=== PATIENT | female | born 1990 | race Caucasian/White ===

== ENCOUNTER 2021-12-20 11:04 | Inpatient (IN) ==
[2021-12-20] MEDS ORDERED: ONDANSETRON INJ 2 MG/ML 2 ML VIAL IV STA (12:04)
[2021-12-20] MEDS ORDERED: KETOROLAC TROMETHAMINE 15 MG/ML VIAL IV STA (12:04)
[2021-12-20] MEDS ORDERED: SODIUM CHLORIDE 0.9% 1000ML 1,000 ML IV STA (12:04)
[2021-12-20] MEDS ORDERED: CLINDAMYCIN/D5W 900 MG/50 ML BAG IV ONE (12:06)
--- NOTE | 2021-12-20 12:12 | Emergency Department Note ---
History of Present Illness General Chief complaint: Dental/Oral Stated complaint: POSSIBLE INFECTION IN MOUTH Time Seen by Provider: 12/20/21 11:56 Source: patient Mode of arrival: ambulatory Limitations: no limitations History of Present Illness Maximum Pain Intensity: 10 This patient is a 31-year-old female who comes in complaining of of right lower jaw pain and swelling. She has had a tooth ache for couple days and a lower molar on that side which has dental caries. It is gotten increasingly painful and swollen overnight it hurts to talk or swallow she said she had temperature up to 103 she has been using [id number] Tylenol but not exceeding [id number] dosages. No shortness of breath he does feel full. No nausea or vomiting she denies no abdominal pain no trauma or injury. She cannot eat because it hurts. Home Medications Medication Instructions Recorded Confirmed Type acetaminophen 500 mg tablet 0 mg PO DIRECTED PRN Pain 12/20/21 12/20/21 History (Tylenol Extra Strength) ferrous sulfate 325 mg (65 mg 325 mg PO 3XWK 12/20/21 12/20/21 History iron) tablet (iron) ibuprofen 200 mg tablet 0 mg PO Q6H PRN Pain 12/20/21 12/20/21 History Allergies Allergy/AdvReac Type Severity Reaction Status Date / Time penicillin V Allergy Unknown RX Verified 12/20/21 16:48 CHILD;HAD AMOXICILLIN W/O PROBLEM Past Med/Surg History Family History Other Family history non-contributory Social History Smoking Status: Current every day smoker Tobacco Type: Cigarettes Preferred Language: Croatian Feels Safe at Home: Yes Immunizations: Past medical historydenies. Denies diabetes. She does not have a current dentist or primary care physician Review of Systems A total of 10 systems reviewed and were otherwise negative Physical Exam Vital Signs Vital Signs - 24 hr 12/20/21 11:08 12/20/21 12:45 12/20/21 12:57 Temperature 36.6 C Temperature Source Temporal Artery Scan Pulse Rate 91 H 80 Pulse Rate from SpO2 Sensor Respiratory Rate 18 17 Respiratory Effort / Characteristics Non-Labored Spontaneous Respiratory Depth Normal Respiratory Pattern Regular Blood Pressure 137/98 Blood Pressure Mean 111 Blood Pressure Position Sitting Pulse Oximetry 99 95 Oxygen Delivery Method Room Air Room Air Sepsis Recent Fever Within 48 Hours Yes Sepsis New/Unexplained Change in Mental Status No Sepsis Action Taken by Nursing No Action Required 12/20/21 13:00 12/20/21 13:10 12/20/21 13:20 Temperature Temperature Source Pulse Rate 80 Pulse Rate from SpO2 Sensor Respiratory Rate 16 23 21 Respiratory Effort / Characteristics Respiratory Depth Respiratory Pattern Blood Pressure Blood Pressure Mean Blood Pressure Position Pulse Oximetry Oxygen Delivery Method Sepsis Recent Fever Within 48 Hours Sepsis New/Unexplained Change in Mental Status Sepsis Action Taken by Nursing 12/20/21 13:30 12/20/21 13:40 12/20/21 13:52 Temperature Temperature Source Pulse Rate 77 89 102 H Pulse Rate from SpO2 Sensor Respiratory Rate 15 24 22 Respiratory Effort / Characteristics Respiratory Depth Respiratory Pattern Blood Pressure Blood Pressure Mean Blood Pressure Position Pulse Oximetry Oxygen Delivery Method Sepsis Recent Fever Within 48 Hours Sepsis New/Unexplained Change in Mental Status Sepsis Action Taken by Nursing 12/20/21 14:14 12/20/21 14:20 12/20/21 14:23 Temperature Temperature Source Pulse Rate 85 85 Pulse Rate from SpO2 Sensor Respiratory Rate 17 22 Respiratory Effort / Characteristics Respiratory Depth Respiratory Pattern Blood Pressure 127/78 Blood Pressure Mean 94 Blood Pressure Position Pulse Oximetry Oxygen Delivery Method Sepsis Recent Fever Within 48 Hours Sepsis New/Unexplained Change in Mental Status Sepsis Action Taken by Nursing 12/20/21 14:23 12/20/21 14:30 12/20/21 14:30 Temperature Temperature Source Pulse Rate 76 77 Pulse Rate from SpO2 Sensor 74 81 Respiratory Rate 14 17 Respiratory Effort / Characteristics Respiratory Depth Respiratory Pattern Blood Pressure 128/82 Blood Pressure Mean 97 Blood Pressure Position Pulse Oximetry 99 98 Oxygen Delivery Method Sepsis Recent Fever Within 48 Hours Sepsis New/Unexplained Change in Mental Status Sepsis Action Taken by Nursing 12/20/21 14:40 12/20/21 14:50 12/20/21 15:00 Temperature Temperature Source Pulse Rate 85 72 Pulse Rate from SpO2 Sensor 81 74 Respiratory Rate 16 11 L Respiratory Effort / Characteristics Respiratory Depth Respiratory Pattern Blood Pressure 112/83 Blood Pressure Mean 92 Blood Pressure Position Pulse Oximetry 97 99 Oxygen Delivery Method Sepsis Recent Fever Within 48 Hours Sepsis New/Unexplained Change in Mental Status Sepsis Action Taken by Nursing 12/20/21 15:00 12/20/21 15:10 12/20/21 15:20 Temperature Temperature Source Pulse Rate 88 73 76 Pulse Rate from SpO2 Sensor Respiratory Rate 18 17 16 Respiratory Effort / Characteristics Respiratory Depth Respiratory Pattern Blood Pressure Blood Pressure Mean Blood Pressure Position Pulse Oximetry Oxygen Delivery Method Sepsis Recent Fever Within 48 Hours Sepsis New/Unexplained Change in Mental Status Sepsis Action Taken by Nursing 12/20/21 15:36 12/20/21 15:40 12/20/21 15:50 Temperature Temperature Source Pulse Rate 92 H 75 81 Pulse Rate from SpO2 Sensor Respiratory Rate 27 H 15 12 Respiratory Effort / Characteristics Respiratory Depth Respiratory Pattern Blood Pressure Blood Pressure Mean Blood Pressure Position Pulse Oximetry Oxygen Delivery Method Sepsis Recent Fever Within 48 Hours Sepsis New/Unexplained Change in Mental Status Sepsis Action Taken by Nursing 12/20/21 16:00 12/20/21 16:20 12/20/21 16:30 Temperature Temperature Source Pulse Rate 81 83 Pulse Rate from SpO2 Sensor Respiratory Rate 11 L 19 Respiratory Effort / Characteristics Respiratory Depth Respiratory Pattern Blood Pressure 127/91 Blood Pressure Mean 103 Blood Pressure Position Pulse Oximetry Oxygen Delivery Method Sepsis Recent Fever Within 48 Hours Sepsis New/Unexplained Change in Mental Status Sepsis Action Taken by Nursing 12/20/21 16:30 Temperature Temperature Source Pulse Rate 80 Pulse Rate from SpO2 Sensor Respiratory Rate 18 Respiratory Effort / Characteristics Respiratory Depth Respiratory Pattern Blood Pressure Blood Pressure Mean Blood Pressure Position Pulse Oximetry Oxygen Delivery Method Sepsis Recent Fever Within 48 Hours Sepsis New/Unexplained Change in Mental Status Sepsis Action Taken by Nursing General: Well developed well nourished young female who appears uncomfortable secondary to pain but in no acute respiratory distress, breathing comfortably on room air. Normal speech, not muffled. Not drooling. HEENT: Normal cephalic atraumatic. Pupils are equal round and reactive to light. Extraocular movements are intact. Oropharynx is pink with moist mucous membranes. No swelling of the mouth lips or tongue. She does have some swelli ng under the jaw on the right and towards the center. Looking in the mouth the floor the mouth is soft and nothing to suggest Ludewig's angina. There is a dental large dental carry on the right lower molar. No definite fluctuance she has a degree of trismus and is very tender Neck: Supple with a midline trachea. No meningeal signs or stiffness, no JVD or bruits. No Stridor. Chest: Clear to auscultation bilaterally. No wheezes or rhonchi. No increased work of breathing. Heart: Regular rate and rhythm without murmurs or gallops. Abdomen: Soft nontender, nondistended without rebound guarding or rigidity. Extremities: No cyanosis clubbing or edema. No calf tenderness or assymetry Spine/Back. Non tender to palpation. No CVA tenderness Skin: Good turgor without rashes. Neurologic exam: Cranial nerves two through 12 are intact. Motor and sensation are intact and symmetrical throughout. Course Administered Medications Discontinued Medications Sodium Chloride (Nss 1000ml) 1,000 mls @ 999 mls/hr IV .Q1H1M STA Stop: 12/20/21 13:04 Last Infusion: 12/20/21 13:43 Dose: 0 mls/hr Documented By: Admin: 12/20/21 12:37 Dose: 999 mls/hr Documented By: JONAS Clindamycin Phosphate (Cleocin/D5w) 900 mg in 50 mls @ 100 mls/hr IV NOW ONE Stop: 12/20/21 12:35 Last Infusion: 12/20/21 13:43 Dose: 0 mls/hr Documented By: Admin: 12/20/21 12:44 Dose: 100 mls/hr Documented By: LUKE Ioversol (Optiray 320 100ml) 94 ml IV ONCE ONE Stop: 12/20/21 14:06 Last Admin: 12/20/21 14:06 Dose: 94 ml Documented By: LAVELL Ketorolac Tromethamine (Ketorolac Tromethamine 15 Mg/Ml Vial) 10 mg IV NOW STA Stop: 12/20/21 12:05 Last Admin: 12/20/21 12:37 Dose: 10 mg Documented By: JONAS Morphine Sulfate (Morphine Sulfate 4 Mg/Ml 1 Ml Carp\\Vial) 4 mg IV NOW STA Stop: 12/20/21 13:24 Last Admin: 12/20/21 13:38 Dose: 4 mg Documented By: AM Morphine Sulfate (Morphine Sulfate 4 Mg/Ml 1 Ml Carp\\Vial) 4 mg IV NOW STA Stop: 12/20/21 17:17 Last Admin: 12/20/21 17:23 Dose: 4 mg Documented By: [facility] Ondansetron HCl (Ondansetron Inj 2 Mg/Ml 2 Ml Vial) 4 mg IV NOW STA Stop: 12/20/21 12:05 Last Admin: 12/20/21 12:37 Dose: 4 mg Documented By: NDW Medical Decision Making Differential Diagnosis Dental carry, abscess, Ludewig's angina, cellulitis Medical Records Attestation: I reviewed the patient's medical records. Home Medications Current Medication List: was personally reviewed by me Laboratory Data Attestation: I reviewed the patient's lab results. Result diagrams: 12/20/21 12:35 12/20/21 12:35 Lab Results 12/20/21 12/20/21 12/20/21 Range/Units 12:35 12:35 12:35 WBC 13.30 H (4.8-10.8) K/ul RBC 4.30 (3.93-5.22) M/uL Hgb 13.6 (12.0-16.0) g/dl Hct 40.0 (34.1-44.9) % MCV 93.0 (80.0-100.0) fL MCH 31.6 (25.0-34.0) pg MCHC 34.0 (32.0-36.0) g/dL RDW Std Deviation 41.2 (36.4-46.3) fL RDW Coeff of Amber 12.1 (11.5-14.5) % Plt Count 319 (130-400) K/uL MPV 9.0 L (9.4-12.3) fL Immature Gran % (Auto) 0.3 % Neut % (Auto) 71.7 % Lymph % (Auto) 17.5 % Mcmullen % (Auto) 9.3 % Eos % (Auto) 0.7 % Baso % (Auto) 0.5 % Neut # (Auto) 9.53 H (1.4-6.5) K/uL Lymph # (Auto) 2.33 (1.2-3.4) K/uL Mcmullen # (Auto) 1.24 H (0.24-0.82) K/uL Eos # (Auto) 0.09 (0-0.50) K/uL Baso # (Auto) 0.07 (0-0.2) K/uL Immature Gran # (Auto) 0.04 H (0.00-0.02) K/uL Sodium 138 (136-145) mmol/L Potassium 3.0 L (3.5-5.1) mmol/L Chloride 107 (98-107) mmol/L Carbon Dioxide 24 (21-32) mmol/L Anion Gap 7 (3-11) BUN 7 (6-23) mg/dl Creatinine 0.60 (0.6-1.2) mg/dl Est Cr Clr Drug Dosing 143.0 ml/min Est GFR ( Amer) 139.8 ml/min Est GFR (Non-Af Amer) 120.6 ml/min BUN/Creatinine Ratio 11.7 (10-20) Glucose 102 H (70-99(Fasting)) mg/dl Calcium 8.9 (8.5-10.1) mg/dl Total Bilirubin 0.8 (0.2-1.0) mg/dl AST 14 (13-39) U/L ALT 12 (7-52) U/L Alkaline Phosphatase 61 (34-104) U/L Total Protein 6.7 (6.0-8.3) gm/dl Albumin 4.1 (3.4-5.0) gm/dl Globulin 2.6 (2.5-4.0) gm/dl Albumin/Globulin Ratio 1.6 (0.9-2) HCG, Qual Negative (Negative) SARS-CoV-2, RNA, NAAT (NEGATIVE) 12/20/21 Range/Units 12:48 WBC (4.8-10.8) K/ul RBC (3.93-5.22) M/uL Hgb (12.0-16.0) g/dl Hct (34.1-44.9) % MCV (80.0-100.0) fL MCH (25.0-34.0) pg MCHC (32.0-36.0) g/dL RDW Std Deviation (36.4-46.3) fL RDW Coeff of Amber (11.5-14.5) % Plt Count (130-400) K/uL MPV (9.4-12.3) fL Immature Gran % (Auto) % Neut % (Auto) % Lymph % (Auto) % Mcmullen % (Auto) % Eos % (Auto) % Baso % (Auto) % Neut # (Auto) (1.4-6.5) K/uL Lymph # (Auto) (1.2-3.4) K/uL Mcmullen # (Auto) (0.24-0.82) K/uL Eos # (Auto) (0-0.50) K/uL Baso # (Auto) (0-0.2) K/uL Immature Gran # (Auto) (0.00-0.02) K/uL Sodium (136-145) mmol/L Potassium (3.5-5.1) mmol/L Chloride (98-107) mmol/L Carbon Dioxide (21-32) mmol/L Anion Gap (3-11) BUN (6-23) mg/dl Creatinine (0.6-1.2) mg/dl Est Cr Clr Drug Dosing ml/min Est GFR ( Amer) ml/min Est GFR (Non-Af Amer) ml/min BUN/Creatinine Ratio (10-20) Glucose (70-99(Fasting)) mg/dl Calcium (8.5-10.1) mg/dl Total Bilirubin (0.2-1.0) mg/dl AST (13-39) U/L ALT (7-52) U/L Alkaline Phosphatase (34-104) U/L Total Protein (6.0-8.3) gm/dl Albumin (3.4-5.0) gm/dl Globulin (2.5-4.0) gm/dl Albumin/Globulin Ratio (0.9-2) HCG, Qual (Negative) SARS-CoV-2, RNA, NAAT NEGATIVE (NEGATIVE) Imaging Data Radiologist's Impression: Soft Tissue Neck CT 12/20/21 12:06 CT SCAN OF THE NECK WITH IV CONTRAST CLINICAL HISTORY: Right-sided neck pain and swelling. Clinical concern for abscess. COMPARISON STUDY: CT of the neck dated 09/29/2021. TECHNIQUE: Following the IV administration of 94 cc of Optiray 320, CT scan of the soft tissues of the neck was performed from the skull base to the upper chest. Images are reviewed in the axial, sagittal, and coronal planes. IV contrast was administered without complication. A dose lowering technique was utilized adhering to the principles of ALARA. CT DOSE: 530.17 mGy.cm FINDINGS: Dentition: There is a large periapical lucency involving the most posterior right mandibular molar. There is cortical breakthrough along the posterior cortex. There is a 1.0 cm periodontal abscess seen deep to the mandible on axial image #207. There is surrounding sublingual soft tissue infiltration which inv olves the floor the mouth. Pharynx: As noted above, there is subsegmental inflammation related to a periodontal abscess. Edema involves the anterior pharyngeal soft tissues, right greater than left. As well as the right parapharyngeal fat. There is also mild edema of the right-sided tonsils. There is no peritonsillar fluid collection. The pharyngeal airway is patent. There is no evidence of mass lesion. The vocal cords are symmetric. The left parapharyngeal fat is well maintained. The prevertebral/retropharyngeal soft tissues are within normal limits. There is mild edema of the epiglottis. Soft tissues: There is infiltration of the deep soft tissues in the anterior neck bilaterally, right greater than left. This extends from the mandible to the level of the thyroid cartilage. Lymphadenopathy: There are numerous mildly enlarged cervical lymph nodes which measure up to 1.5 cm in length. These are likely reactive Thyroid: Normal in size and attenuation. Salivary glands: The parotid glands and the left submandibular gland are within normal limits. There is infiltration around the right submandibular gland. Brain parenchyma: The visualized brain parenchyma at the skull base is normal in appearance. Vascular structures: The carotid arteries and jugular veins are patent. The left vertebral artery is diminutive and terminates as the PICA. Skeletal structures: Imaged portions of the calvarium at the skull base are within normal limits. The cervical spine appears intact. Orbits: The bony orbits are intact. Orbital contents are normal as visualized. Sinuses and mastoids: There is trace mucosal thickening within the maxillary antra. The remaining paranasal sinuses are clear. The mastoid air cells are well pneumatized. Lung apices: A 6 mm groundglass nodule is seen at the left apex on image #385. This is unchanged. Upper lobe lung parenchyma is otherwise clear as imaged there An accessory azygous fissure is incidentally noted. Imaged portions of the trachea are patent. IMPRESSION: 1. There is a large periapical lucency involving the most posterior right mandibular molar with associated cortical breakthrough and a 1.0 cm periodontal abscess deep to the mandible. 2. Inflammation involves the right sublingual space, the right floor the mouth, and extends to the anterior pharynx as well as the right parapharyngeal soft tissue. Olman's angina is not excluded and clinical correlation will be essen tial. 3. There is associated superficial cellulitis of the right anterior neck and reactive cervical lymphadenopathy. There is also reactive inflammation around the right submandibular gland. 4. No significant airway compromise is identified at this time. 5. A 6 mm groundglass nodule is again seen at the left apex. ACT 112: Negative or not required by law. Electronically signed by: Lm Morales M.D. 12/20/2021 2:24 PM MDM Narrative This patient comes in as described above. 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 She has dental caries and now has some jaw swelling. IV access established and she was hydrated with a 1 L IV normal saline bolus given the fact that she is having hard time eating. She has no evidence that she has any airway compromise on my exam the floor the mouth is soft and the trachea is midline. She has no stridor. I did order blood work I ordered clindamycin 900 mg IV given the fact that she is allergic to penicillin. I also gave her Toradol 10 mg IV for pain. CAT scan was obtained to evaluate for possible abscess or deeper infection. She was reassessed frequently. She did receive if morphine 4 mg IV and was resting comfortably. The patient did have an abscess on CT that appears to be dental in origin there is concerns for an early developing Ludewig's but the airway is intact. I discussed with Dr. Hendrix, who recommended that I talked to Dr. Dawkins as this was an odontogenic process. Dr. Dawkins agrees and he will see the patient today he wants to keep the patient on antibiotics and fluids and pain management and he will plan on operating on her. He wanted to have the medical team see her for admission. Continuous cardiac monitoring: Orders placed in EMR for continuous cardiac monitoring. Upon my interpretation she was noted to be in normal sinus rhythym at 80. Impression & Plan Olman's angina, Toothache, Dental caries, Periodontal abscess, Not currently , Lab test negative for COVID-19 virus Discharge Plan Visit Data Chief Complaint: Dental/Oral Stated Complaint: POSSIBLE INFECTION IN MOUTH ED Provider: Brandyn Cardoza Discharge Problem: Olman's angina, Toothache, Dental caries, Periodontal abscess, Not currently , Lab test negative for COVID-19 virus Forms Stand Alone Forms: My [facility] Prescriptions Prescriptions: No Action acetaminophen [Tylenol Extra Strength] 500 mg Tablet 0 mg PO DIRECTED PRN (Reason: Pain) Rx Instructions: PER PT " MANY POSSIBLE WITHOUT OVERDOSING". ferrous sulfate [iron] 325 mg (65 mg iron) Tablet 325 mg PO 3XWK Rx Instructions: PER PT "USUALLY 2-3 X WK". ibuprofen 200 mg Tablet 0 mg PO Q6H PRN (Reason: Pain) Rx Instructions: PER PT " MANY POSSIBLE WITHOUT OVERDOSING". Referrals Referrals: PCP,NO [Primary Care Provider] -
[2021-12-20 13:06] LABS: Basophils # (auto) 0.07 K/uL (0-0.2); Basophils % (auto) 0.5 %; Eosinophils # (auto) 0.09 K/uL (0-0.50); Eosinophils % (auto) 0.7 %; Hemoglobin 13.6 g/dl (12.0-16.0); Immature Granulocytes # (auto) 0.04 K/uL (0.00-0.02); Immature Granulocytes % (auto) 0.3 %; Lymphocytes # (auto) 2.33 K/uL (1.2-3.4); Lymphocytes % (auto) 17.5 %; Mean Corpuscular Hemoglobin 31.6 pg (25.0-34.0); Monocytes # (auto) 1.24 K/uL (0.24-0.82); Monocytes % (auto) 9.3 %; Neutrophils # (auto) 9.53 K/uL (1.4-6.5); Neutrophils % (auto) 71.7 %; Platelet Count 319 K/uL (130-400); RDW Coefficient of Variation 12.1 % (11.5-14.5); RDW Standard Deviation 41.2 fL (36.4-46.3)
[2021-12-20] MEDS ORDERED: MoRPHine SULFATE 4 MG/ML 1 ML CARP\\VIAL IV STA ×3 (13:23→19:40)
[2021-12-20 13:25] LABS: Pregnancy Test, Serum Negative (Negative)
[2021-12-20 13:26] LABS: Albumin Globulin Ratio 1.6 (0.9-2); Albumin Level 4.1 gm/dl (3.4-5.0); BUN Creatinine Ratio 11.7 (10-20); Bilirubin,Total 0.8 mg/dl (0.2-1.0); Calcium 8.9 mg/dl (8.5-10.1); Est GFR (African American) 139.8 ml/min; Est GFR (Non-African American) 120.6 ml/min; Globulin 2.6 gm/dl (2.5-4.0); Total Protein 6.7 gm/dl (6.0-8.3)
[2021-12-20] MEDS ORDERED: OPTIRAY 320 100ml IV ONE (14:05)
--- NOTE | 2021-12-20 14:25 | CT Scan Report ---
CT SCAN OF THE NECK WITH IV CONTRAST CLINICAL HISTORY: Right-sided neck pain and swelling. Clinical concern for abscess. COMPARISON STUDY: CT of the neck dated 09/29/2021. TECHNIQUE: Following the IV administration of 94 cc of Optiray 320, CT scan of the soft tissues of th e neck was performed from the skull base to the upper chest. Images are reviewed in the axial, sagitt al, and coronal planes. IV contrast was administered without complication. A dose lowering techniqu e was utilized adhering to the principles of ALARA. CT DOSE: 530.17 mGy.cm FINDINGS: Dentition: There is a large periapical lucency involving the most posterior right mandibular molar. T here is cortical breakthrough along the posterior cortex. There is a 1.0 cm periodontal abscess seen deep to the mandible on axial image #207. There is surrounding sublingual soft tissue infiltration wh ich involves the floor the mouth. Pharynx: As noted above, there is subsegmental inflammation related to a periodontal abscess. Edema i nvolves the anterior pharyngeal soft tissues, right greater than left. As well as the right paraphary ngeal fat. There is also mild edema of the right-sided tonsils. There is no peritonsillar fluid colle ction. The pharyngeal airway is patent. There is no evidence of mass lesion. The vocal cords are symm etric. The left parapharyngeal fat is well maintained. The prevertebral/retropharyngeal soft tissues are within normal limits. There is mild edema of the epiglottis. Soft tissues: There is infiltration of the deep soft tissues in the anterior neck bilaterally, right greater than left. This extends from the mandible to the level of the thyroid cartilage. Lymphadenopathy: There are numerous mildly enlarged cervical lymph nodes which measure up to 1.5 cm i n length. These are likely reactive Thyroid: Normal in size and attenuation. Salivary glands: The parotid glands and the left submandibular gland are within normal limits. There is infiltration around the right submandibular gland. Brain parenchyma: The visualized brain parenchyma at the skull base is normal in appearance. Vascular structures: The carotid arteries and jugular veins are patent. The left vertebral artery is diminutive and terminates as the PICA. Skeletal structures: Imaged portions of the calvarium at the skull base are within normal limits. The cervical spine appears intact. Orbits: The bony orbits are intact. Orbital contents are normal as visualized. Sinuses and mastoids: There is trace mucosal thickening within the maxillary antra. The remaining par anasal sinuses are clear. The mastoid air cells are well pneumatized. Lung apices: A 6 mm groundglass nodule is seen at the left apex on image #385. This is unchanged. Upp er lobe lung parenchyma is otherwise clear as imaged there An accessory azygous fissure is incidental ly noted. Imaged portions of the trachea are patent. IMPRESSION: 1. There is a large periapical lucency involving the most posterior right mandibular molar with assoc iated cortical breakthrough and a 1.0 cm periodontal abscess deep to the mandible. 2. Inflammation involves the right sublingual space, the right floor the mouth, and extends to the an terior pharynx as well as the right parapharyngeal soft tissue. Olman's angina is not excluded and c linical correlation will be essential. 3. There is associated superficial cellulitis of the right anterior neck and reactive cervical lympha denopathy. There is also reactive inflammation around the right submandibular gland. 4. No significant airway compromise is identified at this time. 5. A 6 mm groundglass nodule is again seen at the left apex. ACT 112: Negative or not required by law. Electronically signed by: Lm Morales M.D. 12/20/2021 2:24 PM
--- NOTE | 2021-12-20 16:06 | History & Physical Report ---
Date of Service December 20, 2021 Assessment & Plan (1) Periodontal abscess: Plan: With significant swelling in anterior neck, cervical reactive lymphadenopathy, 1.0 cm periodontal abscess seen deep to the mandible in right posterior mandibular molar, with surrounding sublingual soft tissue infiltration involving the floor of the mouth as well as subsegmental inflammation with edema involving the anterior pharyngeal soft tissues, right greater than left as well as in right parapharyngeal fat with patent airway, mild edema of epiglottis, as well as infiltration in deep soft tissues in anterior neck bilaterally R>L from mandible to thyroid cartilage. 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 - Clindamycin 900mg IV Q8h and add Levaquin 750mg IV daily as per UpToDate recommendations for Olman's angina (given PCN allergy) - Tylenol for pain fevers, IV Toradol, morphine for pain. Anti emetics ordered. - IVF with K riders for repletion. - Oral/maxillofacial surgery consulted, appreciate their recommendations. -watch for worsening of airway status, if worsens, would need practive intubation -steroids not recommended to be given as per review of UpToDate as no benefit (2) Hypokalemia: Plan: - 3.0, in setting of poor PO intake. - Will replace in IVF, recheck with AM labs. (3) Lung nodule seen on imaging study: Plan: 6mm ground glass nodule again seen in left apex when compared to CT neck she had in 09/2021 Needs outpt follow up and CT Chest as outpt with PCP Plan - Admit to med/surg. - SCDs for VTE ppx. - Full Code. History of Present Illness Chief Complaint: right side jaw pain, swelling x 2 days Primary Care Provider: NO PCP Yancy Ramesh is a 31-year-old previously healthy female who presents today with right lower jaw pain. Patient has had a cracked tooth on her right side for 1-2 years now that she has known about, however over the past 2 days she developed some redness on the right side of her jaw, and beginning yesterday this rapidly turned into severe swelling, severe pain, and is associated with fevers at home. She does not have SOB or difficulty with secretions, however the swelling and pain has made it very difficult for her to eat, drink, and speak. In ED, her vital signs are within normal limits and stable. Labs are significant for elevated WBC at 13.30, potassium 10.0. test negative. CT of the soft tissues of the neck showed a large periapical lucency involving most posterior right mandibular molar associated cortical breakthrough and a 1.0 cm periodontal abscess deep to the mandible as well as inflammation involving large portion of the right sublingual space, mouth floor, and anterior phraynx and parapharyngeal soft tissue. Associated superficial cellulitis of the right anterior neck with reactive cervical lymphadenopathy noted. Allergies Allergy/AdvReac Type Severity Reaction Status Date / Time penicillin V Allergy Unknown RX Verified 12/20/21 16:48 CHILD;HAD AMOXICILLIN W/O PROBLEM Home Medications Medication Instructions Recorded Confirmed Type acetaminophen 500 mg tablet 0 mg PO DIRECTED PRN Pain 12/20/21 12/20/21 History (Tylenol Extra Strength) ferrous sulfate 325 mg (65 mg 325 mg PO 3XWK 12/20/21 12/20/21 History iron) tablet (iron) ibuprofen 200 mg tablet 0 mg PO Q6H PRN Pain 12/20/21 12/20/21 History Past Med/Surg History Medical History (Updated 12/20/21 @ 20:06 by Oneida Damon MD) Lung nodule seen on imaging study No pertinent past medical history Surgical History No history of previous surgery Family History Other Family history non-contributory Social History Smoking Status: Current every day smoker Tobacco Type: Cigarettes Preferred Language: Latvian Feels Safe at Home: Yes Review of Systems Review of Systems: Constitutional: fever/chills x 1 day; no weakness, fatigue, myalgias, anorexia, night sweats Eyes: No diplopia, no worsening or blurred vision ENT: right sided jaw pain, swelling with difficulty swallowing liquids, chewing, talking Respiratory: No cough, sputum, dyspnea at rest or on exertion Cardiovascular: No chest pain, tightness or palpitations Abdomen: No pain, nausea, vomiting, diarrhea or constipation : Denies dysuria, hematuria, increased urgency/frequency, urinary retention Musculoskeletal: No joint pain, calf pain, swelling Neurologic: No weakness, numbness/tingling, or balance problems Psychiatric: No anxiety or depression Skin: No rash or itch Physical Exam Physical Exam: General: awake, alert, no apparent distress Head: Normocephalic, atraumatic ENT: airway difficult to assess d/t pain with opening jaw, however patient maintaining airway, without breathing or swallowing difficulty; PERRL, EOMI, no pharyngeal exudate, mucous membranes moist Chest: Clear to auscultation, on room air, no adventitious breath sounds Cardiac: Regular rate and rhythm, no murmur, no JVD, normal peripheral pulses, good capillary refill Abdominal: NABS x 4 quadrants, soft, nontender to palpation, no rebound, guarding or tenderness Extremities: Normal inspection, no peripheral edema or erythema, calfs nontender to palpation Psych: Normal mood and affect Neuro: AAO x 3, strength intact bilaterally and rated 5/5, no motor deficits, speech is clear, no peripheral sensory deficits Skin: no rash or erythema Results & Data Results & Data ([facility]) Vital Signs (Past 12 Hours) Vital Signs Temp Pulse Resp BP Pulse Ox O2 Del Method 12/20/21 15:50 81 12 12/20/21 15:40 75 15 12/20/21 15:36 92 H 27 H 12/20/21 15:20 76 16 12/20/21 15:10 73 17 12/20/21 15:00 88 18 12/20/21 15:00 112/83 12/20/21 14:50 72 11 L 99 12/20/21 14:40 85 16 97 12/20/21 14:30 77 17 98 12/20/21 14:30 128/82 12/20/21 14:23 76 14 99 12/20/21 14:23 127/78 12/20/21 14:20 85 22 12/20/21 14:14 85 17 12/20/21 13:52 102 H 22 12/20/21 13:40 89 24 12/20/21 13:30 77 15 12/20/21 13:20 21 12/20/21 13:10 23 12/20/21 13:00 80 16 12/20/21 12:57 80 17 12/20/21 12:45 95 Room Air 12/20/21 11:08 36.6 C 91 H 18 137/98 99 Room Air Laboratory Results Abnormal lab results 12/20/21 12/20/21 Range/Units 12:35 12:35 WBC 13.30 H (4.8-10.8) K/ul MPV 9.0 L (9.4-12.3) fL Neut # (Auto) 9.53 H (1.4-6.5) K/uL Haskell # (Auto) 1.24 H (0.24-0.82) K/uL Immature Gran # (Auto) 0.04 H (0.00-0.02) K/uL Potassium 3.0 L (3.5-5.1) mmol/L Glucose 102 H (70-99(Fasting)) mg/dl Diagnostic Findings Soft Tissue Neck CT 12/20/21 12:06 CT SCAN OF THE NECK WITH IV CONTRAST CLINICAL HISTORY: Right-sided neck pain and swelling. Clinical concern for abscess. COMPARISON STUDY: CT of the neck dated 09/29/2021. TECHNIQUE: Following the IV administration of 94 cc of Optiray 320, CT scan of the soft tissues of the neck was performed from the skull base to the upper chest. Images are reviewed in the axial, sagittal, and coronal planes. IV c ontrast was administered without complication. A dose lowering technique was utilized adhering to the principles of ALARA. CT DOSE: 530.17 mGy.cm FINDINGS: Dentition: There is a large periapical lucency involving the most posterior right mandibular molar. There is cortical breakthrough along the posterior cortex. There is a 1.0 cm periodontal abscess seen deep to the mandible on axial image #207. There is surrounding sublingual soft tissue infiltration which involves the floor the mouth. Pharynx: As noted above, there is subsegmental inflammation related to a periodontal abscess. Edema involves the anterior pharyngeal soft tissues, right greater than left. As well as the right parapharyngeal fat. There is also mild edema of the right-sided tonsils. There is no peritonsillar fluid collection. The pharyngeal airway is patent. There is no evidence of mass lesion. The vocal cords are symmetric. The left parapharyngeal fat is well maintained. The prevertebral/retropharyngeal soft tissues are within normal limits. There is mild edema of the epiglottis. Soft tissues: There is infiltration of the deep soft tissues in the anterior neck bilaterally, right greater than left. This extends from the mandible to the level of the thyroid cartilage. Lymphadenopathy: There are numerous mildly enlarged cervical lymph nodes which measure up to 1.5 cm in length. These are likely reactive Thyroid: Normal in size and attenuation. Salivary glands: The parotid glands and the left submandibular gland are within normal limits. There is infiltration around the right submandibular gland. Brain parenchyma: The visualized brain parenchyma at the skull base is normal in appearance. Vascular structures: The carotid arteries and jugular veins are patent. The left vertebral artery is diminutive and terminates as the PICA. Skeletal structures: Imaged portions of the calvarium at the skull base are within normal limits. The cervical spine appears intact. Orbits: The bony orbits are intact. Orbital contents are normal as visualized. Sinuses and mastoids: There is trace mucosal thickening within the maxillary antra. The remaining paranasal sinuses are clear. The mastoid air cells are well pneumatized. Lung apices: A 6 mm groundglass nodule is seen at the left apex on image #385. This is unchanged. Upper lobe lung parenchyma is otherwise clear as imaged there An accessory azygous fissure is incidentally noted. Imaged portions of the trachea are patent. IMPRESSION: 1. There is a large periapical lucency involving the most posterior right mandibular molar with associated cortical breakthrough and a 1.0 cm periodontal abscess deep to the mandible. 2. Inflammation involves the right sublingual space, the right floor the mouth, and extends to the anterior pharynx as well as the right parapharyngeal soft tissue. Olman's angina is not excluded and clinical correlation will be essential. 3. There is associated superficial cellulitis of the right anterior neck and reactive cervical lymphadenopathy. There is also reactive inflammation around the right submandibular gland. 4. No significant airway compromise is identified at this time. 5. A 6 mm groundglass nodule is again seen at the left apex. ACT 112: Negative or not required by law. Electronically signed by: Lm Morales M.D. 12/20/2021 2:24 PM Code Status & VTE Plan Code Status Full Code. Supervising Physician Co-Signing Physician Notes PA Supervision Note: I personally saw and examined the patient. I verified all ragsdale points and agree with FORREST Mondragon with the following exceptions and/or additions: S-Pt presents with worsening neck swelling and right sided neck pain, fevers. She has a known cracked tooth but hasn't been able to see a dentist. SHe was seen at our ER in September 2021 and diagnosed with strep throat and had ncerotic appearing lymphadenopathy on right neck at that time, sent home with antibiotics. She c/o severe pain in neck R>L, worse with tilting head backwards or trying to lie down. Having pain with swallowing O- Vitals reviewed Gen: [AAOx3, NAD, tearful due to pain] HEENT: [anicteric sclerae, EOMI, posterior OP patent, with no swelling noted under tongue, +anterior and submental edema R>L with ++TTP on exam, no erythema of skin of neck, no masses palpable] CV: [RRR no mgr nl S1S2] Pulm: [CTAB no wcr, no stridor] Abd: [+BS soft NT ND no masses or hernias] Ext: [no edema] Skin: [no rashes, warm/dry] Neuro: [full strength throughout] Labs, Rads, and ECG reviewed A/P-31 yo female here with dental infection spreading to neck with possible early Olman's angina Plan updated/modified as above-continue antibiotics, pain control, await surgical eval by Dr. Dawkins PG Care Time/CCT Total # of Minutes Spent Total Time Spent with Patient: Total time spent is greater than 50% in coordination of care (as documented) at patient's floor/unit and/or counseling patient: Coding Level of Care Code 88587 Initial Inpt Care Lvl 1 Diagnoses Periodontal abscess K05.219 Hypokalemia E87.6 Lung nodule seen on imaging study R91.1
[2021-12-20] MEDS ORDERED: MoRPHine SULFATE 2 MG/ML CARP IV PRN (19:54)
[2021-12-20] MEDS ORDERED: MoRPHine SULFATE 4 MG/ML 1 ML CARP\\VIAL IV PRN (19:54)
[2021-12-20] MEDS ORDERED: KETOROLAC TROMETHAMINE 15 MG/ML VIAL IV PRN (19:54)
[2021-12-20] MEDS ORDERED: levoFLOXacin/D5W 750 MG/150 ML BAG IV STA (20:17)
[2021-12-20] MEDS ORDERED: KETOROLAC TROMETHAMINE 15 MG/ML VIAL IV ONE (20:30)
--- NOTE | 2021-12-20 20:44 | Oral/Maxillofacial Consult ---
Date of Consultation December 20, 2021 Assessment & Plan (1) Olman's angina: This is an early diagnosis as there is swelling floor of the mouth, submandibular, submental and masseter space. (2) Dental caries: # 31 gross DK (3) Trismus: secondary to the acute infection (4) Swelling of submandibular region: Plan To OR in AM FOR I AND D AND EXTRACTION # 31 History of Present Illness Reason for Consultation: acute facial swelling right and neck Attending Physician: Oneida Damon MD History of Present Illness Oral Maxillofacial Surgery Exam Present Complaint: I have pain/swelling/drainage from my infected lower right second molar # 31 Symptoms have been ongoing for a while. Tooth grossly decayed for over 2 years Last night developed pain and facial swelling--getting worse Oral Exam: Finding- Swelling in the division controller space, submandibular, floor of the mouth, edema in the submental space--this is a early Olman infection. tender gingival tissue with deep pocket formation.# 31 infected removal is clinical indicated. I and D needed intraoral ? extra oral given extend of the infection. Imaging: CT SCAN OF THE NECK WITH IV CONTRAST CLINICAL HISTORY: Right-sided neck pain and swelling. Clinical concern for abscess. COMPARISON STUDY: CT of the neck dated 09/29/2021. FINDINGS: Dentition: There is a large periapical lucency involving the most posterior right mandibular molar. There is cortical breakthrough along the posterior cortex. There is a 1.0 cm periodontal abscess seen deep to the mandible on axial image #207. There is surrounding sublingual soft tissue infiltration which involves the floor the mouth. Pharynx: As noted above, there is subsegmental inflammation related to a periodontal abscess. Edema involves the anterior pharyngeal soft tissues, right greater than left. As well as the right parapharyngeal fat. There is also mild edema of the right-sided tonsils. There is no peritonsillar fluid collection. The pharyngeal airway is patent. There is no evidence of mass lesion. The vocal cords are symmetric. The left parapharyngeal fat is well maintained. The prevertebral/retropharyngeal soft tissues are within normal limits. There is mild edema of the epiglottis. Soft tissues: There is infiltration of the deep soft tissues in the anterior neck bilaterally, right greater than left. This extends from the mandible to the level of the thyroid cartilage. Lymphadenopathy: There are numerous mildly enlarged cervical lymph nodes which measure up to 1.5 cm in length. These are likely reactive Thyroid: Normal in size and attenuation. Salivary glands: The parotid glands and the left submandibular gland are within normal limits. There is infiltration around the right submandibular gland. Sinuses and mastoids: There is trace mucosal thickening within the maxillary antra. The remaining paranasal sinuses are clear. The mastoid air cells are well pneumatized. Lung apices: A 6 mm ground glass nodule is seen at the left apex on image #385. This is unchanged. Upper lobe lung parenchyma is otherwise clear as imaged there An accessory azygous fissure is incidentally noted. Imaged portions of the trachea are patent. IMPRESSION: 1. There is a large periapical lucency involving the most posterior right mandibular molar with associated cortical breakthrough and a 1.0 cm periodontal abscess deep to the mandible. TOOTH # 31 2. Inflammation involves the right sublingual space, the right floor the mouth, and extends to the anterior pharynx as well as the right parapharyngeal soft tissue. Olman's angina is not excluded and clinical correlation will be essential. 3. There is associated superficial cellulitis of the right anterior neck and reactive cervical lymphadenopathy. There is also reactive inflammation around the right submandibular gland. 4. No significant airway compromise is identified at this time. 5. A 6 mm ground glass nodule is again seen at the left apex. Soft tissue: Swollen -floor of the mouth, tongue, submandibular space Soft tissue edema right neck and chin area. hard/soft palate, posterior pharyngeal area all with in normal limits, no pathology or abnormal findings noted. Oral Care: Overall oral care is good except for # 31 Occlusion: Class I TMJ exam: Because of limited opening not able to test ROM or function Periodontal exam: Healthy gingival tissue without evidence of periodontal pathology. Lower right shows sign of chronic periodontal disease due to the carious # 31 Head/Neck exam: Neck is swollen right side, FROM is somewhat limited due to acute infection Able to extend and flex neck with some difficulty due to infection, no airway issues, no evidence of sleep apnea. Treatment Plan: Admission for IV antibiotics, fluids and pain control. Take to OR tomorrow --NPO tonight Extraction # 31 , I&D infected spaces Set up with general anesthesia in hospital due to complexity of the procedure We will determine need for hospital stay after the OR procedure and her response to the I&D I reviewed the treatment plan and consent with the patient . Understanding was expressed. Time was given for questions regarding the surgery, risks and post op care. Discussed alternative to treatment--procedure as planned, Do not do surgery The following teeth are decayed and fractured and removal is indicated PRESTON:# 31 with intr/extraoral I&D Risks discussed: Bleeding,Pain,swelling,infection, dry socket, delayed healing, nerve injury to face,lips,tongue,chin area which could be permanent (rare). TMJ, jaw stiffness, change in bite (rare), ear pain (referred). Sinus problems like fistula or infection. Need to leave a small root fragment in place to avoid injury to nerve or sinus. Relationship of infected # 31 to nerve/sinus and risk of jaw fracture. Home care reviewed: tooth brushing, rinsing, follow up care with Dr Dawkins. diet=[id number]-isod dental. Discussed activity level, driving/work while on Rx pain Meds. Surgery to be set up in OR tomorrow with [facility] CONSENT SIGNED Allergies Allergy/AdvReac Type Severity Reaction Status Date / Time penicillin V Allergy Unknown RX Verified 12/20/21 16:48 CHILD;HAD AMOXICILLIN W/O PROBLEM Home Medications Medication Instructions Recorded Confirmed Type acetaminophen 500 mg tablet 0 mg PO DIRECTED PRN Pain 12/20/21 12/20/21 Histo ry (Tylenol Extra Strength) ferrous sulfate 325 mg (65 mg 325 mg PO 3XWK 12/20/21 12/20/21 History iron) tablet (iron) ibuprofen 200 mg tablet 0 mg PO Q6H PRN Pain 12/20/21 12/20/21 History Patient History Medical History (Updated 12/20/21 @ 20:49 by Torsten Dawkins DMD) Lung nodule seen on imaging study No pertinent past medical history Surgical History No history of previous surgery Family History Other Family history non-contributory Social History Smoking Status: Current every day smoker Tobacco Type: Cigarettes Preferred Language: German Feels Safe at Home: Yes Results & Data ([facility]) Vital Signs (Past 12 Hours) Vital Signs Temp Pulse Pulse Resp BP BP Pulse Ox 12/20/21 19:20 92 H 18 129/94 96 12/20/21 16:30 80 18 12/20/21 16:30 127/91 12/20/21 16:20 83 19 12/20/21 16:00 81 11 L 12/20/21 15:50 81 12 12/20/21 15:40 75 15 12/20/21 15:36 92 H 27 H 12/20/21 15:20 76 16 12/20/21 15:10 73 17 12/20/21 15:00 88 18 12/20/21 15:00 112/83 12/20/21 14:50 72 11 L 99 12/20/21 14:40 85 16 97 12/20/21 14:30 77 17 98 12/20/21 14:30 128/82 12/20/21 14:23 76 14 99 12/20/21 14:23 127/78 12/20/21 14:20 85 22 12/20/21 14:14 85 17 12/20/21 13:52 102 H 22 12/20/21 13:40 89 24 12/20/21 13:30 77 15 12/20/21 13:20 21 12/20/21 13:10 23 12/20/21 13:00 80 16 12/20/21 12:57 80 17 12/20/21 12:45 95 12/20/21 11:08 36.6 C 91 H 18 137/98 99 O2 Del Method 12/20/21 19:20 Room Air 12/20/21 16:30 12/20/21 16:30 12/20/21 16:20 12/20/21 16:00 12/20/21 15:50 12/20/21 15:40 12/20/21 15:36 12/20/21 15:20 12/20/21 15:10 12/20/21 15:00 12/20/21 15:00 12/20/21 14:50 12/20/21 14:40 12/20/21 14:30 12/20/21 14:30 12/20/21 14:23 12/20/21 14:23 12/20/21 14:20 12/20/21 14:14 12/20/21 13:52 12/20/21 13:40 12/20/21 13:30 12/20/21 13:20 12/20/21 13:10 12/20/21 13:00 12/20/21 12:57 12/20/21 12:45 Room Air 12/20/21 11:08 Room Air PG Care Time/CCT Total # of Minutes Spent Total Time Spent with Patient: Total time spent is greater than 50% in coordination of care (as documented) at patient's floor/unit and/or counseling patient: 50 Prolonged Care Time 60 MINUTES Coding Level of Care Code 23952 Inpt Consult Level 4 Diagnoses Olman's angina K12.2 Dental caries K02.9 Trismus R25.2 Swelling of submandibular region R22.0; R22.1
[2021-12-20] MEDS ORDERED: NSS + 20MEQ KCL 20 MEQ/1,000 ML BAG IV SCH (22:30)
[2021-12-20] MEDS: CLINDAMYCIN/D5W 900 MG/50 ML BAG IV SCH (22:30)
[2021-12-20] MEDS ORDERED: HYDROmorphone INJ 1 MG/ML SYRINGE ONE (22:40)
[2021-12-20] MEDS ORDERED: ONDANSETRON INJ 2 MG/ML 2 ML VIAL IV PRN (23:55)
[2021-12-21] MEDS: POTASSIUM CHLORIDE / WTR 10 MEQ/100 ML PLCT IV SCH ×2 (00:29→01:05)
[2021-12-21] MEDS: HYDROmorphone INJ 1 MG/ML SYRINGE IV PRN ×3 (02:06→08:01)
[2021-12-21] MEDS: CLINDAMYCIN/D5W 900 MG/50 ML BAG IV SCH (04:53)
[2021-12-21 06:03] LABS: Basophils # (auto) 0.07 K/uL (0-0.2); Basophils % (auto) 0.4 %; Eosinophils # (auto) 0.03 K/uL (0-0.50); Eosinophils % (auto) 0.2 %; Hematocrit (blood only) 36.1 % (34.1-44.9); Hemoglobin 12.2 g/dl (12.0-16.0); Immature Granulocytes # (auto) 0.06 K/uL (0.00-0.02); Immature Granulocytes % (auto) 0.4 %; Lymphocytes # (auto) 1.84 K/uL (1.2-3.4); Lymphocytes % (auto) 10.9 %; Mean Corpuscular Hemoglobin 31.4 pg (25.0-34.0); Mean Corpuscular Hgb Conc 33.8 g/dL (32.0-36.0); Mean Platelet Volume 8.9 fL (9.4-12.3); Monocytes # (auto) 1.62 K/uL (0.24-0.82); Monocytes % (auto) 9.6 %; Neutrophils # (auto) 13.21 K/uL (1.4-6.5); Neutrophils % (auto) 78.5 %; Platelet Count 274 K/uL (130-400); RDW Coefficient of Variation 12.1 % (11.5-14.5); RDW Standard Deviation 41.1 fL (36.4-46.3); Red Blood Count 3.88 M/uL (3.93-5.22); White Blood Count 16.83 K/ul (4.8-10.8)
[2021-12-21 06:17] LABS: BUN Creatinine Ratio 6.8 (10-20); Calcium 8.4 mg/dl (8.5-10.1); Creatinine Clr Calc Pharmacy 145.5 ml/min; Est GFR (African American) 140.6 ml/min; Est GFR (Non-African American) 121.3 ml/min; Magnesium 1.5 mg/dl (1.7-2.4); Potassium 3.3 mmol/L (3.5-5.1)
--- NOTE | 2021-12-21 07:48 | Anesthesiology Consultation ---
Date of Service December 21, 2021 Assessment & Plan (1) Encounter for pre-operative examination: Chart Review Chart Review: Acceptable Risk for Surgery and Patient NOT seen in Pre Admission Testing Consults Requested none History Surgery Operation Date: 12/21/21 08:20 Proposed Procedures p Right Facial Incision and Drainage - Torsten Dawkins DMD s Extraction Lower Right Molar - Torsten Dawkins DMD Height/Weight Height: 5 ft 4 in Weight: 88.4 kg Allergies Allergy/AdvReac Type Severity Reaction Status Date / Time penicillin V Allergy Unknown RX Verified 12/20/21 16:48 CHILD;HAD AMOXICILLIN W/O PROBLEM Medications Home Medications Medication Instructions Recorded Confirmed Last Taken acetaminophen 500 mg tablet 0 mg PO DIRECTED PRN Pain 12/20/21 12/20/21 Unknown (Tylenol Extra Strength) ferrous sulfate 325 mg (65 mg 325 mg PO 3XWK 12/20/21 12/20/21 Unknown iron) tablet (iron) ibuprofen 200 mg tablet 0 mg PO Q6H PRN Pain 12/20/21 12/20/21 Unknown Active Medications Generic Name Dose Route Start Last Admin Trade Name Rejiq PRN Reason Stop Dose Admin Hydromorphone HCl 1 mg 12/20/21 22:11 12/21/21 04:53 Hydromorphone Inj 1 Mg/Ml Syringe IV 01/03/22 22:10 1 mg Q3H PRN Administration Pain Potassium Chloride/Sodium Chloride 20 meq in 1,000 mls @ 125 mls/hr 12/20/21 22:30 12/20/21 22:35 Normal Saline W/20 Meq Kcl IV 01/19/22 22:29 125 mls/hr .Q8H SHAWN Administration Clindamycin Phosphate 900 mg in 50 mls @ 100 mls/hr 12/20/21 19:54 12/21/21 05:23 Cleocin/D5w IV 12/30/21 19:53 Infused Q8H SHAWN Infusion Ondansetron HCl 4 mg 12/20/21 23:55 12/21/21 00:14 Ondansetron Inj 2 Mg/Ml 2 Ml Vial IV 01/19/22 23:54 4 mg Q6H PRN Administration Nausea And Vomiting Past Medical History Medical History Lung nodule seen on imaging study No pertinent past medical history Past Family History Family History Other Family history non-contributory Past Surgical History Surgical History No history of previous surgery Social History Smoking Status: Current every day smoker tobacco type: cigarettes Do You Dip or Chew Tobacco: No Hx Alcohol Use: Yes Alcohol type: beer, wine and hard liquor alcohol intake frequency: a few times a week substance use type: marijuana Last Used Substance: Days (ago) Physical Exam Vital Signs Last Vital Signs Temp 100.8 F H 12/21/21 03:32 Pulse 94 H 12/21/21 03:32 Resp 18 12/21/21 03:32 BP 122/82 12/21/21 03:32 Pulse Ox 95 12/21/21 03:32 O2 Del Method 12/21/21 03:32 Testing Laboratory Results 12/21/21 05:27 12/21/21 05:27
[2021-12-21] MEDS ORDERED: GLYCOPYRROLATE 0.2 MG/ML VIAL ONE (09:03)
[2021-12-21] MEDS ORDERED: NEOSTIGMINE METHYLSULFATE 1 MG/ML 10ML VIAL ONE (09:03)
[2021-12-21] MEDS ORDERED: MIDAZOLAM HCL 1 MG/ML 2ML VIAL ONE (09:03)
[2021-12-21] MEDS ORDERED: HYDROmorphone INJ 2 MG/ML SYR/VIAL ONE (09:03)
[2021-12-21] MEDS ORDERED: PROPOFOL IV EMULSION 10 MG/ML 20 ML VIAL IV ONE (09:03)
[2021-12-21] MEDS ORDERED: LIDOCAINE 2% MPF LOCAL 5 ML VIAL INFIL ONE (09:03)
[2021-12-21] MEDS ORDERED: ROCURONIUM BROMIDE 10 MG/ML 5 ML VIAL IV ONE (09:03)
[2021-12-21] MEDS ORDERED: ONDANSETRON INJ 2 MG/ML 2 ML VIAL ONE (09:03)
[2021-12-21] MEDS ORDERED: DEXAMETHASONE SOD INJ 4 MG/ML VIAL ONE (09:03)
[2021-12-21] MEDS ORDERED: CHLORHEXIDINE GLUCONATE 0.12% 480 ML ONE (09:14)
[2021-12-21] MEDS ORDERED: BUPIVACAINE/EPINEPHRINE 0.5% 1:200,000 1.8 ML CARP ONE (09:14)
[2021-12-21] MEDS ORDERED: ATROPINE SULFATE 0.1 MG/ML 10ML SYR IV PRN (09:19)
[2021-12-21] MEDS ORDERED: ONDANSETRON INJ 2 MG/ML 2 ML VIAL IV PRN (09:19)
[2021-12-21] MEDS ORDERED: ePHEDrine sulfate 50 MG/ML AMP IV PRN (09:19)
--- NOTE | 2021-12-21 09:22 | History & Physical Bridge Note ---
Date of Service December 21, 2021 History & Physical Bridge Note I have examined the patient, reviewed the History & Physical and in the interval since the performance of the History & Physical I have noted the following changes of clinical significance: no changes noted COVID- neg Localized swelling floor of mouth and submandibular area associated with # 31 tooth For OR today
[2021-12-21] MEDS ORDERED: CHLORHEXIDINE GLUCONATE 0.12% 480 ML MT PRN (10:38)
[2021-12-21] MEDS: fentaNYL citrate 100 MCG/2 ML VIAL IV PRN ×3 (10:59→11:11)
--- NOTE | 2021-12-21 11:18 | Anesthesiology Progress Note ---
Date of Service December 21, 2021 Anesthesia Post Procedure Vital Signs Vital Signs: Temp Pulse Pulse Pulse Resp BP BP 12/21/21 08:45 100.0 F H 106 H 18 128/83 12/20/21 19:54 12/21/21 03:32 100.8 F H 94 H 18 122/82 12/21/21 00:26 87 12/21/21 00:24 103 H 12/20/21 23:27 99.3 F 95 H 18 107/70 12/20/21 21:30 12/20/21 20:47 98.4 F 91 H 18 135/88 12/20/21 19:20 92 H 18 129/94 12/20/21 16:30 80 18 12/20/21 16:30 127/91 12/20/21 16:20 83 19 12/20/21 16:00 81 11 L 12/20/21 15:50 81 12 12/20/21 15:40 75 15 12/20/21 15:36 92 H 27 H 12/20/21 15:20 76 16 12/20/21 15:10 73 17 12/20/21 15:00 88 18 12/20/21 15:00 112/83 12/20/21 14:50 72 11 L 12/20/21 14:40 85 16 12/20/21 14:30 77 17 12/20/21 14:30 128/82 12/20/21 14:23 76 14 12/20/21 14:23 127/78 12/20/21 14:20 85 22 12/20/21 14:14 85 17 12/20/21 13:52 102 H 22 12/20/21 13:40 89 24 12/20/21 13:30 77 15 12/20/21 13:20 21 12/20/21 13:10 23 12/20/21 13:00 80 16 12/20/21 12:57 80 17 12/20/21 12:45 Pulse Ox Pulse Ox O2 Del Method O2 Del Method 12/21/21 08:45 96 Room Air 12/20/21 19:54 95 Room Air 12/21/21 03:32 95 Room Air 12/21/21 00:26 12/21/21 00:24 12/20/21 23:27 96 Room Air 12/20/21 21:30 Room Air 12/20/21 20:47 95 Room Air 12/20/21 19:20 96 Room Air 12/20/21 16:30 12/20/21 16:30 12/20/21 16:20 12/20/21 16:00 12/20/21 15:50 12/20/21 15:40 12/20/21 15:36 12/20/21 15:20 12/20/21 15:10 12/20/21 15:00 12/20/21 15:00 12/20/21 14:50 99 12/20/21 14:40 97 12/20/21 14:30 98 12/20/21 14:30 12/20/21 14:23 99 12/20/21 14:23 12/20/21 14:20 12/20/21 14:14 12/20/21 13:52 12/20/21 13:40 12/20/21 13:30 12/20/21 13:20 12/20/21 13:10 12/20/21 13:00 12/20/21 12:57 12/20/21 12:45 95 Room Air Pain Intensity Right Jaw: Pain Intensity: 5 Transfer of Care Handoff Completed per policy Notes Mental Status: alert / awake / arousable and participated in evaluation Patient Amnestic to Procedure: Yes Nausea / Vomiting: adequately controlled Pain: adequately controlled Airway Patency, RR, SpO2: stable & adequate BP & HR: stable & adequate Hydration State: stable & adequate Anesthetic Complications: no major complications apparent and Pt Satisfied with anesthetic care
--- NOTE | 2021-12-21 11:43 | Electrocardiogram Report ---
Test Reason : Blood Pressure : / mmHG Vent. Rate : 083 BPM Atrial Rate : 083 BPM P-R Int : 128 ms QRS Dur : 088 ms QT Int : 372 ms P-R-T Axes : 061 044 049 degrees QTc Int : 437 ms Normal sinus rhythm with sinus arrhythmia Normal ECG When compared with ECG of 29-SEP-2021 11:19, Vent. rate has decreased BY [address] no longer depressed in Inferior leads T wave inversion no longer evident in Anterior leads Confirmed by Christopher Marin ([id number]) on 12/21/2021 11:43:05 AM Referred By: REFERRED SELF Confirmed By:Homar Marin
--- NOTE | 2021-12-21 13:18 | Discharge Summary ---
Date of Service December 21, 2021 Admission HPI Per Admitting Provider Yancy Ramesh is a 31-year-old previously healthy female who presents today with right lower jaw pain. Patient has had a cracked tooth on her right side for 1-2 years now that she has known about, however over the past 2 days she developed some redness on the right side of her jaw, and beginning yesterday this rapidly turned into severe swelling, severe pain, and is associated with fevers at home. She does not have SOB or difficulty with secretions, however the swelling and pain has made it very difficult for her to eat, drink, and speak. In ED, her vital signs are within normal limits and stable. Labs are s ignificant for elevated WBC at 13.30, potassium 10.0. test negative. CT of the soft tissues of the neck showed a large periapical lucency involving most posterior right mandibular molar associated cortical breakthrough and a 1.0 cm periodontal abscess deep to the mandible as well as inflammation involving large portion of the right sublingual space, mouth floor, and anterior phraynx and parapharyngeal soft tissue. Associated superficial cellulitis of the right anterior neck with reactive cervical lymphadenopathy noted. Principal Diagnosis Olman's angina Discharge Exam Heart regular rate and rhythm, Oral cavity erythema Vital Signs Temp Pulse Pulse Pulse Resp BP BP 12/21/21 12:00 36.7 C 96 H 18 100/70 12/21/21 11:20 37.1 C 92 H 16 96/69 L 12/21/21 11:10 78 13 104/70 12/21/21 11:00 94 H 18 103/68 12/21/21 10:52 36.7 C 103 H 16 118/79 12/21/21 08:45 37.8 C H 106 H 18 128/83 12/20/21 19:54 12/21/21 03:32 38.2 C H 94 H 18 122/82 12/21/21 00:26 87 12/21/21 00:24 103 H 12/20/21 23:27 37.4 C 95 H 18 107/70 12/20/21 21:30 12/20/21 20:47 36.9 C 91 H 18 135/88 12/20/21 19:20 92 H 18 129/94 12/20/21 16:30 80 18 12/20/21 16:30 127/91 12/20/21 16:20 83 19 12/20/21 16:00 81 11 L 12/20/21 15:50 81 12 12/20/21 15:40 75 15 12/20/21 15:36 92 H 27 H 12/20/21 15:20 76 16 12/20/21 15:10 73 17 12/20/21 15:00 88 18 12/20/21 15:00 112/83 12/20/21 14:50 72 11 L 12/20/21 14:40 85 16 12/20/21 14:30 77 17 12/20/21 14:30 128/82 12/20/21 14:23 76 14 12/20/21 14:23 127/78 12/20/21 14:20 85 22 12/20/21 14:14 85 17 12/20/21 13:52 102 H 22 12/20/21 13:40 89 24 12/20/21 13:30 77 15 12/20/21 13:20 21 Pulse Ox Pulse Ox O2 Del Method O2 Del Method O2 Flow Rate 12/21/21 12:00 93 Room Air 12/21/21 11:20 95 Nasal Cannula 2 12/21/21 11:10 95 Nasal Cannula 2 12/21/21 11:00 93 Nasal Cannula 2 12/21/21 10:52 98 Nasal Cannula 2 12/21/21 08:45 96 Room Air 12/20/21 19:54 95 Room Air 12/21/21 03:32 95 Room Air 12/21/21 00:26 12/21/21 00:24 12/20/21 23:27 96 Room Air 12/20/21 21:30 Room Air 12/20/21 20:47 95 Room Air 12/20/21 19:20 96 Room Air 12/20/21 16:30 12/20/21 16:30 12/20/21 16:20 12/20/21 16:00 12/20/21 15:50 12/20/21 15:40 12/20/21 15:36 12/20/21 15:20 12/20/21 15:10 12/20/21 15:00 12/20/21 15:00 12/20/21 14:50 99 12/20/21 14:40 97 12/20/21 14:30 98 12/20/21 14:30 12/20/21 14:23 99 12/20/21 14:23 12/20/21 14:20 12/20/21 14:14 12/20/21 13:52 12/20/21 13:40 12/20/21 13:30 12/20/21 13:20 Intake and Output 12/20/21 12/21/21 12/21/21 22:59 06:59 14:59 Intake Total 700 / 2160 410 / 2160 1100 / 1100 Output Total 4 / 4 Balance 700 / 2160 410 / 2160 1096 / 1096 Intake: IV 410 / 1460 Clindamycin/D5w 900 mg In 50 ml 100 / 100 @ 100 mls/hr IV Q8H SH[facility]N Rx#: [id number] Potassium Chloride / Wtr 10 meq 160 / 160 In 100 ml @ 100 mls/hr IV Q1H SHAWN Rx#:[id number] levoFLOXacin/D5W 750 mg In 150 150 / 150 ml @ 100 mls/hr IV NOW STA Rx#: [id number] IV Perioperative 1100 / 1100 Oral 700 / 700 0 / 700 Output: Estimated Blood Loss 4 / Other: # Unmeasured Voids 2 3 Weight 86.3 kg 88.4 kg 88.4 kg Weight Measurement Method [facility] in [facility] Patient Weight 12/22/21 06:59 Weight 88.4 kg Discharge Data Allergies Allergy/AdvReac Type Severity Reaction Status Date / Time penicillin V Allergy Unknown RX Verified 12/20/21 16:48 CHILD;HAD AMOXICILLIN W/O PROBLEM Consultations 12/20/21 15:13 ED Decision to Admit Stat 12/20/21 19:54 Consult Oromaxillofacial Surgery Routine Procedures Performed Operation Date: 12/21/21 08:20 Actual Procedures p Right Facial Incision and Drainage(Right) - Torsten Dawkins DMD s Extraction Lower Right Molar(Right) - Torsten Dawkins DMD Ordered Studies 12/20/21 12:06 CT soft tissue neck w con Stat Hospital Course (1) Olman's angina: Underwent surgical intervention, surgical note pending; immediately after arriving to floor she wanted to go; recommended against but she went AMA; explained risk for , worsening infection, difficulty swallowing and breathing but she still went; based on communication with oral surgery who agreed discharge would not be advisable in her best interest I sent a pr escription of clindamycin (2) Hypokalemia: - 3.0, in setting of poor PO intake. - Will replace in IVF, recheck with AM labs. She went AMA before other intervention (3) Lung nodule seen on imaging study: 6mm ground glass nodule again seen in left apex when compared to CT neck she had in 09/2021 Needs outpt follow up and CT Chest as outpt with PCP She went AMA, should have outpatient follow-up Total Time Total Time Spent Total Time Spent (In Minutes): 32 Discharge Plan Discharge Items Patient Disposition: Against Medical Advice Reason For Visit: PERIDONTAL ABSCESS Condition on Discharge: Good Activity: Resume your previous activity Lifting: Gradually increase as tolerated Bathing: No limitations Weightbearing: Full weightbearing Non-emergency contact: Surgeon Follow-up/Referrals: PCP,NO [Primary Care Provider] - Diet Texture: Dental soft (bite-sized) Diet Comment: advance diet as tolerated --dental soft Pending Studies at Discharge: Yes Stand-Alone Forms: My [place], Smoking Cessation Medications and DC Order Prescriptions: New clindamycin HCl 300 mg capsule 300 mg PO Q8H 10 Days Qty: 30 0RF No Action acetaminophen [Tylenol Extra Strength] 500 mg Tablet 0 mg PO DIRECTED PRN (Reason: Pain) Rx Instructions: PER PT " MANY POSSIBLE WITHOUT OVERDOSING". ferrous sulfate [iron] 325 mg (65 mg iron) Tablet 325 mg PO 3XWK Rx Instructions: PER PT "USUALLY 2-3 X WK". ibuprofen 200 mg Tablet 0 mg PO Q6H PRN (Reason: Pain) Rx Instructions: PER PT " MANY POSSIBLE WITHOUT OVERDOSING". Discharge Orders: Left Against Medical Advice (Routine); Ordered 12/21/21 Ordered By: Karthik De La Cruz Admission Data Admit Date/Time: 12/20/21 16:13 Attending Provider: Karthik De La Cruz Admit Provider: Oneida Damon Primary Care Provider: PCP,NO Other Providers: Oneida Damon ; Torsten Dawkins Coding Level of Care Code D/C DAY MANAGEMENT >30 MINS Diagnoses Olman's angina K12.2 Hypokalemia E87.6 Lung nodule seen on imaging study R91.1
[2021-12-21] MEDS ORDERED: levoFLOXacin/D5W 750 MG/150 ML BAG IV SCH (20:00)
--- NOTE | 2021-12-23 21:50 | Operative Report ---
PG Post Operative Report Pre & Post Diagnosis Operation Date: 12/21/21 08:20 Pre-Op Diagnosis: Peridontal Abscess Post-Op Diagnosis: Peridontal Abscess I identified the patient and participated in the time-out.: Yes Procedure Operation Date: 12/21/21 08:20 Actual Procedures p Right Facial Incision and Drainage(Right) - Torsten Dawkins DMD s Extraction Lower Right Molar(Right) - Torsten Dawkins DMD Surgeon Torsten Dawkins DMD Cable Strander none Estimated Blood Loss 4 Findings Consistent with Post-Op Diagnosis acute facial abscessed Specimens I&D Drains 1/4 [place] Anesthesia Type General Complications none Indications acute facial infection Description of Procedure K12.2 CPT 61077 [id number] Actual Procedures p Incision and Drainage Submandibular Abscess; Removal of Tooth #31(Not Applicable) - Torsten Dawkins DMD Once cleared for surgery general anesthesia was achieved, the eyes were protected by the anesthesia dept criteria. A time out was take for patient ID, antibiotics, equipment and position verification once all agreed the procedure began. Local anesthesia using Marcaine with a vasoconstrictor ( 1.8 ml per site) given into right inferior alveolar nerve A throat pack was placed after the oral cavity was irrigated with saline. Once a surgical level of anesthesia was obtained and the local anesthesia was given time for the blocks the surgery was started. I turned my attention to the infection which was located in the floor of the mouth and submental area. The tongue was elevated and there was also swelling associated with tooth # 31 ( see CT scan report) Incision and Drainage Using a 15 blade an incision was made medial to the alveolar ridge and lateral to the duct of the submandibular gland. Once the incision was made a lot of pus extruded from the site. This drainage was cultured for anaerobic and aerobic bacteria. A curved hemostat was carefully placed into the infected space along the medial side of the lower jaw and into the submental amd submandibular spaces. I redirect the hemostat and drained the collection systems administrator space. Some further drainage was now allowed to escape. I palpated the chin and submental area and no further drainage was expressed. The area was irrigated with at least 100 ml of NS solution. I now turned my attention to remove the # 31 tooth with associated cyst Lower # 31 The full thick Muco-periosteal flap was made on the facial aspect from retromolar pad anterior to # 28. The flap was reflected to expose the the subperiosteal space the bone adjacent to # 31. The rongeur was used to remove bone, the tooth was removed with a 301 elevator, the mental nerve was intact, there was a large amount of granulation tissue on the apex and some more pus that was expressed. Drain placement I 1/4 inch Jessica drain was placed deep into the floor of the mouth and sutured in place with a 2-0 chromic suture. I inspected the sites to insure all bleeding was controlled. I removed the throat pack and suctioned the throat. Bilateral gauze pressure dressings were placed. All instrument and sponge count was correct. the patient was allowed to awake from the anesthesia. Once full awake the anesthesia tube was removed and the patient was taken to the recovery room with all vital sign stable. The patient tolerated the surgery very well. I will follow the patient in my office, Rx and instructions will be given upon discharge. I attest to the content of the Intraoperative Record and any orders documented therein. Any exceptions are noted below.
== END 2021-12-21 13:00 | disposition left against medical advice (07) | DRG 138 ==
LOC: ED 11:04 → SUATTDRO 16:13 → EDINP 16:13 → 2S 19:53

== ENCOUNTER 2024-09-26 07:31 | Inpatient (IN) ==
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
--- OUTSIDE RECORDS SUMMARY | 2024-09-26 07:43 | External Medical Summary | Summary of Care ---
Author Name Unknown Organization [facility] Address [address] [place] [address] Phone [phone] Care Team Providers Care Charging Machine Operator Name Role Phone Tenisha Gardner DO Primary Care Provider Encounter Details Date Type Department Care Team (Late st Contact Info) Description 09/13/2024 Telephone [facility] Gynecology and Obstetrics [address] [place] [address] Mary Genao MD [address] [place] [address] Allergies Active Allergy Reactions Criticality Noted Date Comments Dust Mite Extract 02/08/2008 Penicillins 02/25/2010 documented as of this encounter (statuses as of 09/16/2024) Medications Acetaminophen 325 MG Oral Tablet (Tylenol) Take 1 Tablet by mouth every 6 hours as needed. Active Adult Gummy/DHA/FA 0.4-25 MG Oral Tablet Chewable Take by mouth. Active hydrOXYzine Pamoate 25 MG Oral Capsule 1-2 TABLETS 30- 60 MIN BEFORE BED 30 Capsule 07/10/2024 Active Magnesium 400 MG Oral Tablet Take by mouth. Active valACYclovir HCl 500 MG Oral Tablet (Valtrex) Take 1 Tablet by mouth in the morning and 1 Tablet before bedtime. until gone.. 40 Tablet 3 09/13/2024 Active Hospital, Clinic, or Other Facility Administered Medication Ordered Dose Route Frequency Start Date End Date Status Albuterol Sulfate (Proventil) (2.5 MG/3ML) 0.083% inhalation solution 2.5 mgIndications:Tobacco abuse 2.5 mg NEBULIZER ONCE PRN 12/19/2023 12/18/2024 Active documented as of this encounter (statuses as of 09/16/2024) Active Problems Problem Noted Date Diagnosed Date [...] resolved Need for food assistance referred to [facility] and local food [place] 02/20/2024 [...] as of this encounter (statuses as of 09/16/2024) Resolved Problems Problem Noted Date Diagnosed Date Resolved Date Food insecurity 01/01/2024 05/06/2024 Overview: Per [facility] Protocol Encounter for supervision of other normal 09/26/2008 10/17/2008 Overview (09/22/2015): ICD-10 update of inactive term MA pending 03/18/2008 02/25/2010 Overview (08/01/2008): Enroll once active - enrolled documented as of this encounter (statuses as of 09/16/2024) Immunizations Name Administration Dates Next Due Hepatitis [...] money to get more. Never true 04/24/2024 [place] Depression Scale Answer Date Recorded [place] Depression Scale Total 7 08/07/2024 The thought [...] encounter Miscellaneous Notes * Telephone Encounter - Mary Genao MD - 09/13/2024 9:36 PM EDT I prescribed valtrex PO 500 mg PO x 7 days documented in this encounter Plan of Treatment Upcoming Encounters Date Type Department Care Team (Late st Contact Info) Description 09/18/2024 9:30 AM EDT Office Visit Gynecology/Obstetrics [facility] [address] [place] [address] Shantel Bowman CRNP [address] [place] [address] Nurse Alfred Healthy Beginnings Return [facility] [address] [place] [address] 10/22/2024 11:40 AM EDT Office Visit Dermatology [facility] [address] [facility] [address] Alba Juan [facility]C [address] [facility] [address] 12/19/2024 10:00 AM EDT Office Visit Family Practice [facility] [address] [place] [address] Tenisha Gardner DO [address] [place] [address] Health Maintenance Due Date Last Done Comments [...] Author Reminders Care Plan OB Reminders No Mychart, Provider documented as of this encounter Medical Devices Not on filedocumented as of this encounter Additional Health Concerns Active Problems Noted Date Diagnosed Date OB Reminders 02/20/2024 documented as of this encounter Care Teams Charging Machine Operator Relationship Specialty Start Date End Date Tenisha Gardner DO [address] [place] [address] PCP - General Family Medicine 12/19/23 documented as of this encounter
--- OUTSIDE RECORDS SUMMARY | 2024-09-26 07:43 | External Medical Summary | Summary of Care ---
Author Name Unknown Organization [facility] Address [address] [place] [address] Phone [phone] Care Team Providers Care Sales Manager Prearranged Funerals Name Role Phone Tenisha Gardner DO Primary Care Provider [phone] Reason for Visit * Reason Comments Return Visit Encounter Details Date Type Department Care Team (Late st Contact Info) Description 09/11/2024 9:00 AM EDT Office Visit Gynecology/Obstetri ender Simon [address] [place] [address] Javad Crowder MD [address] [address] Nurse Alfred [facility] Beginning Return Annika [address] [place] [address] Class 1 obesity due to excess calories with serious comorbidity in adult, unspecified BMI*; Supervision of other normal , antepartum Allergies Active Allergy Reactions Criticality Noted Date Comments Dust Mite Extract 02/08/2008 Penicillins 02/25/2010 documented as of this encounter (statuses as of 09/20/2024) Medications Acetaminophen 325 MG Oral Tablet (Tylenol) [...] as of this encounter (statuses as of 09/20/2024) Active Problems Problem Noted Date Diagnosed Date [...] resolved Need for food assistance referred to [facility] and local food [employer] 02/20/2024 Laurie Chaudhari RN 02/20/2024 Problem Action [...] as of this encounter (statuses as of 09/20/2024) Resolved Problems Problem Noted Date Diagnosed Date Resolved Date Food insecurity 01/01/2024 05/06/2024 Overview: Per [facility] Protocol Encounter for supervision of other normal 09/26/2008 10/17/2008 Overview (09/22/2015): ICD-10 update of inactive term MA pending 03/18/2008 02/25/2010 Overview (08/01/2008): Enroll once active - enrolled documented as of this encounter (statuses as of 09/20/2024) Immunizations Name Administration Dates Next Due Hepatitis [...] money to get more. Never true 04/24/2024 [place] Depression Scale Answer Date Recorded [place] Depression Scale Total 7 08/07/2024 The thought [...] AM EDT documented as of this encounter Last Filed Vital Signs Vital Sign Reading Time Taken Comments Blood Pressure 114/68 09/11/2024 9:04 AM EDT Pulse - - Temperature - - Respiratory Rate - - Oxygen Saturation - - Inhaled Oxygen Concentration - - Weight 106.1 kg (234 lb) 09/11/2024 9:04 AM EDT Height 160 cm (5' 3") 09/11/2024 9:04 AM EDT Body Mass Index 41.45 09/11/2024 9:04 AM EDT documented in this encounter Progress Notes * Javad Crowder MD - 09/11/2024 9:22 AM EDT Pt doing well No complaints VE; FT/50/post * Fauzia Benjamin LPN - 09/11/2024 9:04 AM EDT [id number] Would like cervix check Would like IOL documented in this encounter Nursing Notes * Hali Smith, GABBY - 09/11/2024 9:12 AM EDT Chief Complaint Patient presents with Return Visit Patient seen by [facility] Heater Mechanic. Patient denies any questions or concerns. have you cut down with your smoking No have you quit Yes have you seen a collections officer No have you seen a psychosocial rehabilitation counselor No are you receiving counseling No have you received dental care during your No are you enrolled in [facility] Not yet do you receive food stamps or [place] assistance Food stamps Hali Smith RN documented in this encounter Plan of Treatment Upcoming Encounters Date Type Department Care Team (Late st Contact Info) Description 10/09/2024 8:00 AM EDT Office Visit Gynecology/Obstetrics [facility] [address] [place] [address] Roosevelt Cummins MD [address] [place] [id number] 10/22/2024 11:40 AM EDT Office Visit Dermatology [facility] [address] [place] [address] Alba Juan PA-C [address] [facility] [place] [address] 12/19/2024 10:00 AM EDT Office Visit Family Practice [facility] [address] [place] [address] Tenisha Gardner DO [address] [place] [address] Health Maintenance Due Date Last Done Comments [...] Not on filedocumented as of this encounter Visit Diagnoses Diagnosis Encounter for supervision of other normal in second trimester- Primary related hip pain in second trimester, antepartum Supervision of other normal , antepartum- Primary Class 1 obesity due to excess calories in adult, unspecified BMI, unspecified whether serious comorbidity present Class 1 obesity due to excess calories with serious comorbidity in adult, unspecified BMI- Primary Supervision of other normal , antepartum documented in this encounter Additional Health Concerns Active Problems Noted Date Diagnosed Date OB Reminders 02/20/2024 documented as of this encounter Care Teams Sales Manager Prearranged Funerals Relationship Specialty Start Date End Date Tenisha Gardner DO [address] [place] [address] PCP - General Family Medicine 12/19/23 documented as of this encounter
--- OUTSIDE RECORDS SUMMARY | 2024-09-26 07:43 | External Medical Summary | Summary of Care ---
Author Name Unknown Organization [facility] Address [address] [place] [address] Phone [phone] Care Team Providers Care Collateral Clerk Name Role Phone Tenisha Gardner DO Primary Care Provider [phone] Reason for Visit * Reason Comments Return Visit Encounter Details Date Type Department Care Team (Late st Contact Info) Description 09/18/2024 9:30 AM EDT Office Visit Gynecology/Obstetri ender Simon [address] [facility] [place] [address] Shantel Bowman CRNP [address] [place] [address] Nurse Zaki Simon Beginnings Return Annika [address] [facility] [place] [address] Supervision of other normal , antepartum*; Class 1 obesity due to excess calories with serious comorbidity in adult, unspecified BMI Allergies Active Allergy Reactions Criticality Noted Date Comments Dust Mite Extract 02/08/2008 Penicillins 02/25/2010 documented as of this encounter (statuses as of 09/18/2024) Medications Acetaminophen 325 MG Oral Tablet (Tylenol) [...] as of this encounter (statuses as of 09/18/2024) Active Problems Problem Noted Date Diagnosed Date [...] resolved Need for food assistance referred to [facility] and local food [email or web address] 02/20/2024 Laurie Chaudhari RN 02/20/2024 Problem Action [...] as of this encounter (statuses as of 09/18/2024) Resolved Problems Problem Noted Date Diagnosed Date Resolved Date Food insecurity 01/01/2024 05/06/2024 Overview: Per [facility] Protocol Encounter for supervision of other normal 09/26/2008 10/17/2008 Overview (09/22/2015): ICD-10 update of inactive term MA pending 03/18/2008 02/25/2010 Overview (08/01/2008): Enroll once active - enrolled documented as of this encounter (statuses as of 09/18/2024) Immunizations Name Administration Dates Next Due Hepatitis [...] money to get more. Never true 04/24/2024 [place] Depression Scale Answer Date Recorded [place] Depression Scale Total 7 08/07/2024 The thought [...] Sign Reading Time Taken Comments Blood Pressure 110/66 09/18/2024 9:42 AM EDT Pulse - - Temperature - - Respiratory Rate - - Oxygen Saturation - - Inhaled Oxygen Concentration - - Weight 104.9 kg (231 lb 3.2 oz) 09/18/2024 9:42 AM EDT Height - - Body Mass Index 40.96 09/11/2024 9:04 AM EDT documented in this encounter Progress Notes * Shantel Bowman CRNP - 09/18/2024 10:03 AM EDT 39w3d Feeling miserable. Has IOL scheduled for 09/26 but was hoping it could be sooner. Nothing sooner available at this time. She is interested in having salpingectomy PREST[place], has none of this scheduled yet. Encouraged to schedule at checkout today. Baby is active. Denies bleeding or LOF. Having irregular contractions. Requesting cervical check. Resin Remover Documentation Provider requested principal clerk typist. Name of principal clerk typist: VALORIE Chairez * Sunshine Gilliam CMA - 09/18/2024 9:42 AM EDT 39w3d + contractions, unsure if alecia tracey. Not timeable Loss of mucus plug. Requesting cervical check and membrane sweep if able. documented in this encounter Nursing Notes * Laurie Chaudhari RN - 09/18/2024 9:49 AM EDT Patient declined seeing the HB coordinator today. Laurie Chaudhari RN documented in this encounter Plan of Treatment Upcoming Encounters Date Type Department Care Team (Late st Contact Info) Description 10/09/2024 8:00 AM EDT Office Visit Gynecology/Obstetrics [facility] [address] [place] [address] Roosevelt Cummins MD [address] [place] [phone] 10/22/2024 11:40 AM EDT Office Visit Dermatology [facility] [address] [place] [address] Alba Juan PA-C [address] [place] [address] 12/19/2024 10:00 AM EDT Office Visit Family Practice [facility] [address] [place] [address] Tenisha Gardner DO [address] [place] [address] Health Maintenance Due Date Last Done Comments [...] unspecified BMI, unspecified whether serious comorbidity present Supervision of other normal , antepartum- Primary Class 1 obesity due to excess calories with serious comorbidity in adult, unspecified BMI documented in this encounter Additional Health Concerns Active Problems Noted Date Diagnosed Date OB Reminders 02/20/2024 documented as of this encounter Care Teams Collateral Clerk Relationship Specialty Start Date End Date Tenisha Gardner DO [address] [place] [address] PCP - General Family Medicine 12/19/23 documented as of this encounter
--- OUTSIDE RECORDS SUMMARY | 2024-09-26 07:43 | External Medical Summary | Summary of Care ---
Author Name Unknown Organization [facility] Address [address] [place] [address] Phone [phone] Care Team Providers Care Technician Semiconductor Development Name Role Phone Tenisha Gardner DO Primary Care Provider +[phone] Reason for Visit * Reason Comments Return Visit Encounter Details Date Type Department Care Team (Late st Contact Info) Description 09/11/2024 9:00 AM EDT Office Visit Gynecology/Obstetri ender Siomn [address] [place] [address] Javad Crowder MD [address] [facility] [address] Nurse Alfred [facility] Beginning Return Annika [address] [facility] [place] [address] Class 1 obesity due to excess calories [...] resolved Need for food assistance referred to [facility] and local food [facility] 02/20/2024 Laurie Chaudhari RN 02/20/2024 Problem Action [...] money to get more. Never true 04/24/2024 [place] Depression Scale Answer Date Recorded [place] Depression Scale Total 7 08/07/2024 The thought [...] presents with Return Visit Patient [facility] by [facility]. Patient denies any questions or concerns. have you cut down with your smoking No have you quit Yes have you seen a food tray assembler No have you seen a secondary social studies teacher No are you receiving counseling No have you received dental care during your No are you enrolled in [facility] Not yet do you receive food stamps or [place] assistance Food stamps Hali Smith RN documented in this encounter Plan of Treatment Upcoming Encounters Date Type Department Care Team (Late st Contact Info) Description 09/18/2024 9:30 AM EDT Office Visit Gynecology/Obstetrics [facility] [address] [place] [address] Shantel Bowman CRNP [address] [place] [address] Nurse Alfred Healthy Beginnings Return [facility] [address] [place] [address] 12/19/2024 10:00 AM EDT Office Visit Family Practice [facility] [address] [place] [address] Tenisha Gardner DO [address] [place] [address] Health Maintenance Due Date Last Done Comments [...] documented as of this encounter Care Teams Technician Semiconductor Development Relationship Specialty Start Date End Date Tenisha Gardner DO [address] [place] [address] PCP - General Family Medicine 12/19/23 documented as of this encounter
--- OUTSIDE RECORDS SUMMARY | 2024-09-26 07:43 | External Medical Summary | Summary of Care ---
Author Name Unknown Organization [facility] Address [address] [place] [address] Phone [phone] Care Team Providers Care Nursing Program Manager Name Role Phone Tenisha Gardner DO Primary Care Provider [phone] Reason for Visit * Reason Comments Return Visit Encounter Details Date Type Department Care Team (Late st Contact Info) Description 09/11/2024 9:00 AM EDT Office Visit Gynecology/Obstetri ender Simon [address] [place] [address] Javad Crowder MD [address] [facility] [address] Nurse Alfred [facility] Beginning Return Annika [address] [facility] [place] [address] Class 1 obesity due to excess calories [...] resolved Need for food assistance referred to [facility] and local food [employer] 02/20/2024 Laurie Chaudhari RN 02/20/2024 Problem Action [...] money to get more. Never true 04/24/2024 [place] Depression Scale Answer Date Recorded [place] Depression Scale Total 7 08/07/2024 The thought [...] with Return Visit Patient seen by [facility] International Trade Analyst. Patient denies any questions or concerns. have you cut down with your smoking No have you quit Yes have you seen a log data technician No have you seen a social services technician No are you receiving counseling No have you received dental care during your No are you enrolled in [facility] Not yet do you receive food stamps or [place] assistance Food stamps Hali Smith RN documented in this encounter Plan of Treatment Upcoming Encounters Date Type Department Care Team (Late st Contact Info) Description 10/09/2024 8:00 AM EDT Office Visit Gynecology/Obstetrics [facility] [address] [place] [address] Roosevelt Cummins MD [address] [place] [phone] 10/22/2024 11:40 AM EDT Office Visit Dermatology [facility] [address] [place] [address] Alba Juan PA-C [address] [facility] [place] [address] 12/19/2024 10:00 AM EDT Office Visit Family Practice [facility] [address] [place] [address] Tenisha Gardner DO [address] [place] [address] Health Maintenance Due Date Last Done Comments [...] documented as of this encounter Care Teams Nursing Program Manager Relationship Specialty Start Date End Date Tenisha Gardner DO [address] [place] [address] PCP - General Family Medicine 12/19/23 documented as of this encounter
--- OUTSIDE RECORDS SUMMARY | 2024-09-26 07:44 | External Medical Summary | Summary of Care ---
Author Name Unknown Organization [facility] Address [address] [place] [address] Phone [phone] Care Team Providers Care Lens Inserter Name Role Phone Tenisha Gardner DO Primary Care Provider [phone] Reason for Visit * Reason Comments Healthy Beginnings Return 37w3d Encounter Details Date Type Department Care Team (Late st Contact Info) Description 09/04/2024 11:15 AM EDT Office Visit Gynecology/Obstetri ender Simon [address] [facility] [place] [address] Julieth Leon, [facility] [address] [place] [address] Nurse Alfred Healthy Beginnings Return Annika [address] [place] [address] Supervision of other normal , antepartum*; Class 1 obesity without serious comorbidity in adult, unspecified BMI, unspecified obesity type Allergies Active Allergy Reactions Criticality Noted Date Comments Dust Mite Extract 02/08/2008 Penicillins 02/25/2010 documented as of this encounter (statuses as of 09/04/2024) Medications Acetaminophen 325 MG Oral Tablet (Tylenol) [...] as of this encounter (statuses as of 09/04/2024) Active Problems Problem Noted Date Diagnosed Date GIANNA (generalized anxiety disorder) 08/14/2024 Psychophysiologic insomnia 08/14/2024 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 07/10/2024 Supervision of other normal , antepartu m 04/15/2024 Class 1 obesity due to excess calories in adult 03/19/2024 Obesity in , antepartum 02/20/2024 Health counseling 02/20/2024 Overview (08/28/2024): Problem Action Taken Date entered Entered by Date resolved Need for food assistance referred to [facility] and local food [place] 02/20/2024 Laurie Chaudhari [...] or questions 08/28/2024 Laurie Chaudhari RN 08/28/2024 Assessment & Plan (07/22/2024 12:04 PM EST): [...] as of this encounter (statuses as of 09/04/2024) Resolved Problems Problem Noted Date Diagnosed Date Resolved Date Food insecurity 01/01/2024 05/06/2024 Overview: Per [facility] Protocol Encounter for supervision of other normal 09/26/2008 10/17/2008 Overview (09/22/2015): ICD-10 update of inactive term MA pending 03/18/2008 02/25/2010 Overview (08/01/2008): Enroll once active - enrolled documented as of this encounter (statuses as of 09/04/2024) Immunizations Name Administration Dates Next Due Hepatitis [...] money to get more. Never true 04/24/2024 [place] Depression Scale Answer Date Recorded [place] Depression Scale Total 7 08/07/2024 The thought [...] Sign Reading Time Taken Comments Blood Pressure 118/68 09/04/2024 11:30 AM EDT Pulse - - Temperature - - Respiratory Rate - - Oxygen Saturation - - Inhaled Oxygen Concentration - - Weight 106.1 kg (234 lb) 09/04/2024 11:30 AM EDT Height - - Body Mass Index 41.45 08/28/2024 9:06 AM EDT documented in this encounter Progress Notes * Julieth Leon CNM - 09/04/2024 11:24 AM EDT Yancy Ramesh is a 34 year old female here for her routine OB appointment at 37w3d Her Estimated Date of Delivery: 09/22/24 REVIEW OF SYSTEMS: She affirms movement. Denies vaginal bleeding, LOF, contractions, N/V, headaches GBS negative PHYSICAL EXAM: Filed Vitals: 09/04/24 1130 BP: 118/68 Weight: 106.1 kg (234 lb) ASSESSMENT/PLAN: Supervision of other normal , antepartum (Primary) Class 1 obesity due to excess calories in adult Supervision of - labor precautions and kick counts reviewed - RTO in 1 week Julieth Leon CNM documented in this encounter Nursing Notes * Yessenia Christiansen CMA - 09/04/2024 11:26 AM EDT Chief Complaint Patient presents with Healthy Beginnings Return 37w3d Pt reports alecia tracey. Have been ongoing for about a month. Over last week seems to have gotten more frequent +FM documented in this encounter Plan of Treatment Upcoming Encounters Date Type Department Care Team (Late st Contact Info) Description 09/11/2024 7:40 AM EDT Telemedicine [facility] [address] [place] [address] Shantell Reilly CRNP [address] [place] [address] 09/11/2024 9:00 AM EDT Office Visit Gynecology/Obstetrics [facility] [address] [place] [address] Javad Crowder MD [address] [place] [address] Nurse [facility] [address] [place] [address] 09/18/2024 9:30 AM EDT Office Visit Gynecology/Obstetrics [facility] [address] [place] [address] Shantel Bowman CRNP [address] [place] [address] Nurse Alfred [facility] [address] [place] [address] 12/19/2024 10:00 AM EDT Office Visit [facility] [address] [place] [address] Tenisha Gardner DO [address] [place] [address] Health Maintenance Due Date Last Done Comments Depression Monitoring 2001 Pneumococcal Vaccine: Pediatrics (0 to 5 Years) and At-Risk Patients (6 to 18 Years and 19+ Years) (1 of 2 - PCV) 2008 Hepatitis B Vaccine (2 of 3 - 19+ 3-dose series) 09/01/2016 08/04/2016 COVID-19 Vaccine (2 - 202-2 5 season) 2024 12/27/2020 Diabetes Screening 12/18/2026 [...] normal , antepartum- Primary Class 1 obesity without serious comorbidity in adult, unspecified BMI, unspecified obesity type documented in this encounter Additional Health Concerns Active Problems Noted Date Diagnosed Date OB Reminders 02/20/2024 documented as of this encounter Care Teams Lens Inserter Relationship Specialty Start Date End Date Tenisha Gardner DO [address] [place] [address] PCP - General Family Medicine 12/19/23 documented as of this encounter
--- OUTSIDE RECORDS SUMMARY | 2024-09-26 07:44 | External Medical Summary | Summary of Care ---
Author Name Unknown Organization [facility] Address [address] [place] [address] Phone [phone] Care Team Providers Care Face Painter Name Role Phone Tenisha Gardner DO Primary Care Provider Reason for Visit * Reason Onset Date Comments Follow Up 08/15/2024 Encounter Details Date Type Department Care Team (Late st Contact Info) Description 08/15/2024 Telephone Family Practice [facility] [address] [place] [address] Tenisha Gardner DO [address] [place] [address] Follow Up Allergies Active Allergy Reactions Criticality Noted Date Comments Dust Mite Extract 02/08/2008 Penicillins 02/25/2010 documented as of this encounter (statuses as of 08/15/2024) Medications Acetaminophen 325 MG Oral Tablet (Tylenol) [...] as of this encounter (statuses as of 08/15/2024) Active Problems Problem Noted Date Diagnosed Date GIANNA (generalized anxiety disorder) 08/14/2024 Psychophysiologic insomnia 08/14/2024 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 07/10/2024 Supervision of other normal , antepartu m 04/15/2024 Class 1 obesity due to excess calories in adult 03/19/2024 Obesity in , antepartum 02/20/2024 Health counseling 02/20/2024 Overview (08/07/2024): Problem Action Taken Date entered Entered by Date resolved Need for food assistance referred to [facility] and local [employer] 02/20/2024 Laurie Chaudhari RN 02/20/2024 Problem Action [...] or questions 08/07/2024 Laurie Chaudhari RN 08/07/2024 Assessment & Plan (07/22/2024 12:04 PM EST): [...] as of this encounter (statuses as of 08/15/2024) Resolved Problems Problem Noted Date Diagnosed Date Resolved Date Food insecurity 01/01/2024 05/06/2024 Overview: Per [facility] Protocol Encounter for supervision of other normal 09/26/2008 10/17/2008 Overview (09/22/2015): ICD-10 update of inactive term MA pending 03/18/2008 02/25/2010 Overview (08/01/2008): Enroll once active - enrolled documented as of this encounter (statuses as of 08/15/2024) Immunizations Name Administration Dates Next Due Hepatitis [...] money to get more. Never true 04/24/2024 [place] Depression Scale Answer Date Recorded [place] Depression Scale Total 7 08/07/2024 The thought [...] encounter Miscellaneous Notes * Telephone Encounter - Rose Wright OSA - 08/15/2024 2:31 PM EDT Appt scheduled. * Telephone Encounter - Rosalva Auguste OSA - 08/15/2024 2:19 PM EDT LVM for patient to call and schedule. Return in about 4 weeks (around 09/11/2024) for Rhejasson return 20.Check out comments:SCHEDULE 4 WEEKS TELEVIDeo MOOD documented in this encounter Plan of Treatment Upcoming Encounters Date Type Department Care Team (Late st Contact Info) Description 08/21/2024 1:45 PM EDT Office Visit Gynecology/Obstetrics [facility] [address] [place] [address] Shantel Bowman CRNP [address] [place] [address] Nurse Alfred Healthy Beginnings Return [facility] [address] [place] [address] 09/11/2024 7:40 AM EDT Telemedicine [facility] [address] [place] [address] Shantell Reilly CRNP [address] [place] [address] 12/19/2024 10:00 AM EDT Office Visit [facility] [address] [place] [address] Tenisha Gardner DO [address] [place] [address] Health Maintenance Due Date Last Done Comments [...] Author Reminders Care Plan OB Reminders No Territ, Provider documented as of this encounter Medical Devices Not on filedocumented as of this encounter Additional Health Concerns Active Problems Noted Date Diagnosed Date OB Reminders 02/20/2024 documented as of this encounter Care Teams Face Painter Relationship Specialty Start Date End Date Tenisha Gardner DO [address] [place] [address] PCP - General Family Medicine 12/19/23 documented as of this encounter
--- OUTSIDE RECORDS SUMMARY | 2024-09-26 07:44 | External Medical Summary | Summary of Care ---
Author Name Unknown Organization [facility] Address [address] [place] [address] Phone [phone] Care Team Providers Care Icu Staff Nurse Name Role Phone Tenisha Gardner DO Primary Care Provider +[phone] Reason for Visit * Reason Comments Healthy Beginnings Return 37w3d Encounter Details Date Type Department Care Team (Late st Contact Info) Description 09/04/2024 11:15 AM EDT Office Visit Gynecology/Obstetri ender Simon [address] [place] [address] Julieth Leon, [facility] [address] [place] [address] Nurse Alfred Healthy Beginnings Return Annika [address] [place] [address] Supervision of other normal , antepartum*; Class [...] resolved Need for food assistance referred to [facility] and local food [employer] 02/20/2024 Laurie Chaudhari [...] money to get more. Never true 04/24/2024 [place] Depression Scale Answer Date Recorded [place] Depression Scale Total 7 08/07/2024 The thought [...] Info) Description 09/11/2024 7:40 AM EDT Telemedicine [facility] [address] [place] [address] Shantell Reilly CRNP [address] [place] [address] 09/11/2024 9:00 AM EDT Office Visit Gynecology/Obstetrics [facility] [address] [place] [address] Javad Crowder MD [address] [place] [address] [facility] [address] [place] [address] 09/18/2024 9:30 AM EDT Office Visit Gynecology/Obstetrics [facility] [address] [place] [address] Shantel Bowman CRNP [address] [place] [address] Nurse Alfred [facility] [address] [place] [address] 12/19/2024 10:00 AM EDT Office Visit [facility] [address] [place] [address] Tenisha Gardner DO [address] [place] [address] Health Maintenance Due Date Last Done Comments [...] documented as of this encounter Care Teams Icu Staff Nurse Relationship Specialty Start Date End Date Tenisha Gardner DO [address] [place] [address] PCP - General Family Medicine 12/19/23 documented as of this encounter
--- OUTSIDE RECORDS SUMMARY | 2024-09-26 07:44 | External Medical Summary ---
Author Name Unknown Address Unknown Organization K01:LABORATORY [facility] [place] - [facility] [address] [place] [address] Laboratory Report Ordering Provider Test Date Status DANITA BARTON 08/28/2024 09:39:11 Final Observation Date Value Abnormality Reference (Units ) Status Streptococcus agalactiae DNA [Presence] in Specimen by RENE with probe detection 08/28/2024 09:39:11 Negative Negative Final No Group B Streptococcus det ected by culture-enhanced PCR (amplified probe). GBS GBSCT - [facility] 08/28/2024 09:39:11 0.0 Final GBS SPCCT - [facility] 08/28/2024 09:39:11 32.0 Final Performing Location LABORATORY [facility] [place] - [address] [place] [address]
--- OUTSIDE RECORDS SUMMARY | 2024-09-26 07:44 | External Medical Summary | Summary of Care ---
Author Name Unknown Organization [facility] Address [address] [place] [address] Phone [phone] Care Team Providers Care Toll Patrolman Name Role Phone Tenisha Gardner DO Primary Care Provider [phone] Reason for Visit * Reason Comments [facility] Return Encounter Details Date Type Department Care Team (Late st Contact Info) Description 08/28/2024 9:00 AM EDT Office Visit Gynecology/Obstetri ender Simon [address] [facility] [place] [address] Gerri Goodman PA-C [address] [place] [address] Nurse Alfred [facility] Annika [address] [facility] [address] Supervision of other normal , antepartum*; Class 1 obesity due to excess calories in adult, unspecified BMI, unspecified whether serious comorbidity present Allergies Active Allergy Reactions Criticality Noted Date Comments Dust Mite Extract 02/08/2008 Penicillins 02/25/2010 documented as of this encounter (statuses as of 08/28/2024) Medications Acetaminophen 325 MG Oral Tablet (Tylenol) [...] as of this encounter (statuses as of 08/28/2024) Active Problems Problem Noted Date Diagnosed Date [...] resolved Need for food assistance referred to [facility] and local food [place] 02/20/2024 Laurie [...] as of this encounter (statuses as of 08/28/2024) Resolved Problems Problem Noted Date Diagnosed Date Resolved Date Food insecurity 01/01/2024 05/06/2024 Overview: Per [facility] Protocol Encounter for supervision of other normal 09/26/2008 10/17/2008 Overview (09/22/2015): ICD-10 update of inactive term MA pending 03/18/2008 02/25/2010 Overview (08/01/2008): Enroll once active - enrolled documented as of this encounter (statuses as of 08/28/2024) Immunizations Name Administration Dates Next Due Hepatitis [...] money to get more. Never true 04/24/2024 [place] Depression Scale Answer Date Recorded [place] Depression Scale Total 7 08/07/2024 The thought [...] Sign Reading Time Taken Comments Blood Pressure 108/62 08/28/2024 9:06 AM EDT Pulse - - Temperature - - Respiratory Rate - - Oxygen Saturation - - Inhaled Oxygen Concentration - - Weight 104.8 kg (231 lb) 08/28/2024 9:06 AM EDT Height 160 cm (5' 3") 08/28/2024 9:06 AM EDT Body Mass Index 40.92 08/28/2024 9:06 AM EDT documented in this encounter Progress Notes * Gerri Goodman PA-C - 08/28/2024 9:27 AM EDT 36w3d Due for GBS, collected. Would like cervical check. Having some BH contractions. Occasional menstrual cramping vs round ligament pain. Has lost some of her mucous plug. Denies LOF, VB. Baby is active. Tobacco Flavorer Documentation Provider requested sap ppm consultant. Name of sap ppm consultant: Yajaira Pineda LPN Labor and labor precautions reviewed. When to call discussed. RTC in 1 week Gerri Goodman PA-C documented in this encounter Nursing Notes * Laurie Chaudhari RN - 08/28/2024 9:17 AM EDT Patient seen by [facility] Soil Expert. Patient denies any questions or concerns. have you cut down with your smoking n/a have you quit n/a have you seen a histology aide none have you seen a social security assessor none are you receiving counseling none have you received dental care during your no are you enrolled in WIC yes do you receive food stamps or [place] assistance deonte Chaudhari RN * Yajaira Castro LPN - 08/28/2024 9:06 AM EDT 36w3d GBS today. documented in this encounter Plan of Treatment Upcoming Encounters Date Type Department Care Team (Late st Contact Info) Description 09/04/2024 11:15 AM EDT Office Visit Gynecology/Obstetrics [facility] [address] [place] [address] Julieth Leon [facility] [address] [place] [phone] Nurse Alfred [facility] Return [facility] [address] [place] [address] 09/11/2024 7:40 AM EDT Telemedicine Family Practice [facility] [address] [place] [address] Shantell Reilly CRNP [address] [place] [address] 12/19/2024 10:00 AM EDT Office Visit [facility] [address] [place] [address] Tenisha Gardner DO [address] [place] [address] Pending Results Name Type Priority Associated Diagnoses Date /Time GROUP B STREP CULTURE/PCR Lab Routine Supervision of other normal , antepartum 08/28/2024 9:39 AM EDT Health Maintenance Due Date Last Done Comments [...] unspecified BMI, unspecified whether serious comorbidity present documented in this encounter Additional Health Concerns Active Problems Noted Date Diagnosed Date OB Reminders 02/20/2024 documented as of this encounter Care Teams Toll Patrolman Relationship Specialty Start Date End Date Tenisha Gardner DO [address] [place] [address] PCP - General Family Medicine 12/19/23 documented as of this encounter
--- OUTSIDE RECORDS SUMMARY | 2024-09-26 07:44 | External Medical Summary | Summary of Care ---
Author Name Unknown Organization [facility] Address [address] [place] [address] Phone [phone] Care Team Providers Care Block Breaker Name Role Phone Tenisha Gardner DO Primary Care Provider [phone] Reason for Visit * Reason Comments [facility] Return Encounter Details Date Type Department Care Team (Late st Contact Info) Description 08/21/2024 1:45 PM EDT Office Visit Gynecology/Obstetri ender Simon [address] [place] [address] Shantel Bowman CRNP [address] [place] [address] Nurse Alfred [facility] Return Annika [address] [facility] [address] Supervision of other normal , antepartum*; Class 1 obesity due to excess calories with serious comorbidity in adult, unspecified BMI Allergies Active Allergy Reactions Criticality Noted Date Comments Dust Mite Extract 02/08/2008 Penicillins 02/25/2010 documented as of this encounter (statuses as of 08/21/2024) Medications Acetaminophen 325 MG Oral Tablet (Tylenol) [...] as of this encounter (statuses as of 08/21/2024) Active Problems Problem Noted Date Diagnosed Date [...] resolved Need for food assistance referred to [facility] and local food [place] 02/20/2024 Laurie Chaudhari RN 02/20/2024 Problem Action [...] as of this encounter (statuses as of 08/21/2024) Resolved Problems Problem Noted Date Diagnosed Date Resolved Date Food insecurity 01/01/2024 05/06/2024 Overview: Per [facility] Protocol Encounter for supervision of other normal 09/26/2008 10/17/2008 Overview (09/22/2015): ICD-10 update of inactive term MA pending 03/18/2008 02/25/2010 Overview (08/01/2008): Enroll once active - enrolled documented as of this encounter (statuses as of 08/21/2024) Immunizations Name Administration Dates Next Due Hepatitis [...] money to get more. Never true 04/24/2024 [place] Depression Scale Answer Date Recorded [place] Depression Scale Total 7 08/07/2024 The thought [...] Sign Reading Time Taken Comments Blood Pressure 110/70 08/21/2024 1:56 PM EDT Pulse - - Temperature - - Respiratory Rate - - Oxygen Saturation - - Inhaled Oxygen Concentration - - Weight 104.8 kg (231 lb) 08/21/2024 1:56 PM EDT Height - - Body Mass Index 40.92 07/22/2024 11:31 AM EST documented in this encounter Progress Notes * Shantel Bowman CRNP - 08/21/2024 2:23 PM EDT 35w3d Partner stated her vagina felt "soft" when being intimate, was unclear what exactly felt this way. Reassured she is ok to have intercourse. She denies regular contractions, bleeding, LOF. Baby is active. VALORIE Jade * Sunshine Gilliam CMA - 08/21/2024 1:56 PM EDT 35w3d documented in this encounter Nursing Notes * Laurie Chaudhari RN - 08/21/2024 2:20 PM EDT Patient seen by [facility] Midwife. Patient denies any questions or concerns. Laurie Chaudhari RN documented in this encounter Plan of Treatment Upcoming Encounters Date Type Department Care Team (Late st Contact Info) Description 08/28/2024 9:00 AM EDT Office Visit Gynecology/Obstetrics [facility] Simon [address] [place] [address] Gerri Goodman PA-C [address] [place] [address] Nurse Alfred [facility] Return Annika [address] [place] [address] 09/11/2024 7:40 AM EDT Telemedicine Family Practice [facility] [address] [place] [address] Shantell Reilly CRNP [address] [place] [address] 12/19/2024 10:00 AM EDT Office Visit Family Practice [facility] [address] [place] [address] Tenisha Gardner, [address] [place] [address] Health Maintenance Due Date Last Done Comments [...] documented as of this encounter Care Teams Block Breaker Relationship Specialty Start Date End Date Tenisha Gardner DO [address] [place] [address] PCP - General Family Medicine 12/19/23 documented as of this encounter
--- OUTSIDE RECORDS SUMMARY | 2024-09-26 07:44 | External Medical Summary | Summary of Care ---
Author Name Unknown Organization [facility] Address [address] [place] [address] Phone [phone] Care Team Providers Care Manager Of Purchasing Name Role Phone Tenisha Gardner DO Primary Care Provider Encounter Details Date Type Department Care Team (Late st Contact Info) Description 09/11/2024 Telephone Gynecology/Obstetrics [facility] [address] [facility] [place] [address] Javad Crowder MD [address] [place] [address] Allergies Active Allergy Reactions Criticality Noted Date [...] resolved Need for food assistance referred to [facility] and local food [place] 02/20/2024 [...] money to get more. Never true 04/24/2024 [place] Depression Scale Answer Date Recorded [place] Depression Scale Total 7 08/07/2024 The thought [...] EDT Myg sent for IOL 09/26 at [facility] documented in this encounter Plan of Treatment Upcoming Encounters Date Type Department Care Team (Late st Contact Info) Description 09/18/2024 9:30 AM EDT Office Visit Gynecology/Obstetrics [facility] [address] [place] [address] Shantel Bowman CRNP [address] [place] [address] Nurse Alfred [facility] Return [facility] [address] [place] [address] 12/19/2024 10:00 AM EDT Office Visit Family Practice [facility] [address] [place] [address] Tenisha Gardner DO [address] [place] [address] Health Maintenance Due Date Last Done Comments [...] documented as of this encounter Care Teams Manager Of Purchasing Relationship Specialty Start Date End Date Tenisha Gardner DO [address] [place] [address] PCP - General Family Medicine 12/19/23 documented as of this encounter
--- OUTSIDE RECORDS SUMMARY | 2024-09-26 07:44 | External Medical Summary | Summary of Care ---
Author Name Unknown Organization [facility] Address [address] [place] [address] Phone [phone] Care Team Providers Care Submarine Worker Name Role Phone Tenisha Gardner DO Primary Care Provider Reason for Visit * Reason Onset Date Comments Follow Up 08/15/2024 Encounter Details Date Type Department Care Team (Late st Contact Info) Description 08/15/2024 Telephone Family Practice [facility] [address] [place] [address] Tenisha Gardner DO [address] [place] [address] Follow Up Allergies Active Allergy Reactions Criticality [...] resolved Need for food assistance referred to [facility] and local [employer] 02/20/2024 Laurie Chaudhari RN 02/20/2024 Problem Action [...] money to get more. Never true 04/24/2024 [place] Depression Scale Answer Date Recorded [place] Depression Scale Total 7 08/07/2024 The thought [...] 1:45 PM EDT Office Visit Gynecology/Obstetrics [facility] [address] [place] [address] Shantel Bowman CRNP [address] [place] [address] Nurse Alfred [facility] Return [facility] [address] [place] [address] 09/11/2024 7:40 AM EDT Telemedicine [facility] [address] [place] [address] Shantell Reilly CRNP [address] [place] [address] 12/19/2024 10:00 AM EDT Office Visit [facility] [address] [place] [address] Tenisha Gardner DO [address] [place] [address] Health Maintenance Due Date Last Done Comments [...] documented as of this encounter Care Teams Submarine Worker Relationship Specialty Start Date End Date Tenisha Gardner DO [address] [place] [address] PCP - General Family Medicine 12/19/23 documented as of this encounter
--- OUTSIDE RECORDS SUMMARY | 2024-09-26 07:44 | External Medical Summary | Summary of Care ---
Author Name Unknown Organization [facility] Address [address] [place] [address] Phone [phone] Care Team Providers Care Student Finance Advisor Name Role Phone Tenisha Gardner DO Primary Care Provider [phone] Reason for Visit * Reason Comments Follow Up Encounter Details Date Type Department Care Team (Late st Contact Info) Description 08/14/2024 12:40 PM EDT Telemedicine Family Practice [facility] [address] [place] [address] Shantell Reilly CRNP [address] [place] [address] GIANNA (generalized anxiety disorder)*; Psychophysiologic insomnia; 34 weeks gestation of Allergies Active Allergy Reactions Criticality Noted Date Comments Dust Mite Extract 02/08/2008 Penicillins 02/25/2010 documented as of this encounter (statuses as of 08/14/2024) Medications Acetaminophen 325 MG Oral Tablet (Tylenol) [...] as of this encounter (statuses as of 08/14/2024) Active Problems Problem Noted Date Diagnosed Date [...] as of this encounter (statuses as of 08/14/2024) Resolved Problems Problem Noted Date Diagnosed Date Resolved Date Food insecurity 01/01/2024 05/06/2024 Overview: Per [facility] Protocol Encounter for supervision of other normal 09/26/2008 10/17/2008 Overview (09/22/2015): ICD-10 update of inactive term MA pending 03/18/2008 02/25/2010 Overview (08/01/2008): Enroll once active - enrolled documented as of this encounter (statuses as of 08/14/2024) Immunizations Name Administration Dates Next Due Hepatitis [...] money to get more. Never true 04/24/2024 [place] Depression Scale Answer Date Recorded [place] Depression Scale Total 7 08/07/2024 The thought [...] s 04/24/2024 Does the household have a [facility] source of income? (Household - for ages [...] AM EDT documented as of this encounter Progress Notes * Shantell Reilly CRNP - 08/14/2024 12:43 PM EDT Telemed Follow up Family Medicine Visit Patient location: HOME. I was in a hospital or clinic location. After connecting through televideo,patient was verified with two unique identifiers. Patient (or authorized legal patient registration representative) was then informed that this was a Telemedicine visit and being conducted confidentially over secure lines. Methods to assure confidentiality were taken. Patient acknowledged consent and understanding of pr ivacy and security of the Telemedicine visit. The patient agreed to participate. CC: follow up mood History of Present Illness: Yancy Ramesh is a 34 year old female presenting for follow up mood. She is feeling significantlyimproved on on magnesium glycinate and vistaril prn. She usually able to take hydroxizine once daily Sleeping 4-5 hours at a time. Denies si/hi She is almost 40 weeks. Scheduled to see psychiatry Social History Socioeconomic History Marital status: Spouse name: Not on file Number of children: Not on file Years of education: Not on file Highest education level: Not on file Occupational History Not on file Tobacco Use Smoking status: Every Day Current packs/day: 20.00 Types: Cigarettes, Vaporizer Passive exposure: Current (She is trying to cut back, 1-2 cigarettes a day) Smokeless tobacco: Never Vaping Use Vaping status: Never Used Substance and Sexual Activity Alcohol use: Not Currently Comment: a few times a month Drug use: Not Currently Types: Marijuana Comment: last use 01/2024 Sexual activity: Yes Partners: Male control/protection: Condom Other Topics Concern Not on file Social History Narrative Not on file Social Needs Financial Resource Strain: Low Risk (04/24/2024) Financial Resource Strain Do you have any trouble paying for your medications, or do you think you might in the future? (Adult - for ages 18 years and over): No Does your family have trouble paying for medicine? (Household - for ages 0-17 years): Not on file Food Insecurity: No Food Insecurity (04/24/2024) Food Insecurity Worried About Running Out of Food in the Last Year: Never true Ran Out of Food in the Last Year: Never true Do you need food for this week? (Adult - for ages 18 years and over): No Transportation Needs: No Transportation Needs (04/24/2024) Transportation Needs Do you have trouble getting a ride to medical visits or work? (Adult - for ages 18 years and over):Not on file Does your family have a hard time getting a ride to doctors’ visits? (Household - for ages 0-17 years): Not on file Has lack of transportation kept you from medical appointments, meetings, work, or from getting things needed for daily living? Check all that apply. (Adult - for ages 18 years and over): No Do you (or your family) have trouble finding or paying for a ride (transportation)? (Household - for ages 0-17 years): Not on file Social Connections: Socially Integrated (04/24/2024) Social Connections How often do you feel lonely or isolated from those around you? (Adult - for ages 18 years and over): Never Housing Stability: Low Risk (04/24/2024) Housing Stability Do you currently live in a assisted or have no steady place to sleep at night? (Adult - for ages 18 years and over): No Do you think you are at risk of becoming homeless? (Adult - for ages 18 years and over): Not on file Does your family worry about paying for your home or becoming homeless? (Household - for ages 0-17 years): Not on file Are you homeless or worried that you might be in the future? (Adult - for ages 18 years and over): No Are you (or your family) homeless or worried that you might be in the future? (Household - for ages0-17 years): Not on file PMH: Past Medical History: Diagnosis Date Anxiety Depression Tobacco use disorder Tobacco use, current Past Surgical History: Procedure Laterality Date EXCISE BENIGN LESION, TRUNK, ARM, LEG, 0.6 - 1.0 CM 13yo mole removed benign NV REMOVAL OF IMPACTED TOOTH - SOFT TISSUE Current Outpatient Medications Medication Sig Dispense Refill Magnesium 400 MG Oral Tablet Take by mouth. hydrOXYzine Pamoate 25 MG Oral Capsule 1-2 TABLETS 30- 60 MIN BEFORE BED 30 Capsule 0 Adult Gummy/DHA/FA 0.4-25 MG Oral Tablet Chewable Take by mouth. Acetaminophen 325 MG Oral Tablet (Tylenol) Take 1 Tablet by mouth every 6 hours as needed. Current Facility-Administered Medications Medication Dose Route Frequency Provider Last Rate Last Admin Albuterol Sulfate (Proventil) (2.5 MG/3ML) 0.083% inhalation solution 2.5 mg 2.5 mg Nebulizer Once PRN Review of patient's allergies indicates: Allergen Reactions Dust Mite Extract Penicillins Most Recent Immunizations Administered Date(s) Administered COVID-19 mRNA, LNP-s, No Preserve, 2-Dose Series (Moderna) 12/27/2020 Hepatitis B, 20+ yrs 08/04/2016 MMR - Measles/Mumps/Rubella Vaccine 08/04/2016 Seasonal Influenza Virus Vaccine, Unspecified Formulation 11/04/2016 Seasonal Influenza, Trivalent, (IIV3), PF, (Fluzone) 01/25/2024 TDAP (age 10 and older)(Boostrix) 08/04/2016 TDAP, Age 7 and older, IM (Adacel) 07/05/2024 Varicella Vaccine (Chicken Pox) 08/04/2016 Review of Systems: Review of Systems Psychiatric/Behavioral: Positive for sleep disturbance. Negative for hallucinations and suicidal ideas. The patient is nervous/anxious. Physical Exam: LMP 12/17/2023 (Exact Date) Physical Exam HENT: Head: Normocephalic. Pulmonary: Effort: Pulmonary effort is normal. Neurological: General: No focal deficit present. Mental Status: She is alert and oriented to person, place, and time. Psychiatric: Mood and Affect: Mood normal. Behavior: Behavior normal. Thought Content: Thought content normal. Judgment: Judgment normal. Assessment and Plan: 1. GIANNA (generalized anxiety disorder) (Primary) Continue hydroxizine Feels overall less anxious Denies si/hi Hold on adding ssri at this point in the Continue magnesium 400 mg daily 2. Psychophysiological insomnia Failed melatonin, unisome Continue vistaril IMPROVED 4-5 HOURS 3. 34 weeks gestation of Feeling movement No discharge or cramping - ADULT/PEDS PSYCHIATRY REFERRAL OP I have advised the patient to call our office incase of any worsening or new symptoms. I spent a total of 20-29 minutes (exact time 20 mins) on the date of service in preparation, delivery, and documentation of the care provided to Yancy Ramesh excluding any time spent in the performance of separately billed services. Miguel Angel, MERYL, VALORIE [facility] documented in this encounter Plan of Treatment Upcoming Encounters Date Type Department Care Team (Late st Contact Info) Description 08/21/2024 1:45 PM EDT Office Visit Gynecology/Obst[facility]s [facility] [address] [place] [address] Shantel Bowman CRNP [address] [place] [address] Nurse Alfred [facility] Return [facility] [address] [place] [address] 12/19/2024 10:00 AM EDT Office Visit Family Practice [facility] [address] [place] [address] Tenisha Gardner DO [address] [place] [address] Health Maintenance Due Date Last Done Comments [...] unspecified BMI, unspecified whether serious comorbidity present GIANNA (generalized anxiety disorder)- Primary Generalized anxiety disorder Psychophysiologic insomnia Persistent disorder of initiating or maintaining sleep 34 weeks gestation of state, incidental documented in this encounter Additional Health Concerns Active Problems Noted Date Diagnosed Date OB Reminders 02/20/2024 documented as of this encounter Care Teams Student Finance Advisor Relationship Specialty Start Date End Date Tenisha Gardner DO [address] [place] [address] PCP - General Family Medicine 12/19/23 documented as of this encounter
--- OUTSIDE RECORDS SUMMARY | 2024-09-26 07:44 | External Medical Summary | Summary of Care ---
Author Name Unknown Organization [facility] Address [address] [place] [address] Phone [phone] Care Team Providers Care Sales Order Administrator Name Role Phone Tenisha Gardner DO Primary Care Provider [phone] Reason for Visit * Reason Comments Healthy Beginnings Return Encounter Details Date Type Department Care Team (Late st Contact Info) Description 08/28/2024 9:00 AM EDT Office Visit Gynecology/Obstetri ender Simon [address] [facility] [place] [address] Gerri Goodman PA-C [address] [facility] [address] [facility] Alfred [facility] [address] [facility] [address] Supervision of other normal , antepartum*; Class [...] resolved Need for food assistance referred to [facility] and local food [place] 02/20/2024 Laurie [...] money to get more. Never true 04/24/2024 [place] Depression Scale Answer Date Recorded [place] Depression Scale Total 7 08/07/2024 The thought [...] plug. Denies LOF, VB. Baby is active. [employer] Integrator Documentation Provider requested tire and lube technician. Name of tire and lube technician: Yajaira Pineda LPN Labor and labor precautions reviewed. When to call discussed. RTC in 1 week Gerri Goodman PA-C documented in this encounter Nursing Notes * Laurie Chaudhari RN - 08/28/2024 9:17 AM EDT Patient seen by [facility] Biomedical Equipment Technician. Patient denies any questions or concerns. have you cut down with your smoking n/a have you quit n/a have you seen a inspector canvas products none have you seen a social science analyst none are you receiving counseling none have [...] 09/04/2024 11:15 AM EDT Office Visit Gynecology/Obstetrics [facility] [address] [place] [address] Julieth Leon [facility] [address] [place] [phone] Nurse Alfred [facility] Beginnings Return [facility] [address] [place] [address] 09/11/2024 7:40 AM EDT Telemedicine Family Practice [facility] [address] [place] [address] Shantell Reilly CRNP [address] [place] [address] 12/19/2024 10:00 AM EDT Office Visit [facility] [address] [place] [address] Tenisha Gardner DO [address] [place] [address] Pending Results Name Type Priority Associated Diagnoses [...] as of this encounter Care Teams Sales Order Administrator Relationship Specialty Start Date End Date Tenisha Gardner DO [address] [place] [address] PCP - General Family Medicine 12/19/23 documented as of this encounter
--- OUTSIDE RECORDS SUMMARY | 2024-09-26 07:45 | External Medical Summary ---
Author Name Unknown Address Unknown Organization K01:[facility] [place] [address] [place] [address] Laboratory Report Ordering Provider Test Date Status IRASEMA PELAEZ 07/05/2024 12:11:16 Final Observation Date Value Abnormality Reference (Units ) Status Creatinine 07/05/2024 12:11:16 0.5 0.5-1.0 (mg/dL) Final Glomerular filtration rate/1.73 sq M.predicted [Volume Rate/Area] in Serum, Plasma or Blood by Creatinine-based formula (CKD-EPI) 07/05/2024 12:11:16 >90 >=60 (mL/min) Final eGFR is calculated based on the CKD-EPI 2020 equation. Performing Location [facility] [place] [address] [place] [address]
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
--- OUTSIDE RECORDS SUMMARY | 2024-09-26 07:45 | External Medical Summary | Summary of Care ---
Author Name Unknown Organization [facility] Address [address] [place] [address] Phone [phone] Care Team Providers Care Cardiac Care Unit Nurse Name Role Phone Tenisha Gardner DO Primary Care Provider Encounter Details Date Type Department Care Team (Latest Contact Info) Description 07/23/2024 1:33 PM EST - 07/23/2024 11:59 PM EST Hospital Encounter Radiology Film File [address] [place] [address] Arrived Discharge Disposition: Home - Self Care Allergies Active Allergy Reactions Criticality Noted Date Comments Dust Mite Extract 02/08/2008 Penicillins 02/25/2010 documented as of this encounter (statuses as of 07/24/2024) Medications Acetaminophen 325 MG Oral Tablet (Tylenol) [...] as of this encounter (statuses as of 07/24/2024) Active Problems Problem Noted Date Diagnosed Date 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 07/10/2024 Supervision of other normal , antepartu m 04/15/2024 Class 1 obesity due to excess calories in adult 03/19/2024 Obesity in , antepartum 02/20/2024 Health counseling 02/20/2024 Overview (07/05/2024): Problem Action Taken Date entered Entered by Date resolved Need for food assistance referred to [facility] and local food [place] 02/20/2024 Laurie [...] as of this encounter (statuses as of 07/24/2024) Resolved Problems Problem Noted Date Diagnosed Date Resolved Date Food insecurity 01/01/2024 05/06/2024 Overview: Per [facility] Protocol Encounter for supervision of other normal 09/26/2008 10/17/2008 Overview (09/22/2015): ICD-10 update of inactive term MA pending 03/18/2008 02/25/2010 Overview (08/01/2008): Enroll once active - enrolled documented as of this encounter (statuses as of 07/24/2024) Immunizations Name Administration Dates Next Due Hepatitis [...] money to get more. Never true 04/24/2024 [place] Depression Scale Answer Date Recorded [place] Depression Scale Total 9 02/20/2024 The thought [...] AM EDT documented as of this encounter Plan of Treatment Upcoming Encounters Date Type Department Care Team (Late st Contact Info) Description 08/07/2024 10:15 AM EDT Office Visit Gynecology/Obstetrics [facility]w [facility] [address] [place] [address] Shantel Bowman CRNP [address] [place] [address] Nurse Alfred Healthy [facility] Return Annika [address] [place] [address] 08/14/2024 12:40 PM EDT Telemedicine Family Practice [facility] [address] [place] [address] Shantell Reilly CRNP [address] [place] [id number] 12/19/2024 10:00 AM EDT Office Visit Family Practice [facility] [address] [place] [address] Tenisha Gardner, [address] [place] [address] Health Maintenance Due Date Last Done Comments [...] study not interpreted or resulted by a [employer] or [employer] contracted radiologist. us Alba Juan PA-C RADIOLOGY (RAD GENE [facility]) Final Result documented in this encounter Additional Health Concerns Active Problems Noted Date Diagnosed Date OB Reminders 02/20/2024 documented as of this encounter Care Teams Cardiac Care Unit Nurse Relationship Specialty Start Date End Date Tenisha Gardner DO [address] [facility] [place] [address] PCP - General Family Medicine 12/19/23 documented as of this encounter
--- OUTSIDE RECORDS SUMMARY | 2024-09-26 07:45 | External Medical Summary | Summary of Care ---
Author Name Unknown Organization [facility] Address [address] [place] [address] Phone [phone] Care Team Providers Care Whitesmith Name Role Phone Tenisha Gardner DO Primary Care Provider [phone] Reason for Referral * Evaluate & Treat - Unlimited Visits (Within 3 days (urgent)) - Authorized Specialty Diagnoses / Procedures Referred By Gatito stoner Referred To Contact Psychiatry Diagnoses GIANNA (generalized anxiety disorder) Psychophysiological insomnia 29 weeks gestation of Shantell Reilly CRNP [address] [facility] [place] [address] Phone: tel: fax: Referral ID Status Reason Start Date Expiration Date Visits Requested Visits Authorized [id number] Authorized Specialty Services Required 07/10/2024 999 999 Question Answer Referral Priority Within 3 days (urgent) Where should this appointment be scheduled? [facility] Is this referral for medication management? Yes Reason for Referral Anxiety Comments Anxiety and currently Reason for Visit * Reason Comments Acute Encounter Details Date Type Department Care Team (Late st Contact Info) Description 07/10/2024 12:40 PM EST Telemedicine Family Practice [facility] [address] [place] [address] Shantell Reilly CRNP [address] [place] [address] GIANNA (generalized anxiety disorder)*; Psychophysiological insomnia; 29 weeks gestation of ; Mild episode of recurrent major depressive disorder (HCC) Allergies Active Allergy Reactions Criticality Noted Date Comments Dust Mite Extract 02/08/2008 Penicillins 02/25/2010 documented as of this encounter (statuses as of 07/10/2024) Medications Melatonin 10 MG Oral Capsule Take 5 mg by mouth as needed (insomnia). Active Acetaminophen 325 MG Oral Tablet (Tylenol) Take 1 Tablet by mouth every 6 hours as needed. Active Adult Gummy/DHA/FA 0.4-25 MG Oral Tablet Chewable Take by mouth. Active Unisom PM Pain 50-325 MG Oral Tablet (diphenhydrAMIN E-APAP (sleep)) Take by mouth. Active Zolpidem Tartrate 5 MG Oral Tablet (Ambien)Indicat ions:Other insomnia Take 1 Tablet by mouth at bedtime as needed for Sleep. 5 Tablet 07/05/2024 Active hydrOXYzine Pamoate 25 MG Oral Capsule 1-2 TABLETS 30- 60 MIN BEFORE BED 30 Capsule 07/10/2024 Active Hospital, Clinic, or Other Facility Administered Medication Ordered Dose Route Frequency Start Date End Date Status Albuterol Sulfate (Proventil) (2.5 MG/3ML) 0.083% inhalation solution 2.5 mgIndications:Tobacco abuse 2.5 mg NEBULIZER ONCE PRN 12/19/2023 12/18/2024 Active documented as of this encounter (statuses as of 07/10/2024) Active Problems Problem Noted Date Diagnosed Date 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 07/10/2024 Supervision of other normal , antepartu m 04/15/2024 Class 1 obesity due to excess calories in adult 03/19/2024 Obesity in , antepartum 02/20/2024 Health counseling 02/20/2024 Overview (07/05/2024): Problem Action Taken Date entered Entered by Date resolved Need for food assistance referred to [facility] and local food [place] 02/20/2024 [...] Laurie Chaudhari RN 07/05/2024 Assessment & Plan (04/15/2024 1:56 PM EST): [...] as of this encounter (statuses as of 07/10/2024) Resolved Problems Problem Noted Date Diagnosed Date Resolved Date Food insecurity 01/01/2024 05/06/2024 Overview: Per [facility] Protocol Encounter for supervision of other normal 09/26/2008 10/17/2008 Overview (09/22/2015): ICD-10 update of inactive term MA pending 03/18/2008 02/25/2010 Overview (08/01/2008): Enroll once active - enrolled documented as of this encounter (statuses as of 07/10/2024) Immunizations Name Administration Dates Next Due Hepatitis [...] money to get more. Never true 04/24/2024 [place] Depression Scale Answer Date Recorded [place] Depression Scale Total 9 02/20/2024 The thought [...] Progress Notes * Shantell Reilly CRNP - 07/10/2024 12:49 PM EST Acute Telemed Family Medicine Visit Patient location: HOME. I was in a hospital or clinic location. After connecting through televideo,patient was verified with two unique identifiers. Patient (or authorized legal passenger representative) was then informed that this was a Telemedicine visit and being conducted confidentially over secure lines. Methods to assure confidentiality were taken. Patient acknowledged consent and understanding of pr ivacy and security of the Telemedicine visit. The patient agreed to participate. CC:currently and having increased anxiety History of Present Illness: Yancy Ramesh is a 34 year old female presenting for complaints of anxiety increased since she has been . She has had multiple loss in the past and being is making her feel on edge. She is having intrusive thoughts like has to feel baby move before she can go back to sleep. Denies si/hi +RACING THOUGHTS +IRRITABILITY +DIFFICULTY GETTING TO SLEEP AND STAYING ASLEEP. CURRENTLY only getting 2-3 hours per night -Denies psychosis. Tried melatonin 10 MG tRIED UNISOM- 25 mg OBGYN gave her 5 doses of ambien. Hx of treating anxiety and depression in the past. Had suicidal ideation on zoloft in the past. Shealso tried buspar. Social History Socioeconomic History Marital status: Spouse [...] Stability Do you currently live in a penitentiary or have no steady place to sleep [...] - 1.0 CM 13yo mole removed benign [place] REMOVAL OF IMPACTED TOOTH - SOFT TISSUE Current Outpatient Medications Medication Sig Dispense Refill Zolpidem Tartrate 5 MG Oral Tablet (Ambien) Take 1 Tablet by mouth at bedtime as needed for Sleep. 5 Tablet 0 Unisom PM Pain 50-325 MG Oral Tablet (diphenhydrAMINE-APAP (sleep)) Take by mouth. Adult Gummy/DHA/FA 0.4-25 MG Oral Tablet Chewable Take by mouth. Acetaminophen 325 MG Oral Tablet (Tylenol) Take 1 Tablet by mouth every 6 hours as needed. Melatonin 10 MG Oral Capsule Take 5 mg by mouth as needed (insomnia). (Patient not taking: Reportedon 07/05/2024) Current Facility-Administered Medications Medication Dose Route Frequency [...] Psychiatric/Behavioral: Positive for sleep disturbance. Negative for dysphoric mood. The patient isnervous/anxious. Physical Exam: LMP 12/17/2023 (Exact Date) Physical Exam HENT: Head: Normocephalic. Pulmonary: Effort: Pulmonary effort is normal. Neurological: General: No focal deficit present. Mental Status: She is alert and oriented to person, place, and time. Psychiatric: Mood and Affect: Mood normal. Behavior: Behavior normal. Thought Content: Thought content normal. Judgment: Judgment normal. Assessment and Plan: 1. GIANNA (generalized anxiety disorder) (Primary) Not controlled but also patient feels she can handle until baby is born. Denies si/hi Hold on adding ssri at this point in the - ADULT/PEDS PSYCHIATRY REFERRAL OP Failed sertraline in the past due to SI Consider change magnesium glycinate 120 mg bid 2. Psychophysiological insomnia Failed melatonin, unisome Advise against ambien at this time Add hydroxizine - ADULT/PEDS PSYCHIATRY REFERRAL OP 3. 29 weeks gestation of Feeling movement No discharge or cramping - ADULT/PEDS PSYCHIATRY REFERRAL OP 4. Mild episode of recurrent major depressive disorder (HCC) PATIENT DENIES CURRENT SI/HI DENIES PSYCHOTIC SYMPTOMS I have advised the patient to call our office incase of any worsening or new symptoms. I spent a total of 20-29 minutes (exact time 25 mins) on the date of service in preparation, delivery, and documentation of the care provided to Yancy Ramesh excluding any time spent in the performance of separately billed services. Miguel Angel, MERYL, VALORIE [facility] [place] documented in this encounter Plan of Treatment Upcoming Encounters Date Type Department Care Team (Late st Contact Info) Description 07/22/2024 11:30 AM EST Office Visit Gynecology/Obstetrics Stew Simon [address] [place] [address] Gerri Goodman PA-C [address] [place] [address] Nurse Alfred [facility] Return Annika [address] [place] [address] 12/19/2024 10:00 AM EDT Office Visit Family Practice [facility] [place] [address] [place] [address] Tenisha Gardner, [address] [place] [address] 12/26/2024 2:00 PM EDT [facility] [address] [place] [phone] Tenisha Castañeda PA-C [address] [place] [address] [place] [address] Scheduled Referrals Name Type Priority Associated Diagnoses Orde r Schedule ADULT/PEDS PSYCHIATRY REFERRAL OP Referral Within 3 days (urgent) GIANNA (generalized anxiety disorder) Psychophysiological insomnia 29 weeks gestation of Ordered: 07/10/2024 Health Maintenance Due Date Last Done Comments Depression Screening 2001 Pneumococcal Vaccine: Pediatrics (0 to 5 [...] related hip pain in second trimester, antepartum GIANNA (generalized anxiety disorder)- Primary Generalized anxiety disorder Psychophysiological insomnia Persistent disorder of initiating or maintaining sleep 29 weeks gestation of state, incidental Mild episode of recurrent major depressive disorder (HCC) documented in this encounter Additional Health Concerns Active Problems Noted Date Diagnosed Date OB Reminders 02/20/2024 documented as of this encounter Care Teams Whitesmith Relationship Specialty Start Date End Date Tenisha Gardner DO [address] [place] [address] PCP - General Family Medicine 12/19/23 documented as of this encounter
--- OUTSIDE RECORDS SUMMARY | 2024-09-26 07:45 | External Medical Summary | Summary of Care ---
Author Name Unknown Organization [facility] Address [address] [place] [address] Phone [phone] Care Team Providers Care Technician Helper Instrument Name Role Phone Tenisha Gardner DO Primary Care Provider [phone] Reason for Visit * Reason Comments NEW [...] moles Tenisha Gardner DO [address] [place] [address] Phone: tel: fax: Referral ID Status Reason Start Date Expiration Date Visits Requested Visits Authorized [id number] Authorized Specialty Services Required 12/19/2023 999 999 Encounter Details Date Type Department Care Team (Late st Contact Info) Description 07/23/2024 1:30 PM EST Office Visit Dermatology Mely [facility]on [place] [address] [facility] [place] [address] Alba Juan PA-C [address] [facility] [place] [address] Neoplasm of uncertain behavior of skin*; Multiple [...] to [facility] and local food [place] 02/20/2024 [...] money to get more. Never true 04/24/2024 [place] Depression Scale Answer Date Recorded [place] Depression Scale Total 9 02/20/2024 The thought [...] Watt PA-C . Romain Duran MD., Dermatology [facility] Departments [address] [place] [address] , [place] [address] * Alba Juan PA-C - 07/23/2024 1:33 [...] PRN ALLERGIES: Dust mite extract and Penicillins Tourist Cabin Keeper Documentation Patient offered diamond driller and declined. OBJECTIVE: GEN: Healthy, alert, no [...] with corrugated surface R upper abdomen 2. [place] and brown macule R lower back 3. [...] 08/07/2024 10:15 AM EDT Office Visit Gynecology/Obstetrics [facility] [address] [place] [address] Shantel Bowman CRNP [address] [place] [address] Nurse Alfred [facility] Return [facility] [address] [place] [address] 08/14/2024 12:[address] [facility] [address] [place] [address] Shantell Reilly CRNP [address] [place] [address] 12/19/2024 10:00 AM EDT Office Visit [facility] [address] [place] [address] Tenisha Gardner DO [address] [place] [address] Health Maintenance Due Date Last Done Comments [...] interpreted or resulted by a [facility] or [facility] contracted radiologist. Alba Juan PA-C RADIOLOGY (RAD [...] as of this encounter Care Teams Technician Helper Instrument Relationship Specialty Start Date End Date Tenisha Gardner DO [address] [place] [address] PCP - General Family Medicine 12/19/23 documented as of this encounter
--- OUTSIDE RECORDS SUMMARY | 2024-09-26 07:45 | External Medical Summary | Summary of Care ---
Author Name Unknown Organization [facility] Address [address] [place] [address] Phone [phone] Care Team Providers Care Automotive Parts Interpreter Name Role Phone Tenisha Gardner DO Primary Care Provider [phone] Reason for Visit * Reason Comments [facility] Return Encounter Details Date Type Department Care Team (Late st Contact Info) Description 08/07/2024 10:15 AM EDT Office Visit Gynecology/Obstetri ender Simon [address] [address] Shantel Bowman CRNP [address] [place] [address] Nurse Alfred [facility] Return Annika [address] [place] [address] Supervision of other normal , antepartum*; Class 1 obesity due to excess calories without serious comorbidity in adult, unspecified BMI Allergies Active Allergy Reactions Criticality Noted Date Comments Dust Mite Extract 02/08/2008 Penicillins 02/25/2010 documented as of this encounter (statuses as of 08/07/2024) Medications Acetaminophen 325 MG Oral Tablet (Tylenol) [...] as of this encounter (statuses as of 08/07/2024) Active Problems Problem Noted Date Diagnosed Date 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 07/10/2024 Supervision of other normal , antepartu m 04/15/2024 Class 1 obesity due to excess calories in adult 03/19/2024 Obesity in , antepartum 02/20/2024 Health counseling 02/20/2024 Overview (08/07/2024): Problem Action Taken Date entered Entered by Date resolved Need for food assistance referred to [facility] and local [employer] 02/20/2024 Laurie Chaudhari RN 02/20/2024 Problem Action [...] as of this encounter (statuses as of 08/07/2024) Resolved Problems Problem Noted Date Diagnosed Date Resolved Date Food insecurity 01/01/2024 05/06/2024 Overview: Per [facility] Protocol Encounter for supervision of other normal 09/26/2008 10/17/2008 Overview (09/22/2015): ICD-10 update of inactive term MA pending 03/18/2008 02/25/2010 Overview (08/01/2008): Enroll once active - enrolled documented as of this encounter (statuses as of 08/07/2024) Immunizations Name Administration Dates Next Due Hepatitis [...] money to get more. Never true 04/24/2024 [place] Depression Scale Answer Date Recorded [place] Depression Scale Total 7 08/07/2024 The thought [...] 04/24/2024 Does the household have a re lar source of income? (Household - for ages [...] Sign Reading Time Taken Comments Blood Pressure 106/66 08/07/2024 10:25 AM EDT Pulse - - Temperature - - Respiratory Rate - - Oxygen Saturation - - Inhaled Oxygen Concentration - - Weight 103.9 kg (229 lb) 08/07/2024 10:25 AM EDT Height - - Body Mass Index 40.57 07/22/2024 11:31 AM EST documented in this encounter Progress Notes * Shantel Bowman CRNP - 08/07/2024 10:36 AM EDT 33w3d Some BH contractions, nothing timeable. Increased vaginal discharge, denies s/s of infection. Baby is very active. Denies bleeding, LOF. VALORIE Jade * Sunshine Gilliam CMA - 08/07/2024 10:25 AM EDT 33w3d. Increase in nausea and alecia tracey. documented in this encounter Nursing Notes * Laurie Chaudhari RN - 08/07/2024 10:45 AM EDT Patient seen by [facility] Insurance Assistant. Patient denies any questions or concerns. Laurie Chaudhari RN documented in this encounter Plan of Treatment Upcoming Encounters Date Type Department Care Team (Late st Contact Info) Description 08/14/2024 12:40 PM EDT Telemedicine Family Practice [facility] [address] [address] Shantell Reilly CRNP [address] [place] [address] 08/21/2024 1:00 PM EDT Office Visit Gynecology/Obstetrics [facility] [address] [address] Nasrin Nolasco CRNP [address] [place] [address] 12/19/2024 10:00 AM EDT Office Visit Family Practice [facility] [address] [place] [address] Tenisha Gardner DO [address] [place] [address] Health Maintenance Due Date Last Done Comments [...] Class 1 obesity due to excess calories without serious comorbidity in adult, unspecified BMI documented in this encounter Additional Health Concerns Active Problems Noted Date Diagnosed Date OB Reminders 02/20/2024 documented as of this encounter Care Teams Automotive Parts Interpreter Relationship Specialty Start Date End Date Tenisha Gardner DO [address] [place] [address] PCP - General Family Medicine 12/19/23 documented as of this encounter
--- OUTSIDE RECORDS SUMMARY | 2024-09-26 07:45 | External Medical Summary | Summary of Care ---
Author Name Unknown Organization [facility] Address [address] [place] [address] Phone [phone] Care Team Providers Care Shactor Helper Name Role Phone Tenisha Gardner DO Primary Care Provider [phone] Reason for Visit * Reason Comments [facility] Return Encounter Details Date Type Department Care Team (Late st Contact Info) Description 08/07/2024 10:15 AM EDT Office Visit Gynecology/Obstetri ender Simon [address] [facility] [place] [address] Shantel Bowman CRNP [address] [place] [address] Nurse Alfred [facility] Return Annika [address] [facility] [place] [address] Supervision of other normal , antepartum*; Class [...] resolved Need for food assistance referred to [facility] and local [place] 02/20/2024 Laurie Chaudhari RN 02/20/2024 Problem Action [...] money to get more. Never true 04/24/2024 [place] Depression Scale Answer Date Recorded [place] Depression Scale Total 7 08/07/2024 The thought [...] AM EDT Patient seen by [facility] [place]. Patient denies any questions or concerns. Laurie Chaudhari RN documented in this encounter Plan of Treatment Upcoming Encounters Date Type Department Care Team (Late st Contact Info) Description 08/14/2024 12:40 PM EDT Telemedicine Family Practice [facility] [address] [address] Shantell Reilly CRNP [address] [place] [address] 08/21/2024 1:00 PM EDT Office Visit Gynecology/Obstetrics [facility] [address] [address] Nasrin Nolasco CRNP [address] [place] [address] 12/19/2024 10:00 AM EDT Office Visit Family Practice [facility] [address] [place] [address] Tenisha Gardner DO [address] [place] [address] Health Maintenance Due Date Last Done Comments [...] documented as of this encounter Care Teams Shactor Helper Relationship Specialty Start Date End Date Tenisha Gardner DO [address] [place] [address] PCP - General Family Medicine 12/19/23 documented as of this encounter
--- OUTSIDE RECORDS SUMMARY | 2024-09-26 07:45 | External Medical Summary ---
Author Name Unknown Address Unknown Organization K01:LABORATORY [facility] - [address] [facility] [place] [address] Laboratory Report Ordering Provider Test Date Status IRASEMA PELAEZ 07/05/2024 12:11:16 Final Observation Date Value Abnormality Reference (Units ) Status WBC, Total 07/05/2024 12:11:16 12.31 Above high normal 4 .00-10.80 (K/uL) Final RBC 07/05/2024 12:11:16 3.78 3.85-5.15 (M/uL) Final Hemoglobin 07/05/2024 12:11:16 11.3 Below low normal 12 .0-15.3 (g/dL) Final Anemia reflex testing trigge rs on a HGB < 12.0 for Females and HGB < 13.0 for Males in accordance with the WHO Anemia Guidelines
Anemia reflex testing triggers on a HGB < 12.0 for Females and HGB < 13.0 for Males in accordance with the WHO Anemia Guidelines HCT 07/05/2024 12:11:16 34.9 Below low normal 36. 0-45.2 (%) Final MCV 07/05/2024 12:11:16 92.3 81.5-97.5 (fL) Final MCH 07/05/2024 12:11:16 29.9 27.0-34.0 (pg) Final MCHC 07/05/2024 12:11:16 32.4 32.0-36.0 (g/dL) Final RDW 07/05/2024 12:11:16 13.0 11.5-15.5 (%) Final Platelets 07/05/2024 12:11:16 322 140-400 (K /uL) Final MPV 07/05/2024 12:11:16 9.6 6.6-11.1 ( fL) Final Nucleated erythrocytes/100 leukocytes [Ratio] in Blood by Automated count 07/05/2024 12:11:16 0 <=0 (/100 WBCs) Final Performing Location LABORATORY [facility] - [address] [facility] [address]
--- OUTSIDE RECORDS SUMMARY | 2024-09-26 07:45 | External Medical Summary | Summary of Care ---
Author Name Unknown Organization [facility] Address [address] [place] [address] Phone [phone] Care Team Providers Care Refinery Operator Alkylation Name Role Phone Tenisha Gardner DO Primary Care Provider [phone] [phone] Reason for Visit * Reason Comments Healthy Beginnings Return Encounter Details Date Type Department Care Team (Late st Contact Info) Description 07/22/2024 11:30 AM EST Office Visit Gynecology/Obstetri ender Simon [address] [facility] [place] [address] Gerri Goodman PA-C [address] [place] [address] Nurse Alfred Healthy Beginnings Return Annika [address] [facility] [address] Supervision of other normal , antepartum*; Class 1 obesity due to excess calories in adult, unspecified BMI, unspecified whether serious comorbidity present Allergies Active Allergy Reactions Criticality Noted Date Comments Dust Mite Extract 02/08/2008 Penicillins 02/25/2010 documented as of this encounter (statuses as of 07/22/2024) Medications Acetaminophen 325 MG Oral Tablet (Tylenol) Take 1 Tablet by mouth every 6 hours as needed. Active Adult Gummy/DHA/FA 0.4-25 MG Oral Tablet Chewable Take by mouth. Active hydrOXYzine Pamoate 25 MG Oral Capsule 1-2 TABLETS 30- 60 MIN BEFORE BED 30 Capsule Active Melatonin 10 MG Oral Capsule Take 5 mg by mouth as needed (insomnia). 07/23/19 Discontinu ed(Medicat ion List Clean Up) Unisom PM Pain 50-325 MG Oral Tablet (diphenhydrAMIN E-APAP (sleep)) Take by mouth. 07/23/19 Discontinu ed(Medicat ion List Clean Up) Zolpidem Tartrate 5 MG Oral Tablet (Ambien)Indicat ions:Other insomnia Take 1 Tablet by mouth at bedtime as needed for Sleep. 5 Tablet 5 07/23/19 Discontinu ed(Medicat ion List Clean Up) Hospital, Clinic, or Other Facility Administered Medication Ordered Dose Route Frequency Start Date End Date Status Albuterol Sulfate (Proventil) (2.5 MG/3ML) 0.083% inhalation solution 2.5 mgIndications:Tobacco abuse 2.5 mg NEBULIZER ONCE PRN 12/19/2023 12/18/2024 Active documented as of this encounter (statuses as of 07/22/2024) Active Problems Problem Noted Date Diagnosed Date 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 07/10/2024 Supervision of other normal , antepartu m 04/15/2024 Class 1 obesity due to excess calories in adult 03/19/2024 Obesity in , antepartum 02/20/2024 Health counseling 02/20/2024 Overview (07/05/2024): Problem Action Taken Date entered Entered by Date resolved Need for food assistance referred to [facility] and local food [place] 02/20/2024 Laurie Chaudhari RN 02/20/2024 Problem Action [...] as of this encounter (statuses as of 07/22/2024) Resolved Problems Problem Noted Date Diagnosed Date Resolved Date Food insecurity 01/01/2024 05/06/2024 Overview: Per [facility] Protocol Encounter for supervision of other normal 09/26/2008 10/17/2008 Overview (09/22/2015): ICD-10 update of inactive term MA pending 03/18/2008 02/25/2010 Overview (08/01/2008): Enroll once active - enrolled documented as of this encounter (statuses as of 07/22/2024) Immunizations Name Administration Dates Next Due Hepatitis [...] money to get more. Never true 04/24/2024 [place] Depression Scale Answer Date Recorded [place] Depression Scale Total 9 02/20/2024 The thought [...] Sign Reading Time Taken Comments Blood Pressure 104/68 07/22/2024 11:31 AM EST Pulse - - Temperature - - Respiratory Rate - - Oxygen Saturation - - Inhaled Oxygen Concentration - - Weight 103.4 kg (228 lb) 07/22/2024 11:31 AM EST Height 160 cm (5' 3") 07/22/2024 11:31 AM EST Body Mass Index 40.39 07/22/2024 11:31 AM EST documented in this encounter Progress Notes * Gerri Goodman PA-C - 07/22/2024 12:03 PM EST 31w1d Saw PCP for insomnia issues following last visit. Doing much better. Denies concerns at present. Denies VB, LOF, contractions. Baby is active. RTC in 2 weeks Gerri Goodman PA-C documented in this encounter Nursing Notes * Yajaira Castro LPN - 07/22/2024 11:44 AM EST 31w1d Denies concerns Sleeping much better with hydroxyzine and magnesium. documented in this encounter Miscellaneous Notes * Assessment & Plan Note - Nila Sheldon RN - 07/22/2024 12:04 PM EST Associated Problem(s): Health counseling Problem Action Taken Date entered Entered by Date resolved Current needs or questions Patient denies having any current needs or questions 07/22/2024 Nila Sheldon RN 07/22/2024 documented in this encounter Plan of Treatment Upcoming Encounters Date Type Department Care Team (Late st Contact Info) Description 07/23/2024 1:30 PM EST Office Visit Dermatology [facility] [place] [address] [place] [address] Alba Juan PA-C [address] [facility] [place] [address] 08/07/2024 10:15 AM EDT Office Visit Gynecology/Obstetrics [facility] [address] [place] [address] Shantel Bowman CRNP [address] [place] [address] Nurse Alfred Healthy Beginnings Return [facility] [address] [place] [address] 08/14/2024 12:40 PM EDT Telemedicine Family Practice [facility] [address] [place] [address] Shantell Reilly CRNP [address] [place] [address] 12/19/2024 10:00 AM EDT Office Visit Family Practice [facility] [address] [place] [address] Tenisha Gardner DO [address] [place] [address] Health Maintenance Due Date Last Done Comments [...] documented as of this encounter Care Teams Refinery Operator Alkylation Relationship Specialty Start Date End Date Tenisha Gardner DO [address] [place] [address] PCP - General Family Medicine 12/19/23 documented as of this encounter
--- OUTSIDE RECORDS SUMMARY | 2024-09-26 07:45 | External Medical Summary ---
Author Name Unknown Address Unknown Organization K01:[place] [place] [address] [place] [address] Laboratory Report Ordering Provider Test Date Status IRASEMA PELAEZ 07/05/2024 12:11:16 Final Observation Date Value Abnormality Reference (Units ) Status Retic, % (auto) 07/05/2024 12:11:16 1.25 0.80-1.90 (%) Final Reticulocytes, Absolute 07/05/2024 12:11:16 47.1 31.3-100.1 (K/uL) Final Reticulocyte fraction, immature 07/05/2024 12:11:16 13.8 2.5-20.6 (%) Final Reticulocyte HGB 07/05/2024 12:11:16 34.1 29.7-37.4 (pg) Final Performing Location [facility] [place] [address] [place] [address]
--- OUTSIDE RECORDS SUMMARY | 2024-09-26 07:45 | External Medical Summary ---
Author Name Unknown Address Unknown Organization K01[place] [place] [address] [place] [address] Laboratory Report Ordering Provider Test Date Status IRASEMA PELAEZ 07/05/2024 12:11:16 Final Observation Date Value Abnormality Reference (Units ) Status Folic Acid 07/05/2024 12:11:16 >20.0 >4.5 (ng/ mL) Final Performing Location LAB[facility]ATORY [facility] - [address] [place] [address]
--- OUTSIDE RECORDS SUMMARY | 2024-09-26 07:45 | External Medical Summary | Summary of Care ---
Author Name Unknown Organization [facility] Address [address] [facility] [place] [address] Phone [phone] Care Team Providers Care Cutting And Printing Machine Operator Name Role Phone Tenisha Gardner DO Primary Care Provider [phone] Reason for Visit * Reason Comments Healthy Beginnings Return Encounter Details Date Type Department Care Team (Late st Contact Info) Description 07/05/2024 11:30 AM EST Office Visit Gynecology/Obstetri ender Simon [address] [place] [address] Gerri Goodman PA-C [address] [place] [address] Nurse Alfred Healthy Beginnings Return Annika [address] [place] [address] Supervision of other normal , antepartum*; Class 1 obesity due to excess calories in adult, unspecified BMI, unspecified whether serious comorbidity present; Need for yubtiskpdy-dxwawll-u ertussis (Tdap) vaccine; Other insomnia Allergies Active Allergy Reactions Criticality Noted Date Comments Dust Mite Extract 02/08/2008 Penicillins 02/25/2010 documented as of this encounter (statuses as of 07/05/2024) Medications Melatonin 10 MG Oral Capsule Take [...] needed for Sleep. 5 Tablet 07/05/2024 Active Hospital, Clinic, or Other Facility Administered Medication Ordered Dose Route Frequency Start Date End Date Status Albuterol Sulfate (Proventil) (2.5 MG/3ML) 0.083% inhalation solution 2.5 mgIndications:Tobacco abuse 2.5 mg NEBULIZER ONCE PRN 12/19/2023 12/18/2024 Active documented as of this encounter (statuses as of 07/05/2024) Active Problems Problem Noted Date Diagnosed Date Supervision of other normal , antepartu m 04/15/2024 Class 1 obesity due to excess calories in adult 03/19/2024 Obesity in , antepartum 02/20/2024 Health counseling 02/20/2024 Overview (07/05/2024): Problem Action Taken Date entered Entered by Date resolved Need for food assistance referred to [facility] and local food [place] 02/20/2024 Laurie Chaudhari RN 02/20/2024 Problem Action Taken Date entered Entered by Date resolved Nausea and vomiting due to Nutrition Review 9 months booklet 02/20/2024 Lauire Chaudhari RN 02/20/2024 Problem Action Taken Date [...] as of this encounter (statuses as of 07/05/2024) Resolved Problems Problem Noted Date Diagnosed Date Resolved Date Food insecurity 01/01/2024 05/06/2024 Overview: Per [facility] Protocol Encounter for supervision of other normal 09/26/2008 10/17/2008 Overview (09/22/2015): ICD-10 update of inactive term MA pending 03/18/2008 02/25/2010 Overview (08/01/2008): Enroll once active - enrolled documented as of this encounter (statuses as of 07/05/2024) Immunizations Name Administration Dates Next Due Hepatitis [...] money to get more. Never true 04/24/2024 [place] Depression Scale Answer Date Recorded [place] Depression Scale Total 9 02/20/2024 The thought [...] Sign Reading Time Taken Comments Blood Pressure 118/72 07/05/2024 11:40 AM EST Pulse - - Temperature - - Respiratory Rate - - Oxygen Saturation - - Inhaled Oxygen Concentration - - Weight 102.2 kg (225 lb 3.2 oz) 025 11:40 AM EST Height - - Body Mass Index 39.89 04/15/2024 1:10 PM EST documented in this encounter Progress Notes * Sunshine Gilliam CMA - 07/05/2024 12:28 PM EST Patient here for TDAP injection. Patient doing well no complaints. Injection given IM as ordered. Patient tolerated well. Patient to follow up as directed. Patient instructed to call if any complications. Patient verbalized understanding of instructions given and her follow up appt for PENNY Injection site: Left Deltoid Medication Source: Dispensed stock medication * Gerri Goodman PA-C - 07/05/2024 12:25 PM EST 28w5d First time meeting patient. Patient tearful upon rooming. States to nurse has not slept much at allin last few days. Struggling with insomnia. Has had prior to . Has been trying to manage with Unisom and Benadryl but not helping. Good sleep hygiene per patient. Trouble falling asleep. States will wake up, sometimes on back and cannot fall asleep until she feels baby. Worried about baby's movements. Long discussion with patient 30+ minutes. She was tearful at times during conversation.She does have history anxiety/depression. Has tried Buspar and Zoloft in past. Zoloft caused suicidal ideation when teen and she self admitted herself to hospital for this. Has not tried medication li ke it since. Would be willing to see PCP in follow up but states that she just needs something now.Worried that if she leaves office today and does not have anything to help her sleep that she is going to have episode of psychosis. Pt states this happened to her in past when she was awake for several days without sleeping. Pt states took Ambien inpatient and helped. Tolerated medication well. Ptstates had someone drive her to this appointment and someone will be picking her up as fearful she'd fall asleep at wheel. Has slept about 2-3 hours in last several days. Took THC gummy x 1 she admits just to sleep a little, but does not want to have to take this d/t risk of harm to baby. Discussed risk>benefits of medications in . Offered short course of Ambien over weekenduntil she can be seen back by PCP. Discussed Zolpidem crosses the placenta. Severe respiratory depression and sedation have been reported following maternal use late in the third trimester. Not near term. Short course. Given her concerns based on history benefits seem to out weigh risk at this time which she agreed. Will ensure childcare coordinated if she takes. Reviewed avoiding driving with medication. Having someone in home that can check on her during sleeping. She is also going to try Magnesium 400 mg daily. Given her adverse reaction to medication in past recommend she discuss anxiety medication with PCP further. Also recommended counseling and psychiatrist referral. She declines at this time, pt states does not have time to see these people. Would be willing to see family doctor given complexity and pre-existing condition that seems to have worsened in . Denies VB, LOF, contractions. Baby is active. Third tri labs and tdap today. RTC in 2 weeks Gerri Goodman PA-C * Sunshine Gilliam CMA - 07/05/2024 11:40 AM EST 28w5d + alecia tracey Struggling with insomnia. Melatonin and Unisom not working. documented in this encounter Nursing Notes * Laurie Chaudhari RN - 07/05/2024 12:06 PM EST Patient seen by [facility] Liner Machine Operator Helper. Patient denies any questions or concerns.would like tubal, consent signed. Has breast pump. Doing 3rd tri labs today. Laurie Chaudhari RN documented in this encounter Plan of Treatment Upcoming Encounters Date Type Department Care Team (Late st Contact Info) Description 07/10/2024 12:40 PM EST Telemedicine Family [address] [place] [address] Shantell Reilly CRNP [address] [place] [address] 07/22/2024 11:30 AM EST Office Visit Gynecology/Obstetrics [facility] [address] [place] [address] Gerri Goodman PA-C [address] [place] [address] SimonNurse sahil Healthy Beginnings Return [facility] [address] [place] [address] 12/19/2024 10:00 AM EDT Office Visit Family Practice [facility] [address] [place] [address] Tenisha Gardner DO [address] [place] [address] 12/26/2024 2:00 PM EDT [facility] [address] [facility] [place] [phone] Tenisha Castañeda PA-C [address] [place] [address] [place] [address] Health Maintenance Due Date Last Done Comments [...] unspecified BMI, unspecified whether serious comorbidity present Need for yoqvvoeunu-lyisnxy-rpmgpejzh (Tdap) vaccine Need for prophylactic vaccination with combined comnvcnzoa-wakgnai-fddvhdize (DTP) vaccine Other insomnia documented in this encounter Additional Health Concerns Active Problems Noted Date Diagnosed Date OB Reminders 02/20/2024 documented as of this encounter Care Teams Cutting And Printing Machine Operator Relationship Specialty Start Date End Date Tenisha Gardner DO [address] [place] [address] PCP - General Family Medicine 12/19/23 documented as of this encounter
--- OUTSIDE RECORDS SUMMARY | 2024-09-26 07:45 | External Medical Summary | Summary of Care ---
Author Name Unknown Organization [facility] Address [address] [place] [address] Phone [phone] Care Team Providers Care Chimney Supervisor Brick Name Role Phone Tenisha Gardner DO Primary Care Provider [phone] Reason for Visit * Reason Comments Outpatient Testing Encounter Details Date Type Department Care Team (Late st Contact Info) Description 07/05/2024 11:20 AM EST Laboratory Laboratory, [facility] [address] [place] [id number] [facility] [address] [place] [address] Supervision of other normal , antepartum Allergies [...] Unisom PM Pain 50-325 MG Oral Tablet (diphenhydrAMINE -APAP (sleep)) Take by mouth. Active Hospital, Clinic, or [...] money to get more. Never true 04/24/2024 [place] Depression Scale Answer Date Recorded [place] Depression Scale Total 9 02/20/2024 The thought [...] 07/10/2024 12:40 PM EST Telemedicine Family Practice [facility] [address] [place] [address] Shantell Reilly CRNP [address] [place] [address] 07/22/2024 11:30 AM EST Office Visit Gynecology/Obstetrics [facility] [address] [place] [address] Gerri Goodman PA-C [address] [place] [address] Nurse Alfred Healthy Beginnings Return [facility] [address] [place] [address] 12/19/2024 10:00 AM EDT Office Visit Family Practice [facility] [address] [place] [address] Tenisha Gardner DO [address] [place] [address] 12/26/2024 2:00 PM EDT [facility] [address] [facility] [place] [phone] Tenisha Castañeda PA-C [address] [place] [address] [place] [address] Pending Results Name Type Priority Associated Diagnoses Date /Time CBC WITH WBC DIFFERENTIAL AND ANEMIA REFLEX WORKUP Lab Routine Supervision of other normal , antepartum 07/05/2024 12:11 PM EST SYPHILIS ANTIBODY SCREEN WITH REFLEX TO RPR Lab Routine Supervision of other normal , antepartum 07/05/2024 12:11 PM EST ANEMIA CBC Lab Routine Supervision of other normal , antepartum 07/05/2024 12:11 PM EST DIFFERENTIAL, AUTOMATED Lab Routine Supervision of other normal , antepartum 07/05/2024 12:11 PM EST ANEMIA REFLEX CHEMISTRY HOLD Lab Routine Supervision of other normal , antepartum 07/05/2024 12:11 PM EST SYPHILIS ANTIBODY SCREEN Lab Routine Supervision of other normal , antepartum 07/05/2024 12:11 PM EST Health Maintenance Due Date Last Done Comments [...] Procedure Name Priority Date/Time Associated Diagnosis Comments 50-G GESTATIONAL GLUCOSE, 1 HOUR Routine 07/05/2024 12:11 PM EST Supervision of other normal , antepartum documented in this encounter Results * 50-G GESTATIONAL GLUCOSE, 1 HOUR (07/05/2024 12:11 PM EST) 50-g Gestational Glucose, 1 Hour 100 70 - 129 mg/dL 07/05/2024 1:29 PM EST LABORATORY [facility] 57-10 Blood Venous blood specimen / Unknown Venipuncture / Unknown 07/05/2024 12:11 PM EST 07/05/2024 12:11 PM EST us Shantel EUGENE LAB BLOOD ORDERABLES Final Re sult LABORATORY [facility] 57-10 [address] [place] [address] documented in this encounter Visit Diagnoses Diagnosis Encounter for supervision of other normal in second trimester- Primary related hip pain in second trimester, antepartum Supervision of other normal , antepartum documented in this encounter Additional Health Concerns Active Problems Noted Date Diagnosed Date OB Reminders 02/20/2024 documented as of this encounter Care Teams Chimney Supervisor Brick Relationship Specialty Start Date End Date Tenisha Gardner DO [address] [place] [address] PCP - General Family Medicine 12/19/23 documented as of this encounter
--- OUTSIDE RECORDS SUMMARY | 2024-09-26 07:45 | External Medical Summary ---
Author Name Unknown Address Unknown Organization K01:[facility] [place] [address] [place] [address] Laboratory Report Ordering Provider Test Date Status IRASEMA PELAEZ 07/05/2024 12:11:16 Final Observation Date Value Abnormality Reference (Units ) Status Treponema pallidum Ab [Presence] in Serum by Immunoassay 07/05/2024 12:11:16 Nonreactive Nonreactive Final No serologic evidence of syp hilis. No additional testing clinicially indicated at this time. Consider repeat testing in 2-4 weeks if acute or primary syphilis is suspected. Performing Location [facility] [place] [address] [place] [address]
--- OUTSIDE RECORDS SUMMARY | 2024-09-26 07:46 | External Medical Summary ---
Author Name Unknown Address Unknown Organization K01:LABORATORY [facility] - [address] [place] [address] Laboratory Report Ordering Provider Test Date Status BENIGNOIRASEMA 07/05/2024 12:11:16 Final Observation Date Value Abnormality Reference (Units ) Status TSH 07/05/2024 12:11:16 2.08 0.27-4.20 (uIU/mL) Final Performing Location LABORATORY [facility] - [address] [place] [address]
--- OUTSIDE RECORDS SUMMARY | 2024-09-26 07:46 | External Medical Summary | Summary of Care ---
Author Name Unknown Organization [facility] Address [address] [place] [address] Phone [phone] Care Team Providers Care Casting House Laborer Name Role Phone Tenisha Garnder DO Primary Care Provider Encounter Details Date Type Department Care Team (Late st Contact Info) Description 05/13/2024 Population Health External Data Unspecified Department Allergies Active Allergy Reactions Criticality Noted Date Comments Dust Mite Extract 02/08/2008 Penicillins 02/25/2010 documented as of this encounter (statuses as of 05/13/2024) Medications Melatonin 10 MG Oral Capsule Take [...] as of this encounter (statuses as of 05/13/2024) Active Problems Problem Noted Date Diagnosed Date Supervision of other normal , antepartu m 04/15/2024 Class 1 obesity due to excess calories in adult 03/19/2024 Obesity in , antepartum 02/20/2024 Health counseling 02/20/2024 Overview (05/07/2024): Problem Action Taken Date entered Entered by [...] or questions 05/07/2024 Nila Sheldon RN 05/07/2024 Assessment & Plan (04/15/2024 1:56 PM EST): [...] as of this encounter (statuses as of 05/13/2024) Resolved Problems Problem Noted Date Diagnosed Date Resolved Date Food insecurity 01/01/2024 05/06/2024 Overview: Per [facility] Protocol Encounter for supervision of other normal 09/26/2008 10/17/2008 Overview (09/22/2015): ICD-10 update of inactive term MA pending 03/18/2008 02/25/2010 Overview (08/01/2008): Enroll once active - enrolled documented as of this encounter (statuses as of 05/13/2024) Immunizations Name Administration Dates Next Due Hepatitis B, 20+ yrs 08/04/2016 MMR - Measles/Mumps/Rubella Vaccine 08/04/2016 Seasonal Influenza Virus Vac cine, Unspecified Formulation 11/04/2016 Seasonal Influenza, Trivalent, (IIV3), PF, (Fluz one) 01/25/2024 TDAP (age 10 and older)(Boostrix) 08/04/2016 TDAP, Age 7 and older, IM (Adacel) 10/29/2013 Varicella Vaccine (Chicken Pox) 08/04/2016 documented as [...] money to get more. Never true 04/24/2024 [place] Depression Scale Answer Date Recorded [place] Depression Scale Total 9 02/20/2024 The thought [...] ages 0-17 years) Not on file 04/24/2024 Estimated Date of Delivery Comme nts [...] Care Team (Late st Contact Info) Description 05/21/2024 9:45 AM EST Imaging Radiology [facility] [address] [facility] [place] [address] [place] [address] 06/05/2024 10:30 AM EST Office Visit Gynecology/Obstetrics [facility] [address] [place] [address] Shantel Bowman CRNP [address] [place] [address] Nurse Alfred [facility] Return [facility] [address] [place] [address] 07/01/2024 10:00 AM EST Office Visit Dermatology [address] [place] [address] Tenisha Castañeda PA-C [address] [place] [address] [place] [address] 12/19/2024 10:00 AM EDT Office Visit Family Practice [facility] [address] [place] [address] Tenisha Gardner DO [address] [place] [address] Health Maintenance Due Date Last Done Comments Depression Screening 2001 Pneumococcal Vaccine: Pediatrics (0 to 5 Years) and At-Risk Patients (6 to 64 Years) (1 of 2 - PCV) 2008 Hepatitis B Vaccine (2 of 3 - 19+ 3-dose series) 09/01/2016 08/04/2016 COVID-19 Vaccine (2 - 2023-2 5 season) 2024 12/27/2020 DTap/Tdap Vaccines (3 - Td o r Tdap) 08/04/2026 08/04/2016, 10/29/2013 Diabetes Screening 12/18/2026 12/19/2023 Pap Smear 02/19/2027 02/20/2024, 02/25/2010, 02/08/2008 Cervical Cancer Screening 02/19/2029 HPV/Co-Test 02/19/2029 02/20/2024 Influenza Vaccine (FLU shot) Completed 09/2023, 11/04/2016 HPV (Gardasil) Vaccine Aged Out No lo nger eligible based on patient's age to complete this topic MENINGOCOCCAL (MENACTRA/MENVEO) Aged Out No longer eligible b ased on patient's age to complete this topic documented as of this encounter Goals Goal Patient Goal Type Associated Problems Recent Progress Patient-Stated? Author Reminders Care Plan OB Reminders No Dickhart, Provider documented as of this encounter Medical Devices Not on filedocumented as of this encounter Additional Health Concerns Active Problems Noted Date Diagnosed Date OB Reminders 02/20/2024 documented as of this encounter Care Teams Casting House Laborer Relationship Specialty Start Date End Date Tenisha Gardner DO [address] [place] [address] PCP - General Family Medicine 12/19/23 documented as of this encounter
--- OUTSIDE RECORDS SUMMARY | 2024-09-26 07:46 | External Medical Summary | Summary of Care ---
Author Name Unknown Organization [facility] Address [address] [place] [address] Phone [phone] Care Team Providers Care Reducing Machine Operator Name Role Phone Tenisha Gardner DO Primary Care Provider [phone] [phone] Reason for Visit * Reason Comments [facility] Return Encounter Details Date Type Department Care Team (Late st Contact Info) Description 06/05/2024 10:30 AM EST Office Visit Gynecology/Obstetri ender Simon [address] [facility] [address] Shantel Bowman CRNP [address] [facility] [place] [address] Nurse Alfred [facility] Return Annika [address] [facility] [place] [address] Supervision of other normal , antepartum*; Class 1 obesity due to excess calories with serious comorbidity in adult, unspecified BMI Allergies Active Allergy Reactions Criticality Noted Date Comments Dust Mite Extract 02/08/2008 Penicillins 02/25/2010 documented as of this encounter (statuses as of 06/05/2024) Medications Melatonin 10 MG Oral Capsule Take [...] as of this encounter (statuses as of 06/05/2024) Active Problems Problem Noted Date Diagnosed Date Supervision of other normal , antepartu m 04/15/2024 Class 1 obesity due to excess calories in adult 03/19/2024 Obesity in , antepartum 02/20/2024 Health counseling 02/20/2024 Overview (05/07/2024): Problem Action Taken Date entered Entered by Date resolved Need for food assistance referred to [facility] and local [employer] 02/20/2024 Laurie Chaudhari RN 02/20/2024 Problem Action [...] as of this encounter (statuses as of 06/05/2024) Resolved Problems Problem Noted Date Diagnosed Date Resolved Date Food insecurity 01/01/2024 05/06/2024 Overview: Per [facility] Protocol Encounter for supervision of other normal 09/26/2008 10/17/2008 Overview (09/22/2015): ICD-10 update of inactive term MA pending 03/18/2008 02/25/2010 Overview (08/01/2008): Enroll once active - enrolled documented as of this encounter (statuses as of 06/05/2024) Immunizations Name Administration Dates Next Due Hepatitis [...] money to get more. Never true 04/24/2024 [place] Depression Scale Answer Date Recorded [place] Depression Scale Total 9 02/20/2024 The thought [...] Sign Reading Time Taken Comments Blood Pressure 116/68 06/05/2024 10:43 AM EST Pulse - - Temperature - - Respiratory Rate - - Oxygen Saturation - - Inhaled Oxygen Concentration - - Weight 101.1 kg (222 lb 12.8 oz) 2024 10:43 AM EST Height - - Body Mass Index 39.47 04/15/2024 1:10 PM EST documented in this encounter Progress Notes * Shantel Bowman CRNP - 06/05/2024 11:02 AM EST 24w3d Noticed a bump on her pantyline a few days ago, somewhat tender from underwear rubbing. Appearance of an ingrown hair. No other concerns. Baby is active, no contractions, bleeding, LOF. Glucola with next visit. VALORIE Jade * Sunshine Gilliam CMA - 06/05/2024 10:43 AM EST 24w3d Does have a "bump" on underwear line. documented in this encounter Plan of Treatment Upcoming Encounters Date Type Department Care Team (Late st Contact Info) Description 07/01/2024 10:00 AM EST Office Visit Dermatology [place] [place] [place] [address] Tenisha Castañeda PA-C [address] [place] [address] [place] [address] 12/19/2024 10:00 AM EDT Office Visit [facility] [address] [place] [address] Tenisha Gardner, [address] [place] [address] Scheduled Orders Name Type Priority Associated Diagnoses Orde r Schedule 50-G GESTATIONAL GLUCOSE, 1 HOUR Lab Routine Supervision of other normal , antepartum Expected: 07/01/2024 (Approximate), Expires: 06/05/2025 CBC WITH WBC DIFFERENTIAL AND ANEMIA REFLEX WORKUP Lab Routine Supervision of other normal , antepartum Expected: 07/01/2024 (Approximate), Expires: 06/05/2025 SYPHILIS ANTIBODY SCREEN WITH REFLEX TO RPR Lab Routine Supervision of other normal , antepartum Expected: 07/01/2024 (Approximate), Expires: 06/05/2025 Health Maintenance Due Date Last Done Comments [...] documented as of this encounter Care Teams Reducing Machine Operator Relationship Specialty Start Date End Date Tenisha Gardner DO [address] [place] [address] PCP - General Family Medicine 12/19/23 documented as of this encounter
--- OUTSIDE RECORDS SUMMARY | 2024-09-26 07:46 | External Medical Summary ---
Author Name Unknown Address Unknown Organization [id number]:[facility] [address] [place] [address] Laboratory Report Ordering Provider Test Date Status JAVIER PELAEZOMAR 07/05/2024 12:11:16 Final Observation Date Value Abnormality Reference (Units ) Status Glucose [Moles/volume] in Serum or Plasma --1 hour post 50 g glucose PO 07/05/2024 12:11:16 100 70-129 (mg/dL) Final Performing Location [facility] [address] [place] [address]
--- OUTSIDE RECORDS SUMMARY | 2024-09-26 07:46 | External Medical Summary ---
Author Name Unknown Address Unknown Organization [id number]:[facility] - [address] [place] [address] Laboratory Report Ordering Provider Test Date Status IRASEMA PELAEZ 07/05/2024 12:11:16 Final Observation Date Value Abnormality Reference (Units ) Status Vitamin B12 07/05/2024 12:11:16 343 649-1234 (pg/mL) Final Performing Location [facility] - [address] [place] [address]
--- OUTSIDE RECORDS SUMMARY | 2024-09-26 07:46 | External Medical Summary ---
Author Name Unknown Address Unknown Organization K01:[facility] - [address] [place] [address] Laboratory Report Ordering Provider Test Date Status IRASEMA PELAEZ 07/05/2024 12:11:16 Final Observation Date Value Abnormality Reference (Units ) Status Ferritin 07/05/2024 12:11:16 35 13-150 (ng /mL) Final Performing Location [facility] - [address] [place] [address]
--- OUTSIDE RECORDS SUMMARY | 2024-09-26 07:46 | External Medical Summary | Summary of Care ---
Author Name Unknown Organization [facility] Address [address] [place] [address] Phone [phone] Care Team Providers Care Data Recovery Planner Name Role Phone Tenisha Gardner DO Primary Care Provider [phone] Reason for Visit * Reason Comments [facility] Return Encounter Details Date Type Department Care Team (Late st Contact Info) Description 06/05/2024 10:30 AM EST Office Visit Gynecology/Obstetri ender Simon [address] [address] Shantel Bowman CRNP [address] [address] Nurse Alfred [facility] Return Annika [address] [facility] [place] [address] Supervision of other normal , antepartum*; Class [...] , antepartum 02/20/2024 Health counseling 02/20/2024 Overview (06/05/2024): Problem Action Taken Date entered Entered by Date resolved Need for food assistance referred to [facility] and local [employer] 02/20/2024 Laurie Chaudhari RN 02/20/2024 Problem Action [...] or questions 06/05/2024 Laurie Chaudhari RN 06/05/2024 Assessment & Plan (04/15/2024 1:56 PM EST): [...] money to get more. Never true 04/24/2024 [place] Depression Scale Answer Date Recorded [place] Depression Scale Total 9 02/20/2024 The thought [...] on underwear line. documented in this encounter Nursing Notes * Laurie Chaudhari RN - 06/05/2024 3:41 PM EST Patient seen by [facility] Wafer Fab Technician. Patient denies any questions or concerns. Laurie Chaudhari RN documented in this encounter Plan of Treatment Upcoming Encounters Date Type Department Care Team (Late st Contact Info) Description 07/01/2024 10:00 AM EST Office Visit Dermatology [address] [place] [address] Tenisha Castañeda PA-C [address] [place] [address] [place] [address] 07/05/2024 11:20 AM EST Laboratory Laboratory, [facility] [address] [place] [address] Michael Simon [facility] [address] [place] [address] 07/05/2024 11:30 AM EST Office Visit Gynecology/Obstetrics [place] [address] [place] [address] Gerri Goodman PA-C [address] [place] [address] Nurse Alfred [facility] Return [facility] [address] [place] [address] 12/19/2024 10:00 AM EDT Office Visit Family Practice [facility] [address] [place] [address] Tenisha Gardner DO [address] [place] [address] Scheduled Orders Name Type Priority Associated Diagnoses [...] documented as of this encounter Care Teams Data Recovery Planner Relationship Specialty Start Date End Date Tenisha Gardner DO [address] [place] [address] PCP - General Family Medicine 12/19/23 documented as of this encounter
--- OUTSIDE RECORDS SUMMARY | 2024-09-26 07:46 | External Medical Summary | Summary of Care ---
Author Name Unknown Organization [facility] Address [address] [place] [address] Phone [phone] Care Team Providers Care Plastic Straightening Roll Operator Name Role Phone Tenisha Gardner DO Primary Care Provider Encounter Details Date Type Department Care Team (Late st Contact Info) Description 06/10/2024 Population Health External Data Unspecified Department Allergies Active Allergy Reactions Criticality Noted Date Comments Dust Mite Extract 02/08/2008 Penicillins 02/25/2010 documented as of this encounter (statuses as of 06/10/2024) Medications Melatonin 10 MG Oral Capsule Take [...] as of this encounter (statuses as of 06/10/2024) Active Problems Problem Noted Date Diagnosed Date [...] as of this encounter (statuses as of 06/10/2024) Resolved Problems Problem Noted Date Diagnosed Date Resolved Date Food insecurity 01/01/2024 05/06/2024 Overview: Per [facility] Protocol Encounter for supervision of other normal 09/26/2008 10/17/2008 Overview (09/22/2015): ICD-10 update of inactive term MA pending 03/18/2008 02/25/2010 Overview (08/01/2008): Enroll once active - enrolled documented as of this encounter (statuses as of 06/10/2024) Immunizations Name Administration Dates Next Due Hepatitis [...] money to get more. Never true 04/24/2024 [place] Depression Scale Answer Date Recorded [place] Depression Scale Total 9 02/20/2024 The thought [...] 07/01/2024 10:00 AM EST Office Visit Dermatology [address] [place] [address] Tenisha Castañeda PA-C [address] [place] [address] [place] [address] 07/05/2024 11:20 AM EST Laboratory Laboratory, [facility] [address] [place] [phone] Michael Simon [facility] [address] [place] [address] 07/05/2024 11:30 AM EST Office Visit Gynecology/Obstetrics [facility] [address] [place] [address] Gerri Goodman PA-C [address] [place] [address] Nurse Alfred [facility] Return [facility] [address] [place] [address] 12/19/2024 10:00 AM EDT Office Visit Family Practice [facility] [address] [place] [address] Tenisha Gardner DO [address] [place] [address] Health Maintenance Due Date Last Done Comments [...] documented as of this encounter Care Teams Plastic Straightening Roll Operator Relationship Specialty Start Date End Date Tenisha Gardner DO [address] [place] [address] PCP - General Family Medicine 12/19/23 documented as of this encounter
--- OUTSIDE RECORDS SUMMARY | 2024-09-26 07:47 | External Medical Summary | Summary of Care ---
Author Name Unknown Organization [facility] Address [address] [place] [address] Phone [phone] Care Team Providers Care Currency Examiner Name Role Phone Tenisha Gardner DO Primary Care Provider [phone] Reason for Visit * Reason Comments [facility] Return Encounter Details Date Type Department Care Team (Late st Contact Info) Description 05/07/2024 2:00 PM EST Office Visit Gynecology/Obstetri ender Simon [address] [facility] [place] [address] Shantel Bowman CRNP [address] [place] [address] Nurse Alfred [facility] Return Annika [address] [facility] [place] [address] Supervision of other normal , antepartum*; Class 1 obesity due to excess calories with serious comorbidity in adult, unspecified BMI Allergies Active Allergy Reactions Criticality Noted Date Comments Dust Mite Extract 02/08/2008 Penicillins 02/25/2010 documented as of this encounter (statuses as of 05/07/2024) Medications Melatonin 10 MG Oral Capsule Take [...] as of this encounter (statuses as of 05/07/2024) Active Problems Problem Noted Date Diagnosed Date Supervision of other normal , antepartu m 04/15/2024 Class 1 obesity due to excess calories in adult 03/19/2024 Obesity in , antepartum 02/20/2024 Health counseling 02/20/2024 Overview (05/07/2024): Problem Action Taken Date entered Entered by Date resolved Need for food assistance referred to [facility] and [facility] 02/20/2024 Laurie Chaudhari RN 02/20/2024 Problem Action [...] as of this encounter (statuses as of 05/07/2024) Resolved Problems Problem Noted Date Diagnosed Date Resolved Date Food insecurity 01/01/2024 05/06/2024 Overview: Per [facility] Protocol Encounter for supervision of other normal 09/26/2008 10/17/2008 Overview (09/22/2015): ICD-10 update of inactive term MA pending 03/18/2008 02/25/2010 Overview (08/01/2008): Enroll once active - enrolled documented as of this encounter (statuses as of 05/07/2024) Immunizations Name Administration Dates Next Due Hepatitis [...] money to get more. Never true 04/24/2024 [place] Depression Scale Answer Date Recorded [place] Depression Scale Total 9 02/20/2024 The thought [...] Reading Time Taken Comments Blood Pressure 118/72 05/07/2024 1:52 PM EST Pulse - - Temperature - - Respiratory Rate - - Oxygen Saturation - - Inhaled Oxygen Concentration - - Weight 98.6 kg (217 lb 6.4 oz) 05/07/2024 1:52 P M EST Height - - Body Mass Index 38.51 04/15/2024 1:10 PM EST documented in this encounter Progress Notes * Shantel Bowman CRNP - 05/07/2024 2:13 PM EST 20w2d Normal aches and pains of . Feeling FM. Anatomy u/s today, report pending. May need additional views. VALORIE Jade * Sunshine Gilliam CMA - 05/07/2024 1:52 PM EST 20w2d Denies any concerns documented in this encounter Nursing Notes * Nila Sheldon RN - 05/07/2024 2:05 PM EST Patient seen by [facility] Field Sales Manager. documented in this encounter Plan of Treatment Upcoming Encounters Date Type Department Care Team (Late st Contact Info) Description 06/05/2024 10:45 AM EST Office Visit Gynecology/Obstetrics [facility] [address] [place] [address] Shantel Bowman CRNP [address] [place] [address] 07/01/2024 10:00 AM EST Office Visit Dermatology [address] [place] [address] Tenisha Castañeda PA-C [address] [place] [address] [place] [address] 12/19/2024 10:00 AM EDT Office Visit Family Practice [facility] [address] [place] [address] Tenisha Gardner DO [address] [place] [address] Health Maintenance Due Date Last Done Comments Pneumococcal Vaccine: Pediatrics (0 to 5 Years) and At-Risk Patients (6 to 64 Years) (1 of 2 - PCV) 1995 Depression Screening 2001 Hepatitis B Vaccine (2 of 3 - [...] documented as of this encounter Care Teams Currency Examiner Relationship Specialty Start Date End Date Tenisha Gardner DO [address] [place] [address] PCP - General Family Medicine 12/19/23 documented as of this encounter
--- OUTSIDE RECORDS SUMMARY | 2024-09-26 07:47 | External Medical Summary | Summary of Care ---
Author Name Unknown Organization [facility] Address [address] [place] [address] Phone [phone] Care Team Providers Care Mold Making Plastics Sheets Supervisor Name Role Phone Tenisha Gardner DO Primary Care Provider [phone] Reason for Referral * Evaluate & Treat - Unlimited Visits (Within 10 days (routine)) - Authorized Specialty Diagnoses / Procedures Referred By Gatito stoner Referred To Contact Chiropractor Diagnoses related hip pain in second trimester, antepartum Shantel Bowman CRNP [address] [place] [address] Phone: tel: fax: Referral ID Status Reason Start Date Expiration Date Visits Requested Visits Authorized [id number] Authorized Specialty Services Required 4 [phone] Question Answer Referral Priority Within 10 days (routine) Where should this appointment be scheduled? External Comments Hip pain in Reason for Visit * Reason Comments [facility] Return Encounter Details Date Type Department Care Team (Late st Contact Info) Description 04/15/2024 1:15 PM EST Office Visit Gynecology/Obstetri ender Simon [address] [place] [address] Shantel Bowman CRNP [address] [place] [address] Nurse Alfred [facility] Return Annika [address] [place] [address] Encounter for supervision of other normal in second trimester*; related hip pain in second trimester, antepartum Allergies Active Allergy Reactions Criticality Noted Date Comments Dust Mite Extract 02/08/2008 Penicillins 02/25/2010 documented as of this encounter (statuses as of 04/15/2024) Medications Melatonin 10 MG Oral Capsule Take [...] as of this encounter (statuses as of 04/15/2024) Active Problems Problem Noted Date Diagnosed Date Supervision of other normal , antepartu m 04/15/2024 Class 1 obesity due to excess calories in adult 03/19/2024 Obesity in , antepartum 02/20/2024 Health counseling 02/20/2024 Overview (04/15/2024): Problem Action Taken Date entered Entered by Date resolved Need for food assistance referred to [facility] and local food [place] 02/20/2024 Laurie [...] or questions 03/19/2024 Laurie Chaudhari RN 03/19/2024 Assessment & Plan (04/15/2024 1:56 PM EST): Problem Action Taken Date entered Entered by Date resolved Current needs or questions Patient denies having any current needs or questions 04/15/2024 Nila Sheldon RN 04/15/2024 Food insecurity 01/01/2024 Overview: Per [facility] Protocol Other specified chlamydial i nfection, in conditions [...] as of this encounter (statuses as of 04/15/2024) Resolved Problems Problem Noted Date Diagnosed Date Resolved Date Encounter for supervision of other normal 09/26/2008 10/17/2008 Overview (09/22/2015): ICD-10 update of inactive term MA pending 03/18/2008 02/25/2010 Overview (08/01/2008): Enroll once active - enrolled documented as of this encounter (statuses as of 04/15/2024) Immunizations Name Administration Dates Next Due Hepatitis [...] you got the money to buy more. Sometimes true Within the past 12 months, t he food you bought just didn't last and you didn't have money to get more. Sometimes true [place] Depression Scale Answer Date Recorded [place] Depression Scale Total 9 02/20/2024 The thought of harming myself has occurred to me . Never 02/20/2024 Childcare Answer Date Recorded Do you feel overwhelmed with taking care of a child, family member or friend? No 12/05/2023 Does your family need help f inding childcare? (Household - for ages 0-17 years) Not on file 12/05/2023 Clothing Answer Date Recorded Have you been unable to get clothing when it was really needed? Yes 12/05/2023 Is your family able to get c lothes or diapers when needed? (Household - for ages 0-17 years) Not on file 12/05/2023 Personal Safety Answer Date Recorded Do you feel unsafe or have concerns for your saf ety? No 12/05/2023 Do you have concerns for you r family's safety? (Household - for ages 0-17 years) Not on file 12/05/2023 Utilities Answer Date Recorded Do you have trouble paying y our heating, water, or electric bill? Yes 12/05/2023 Is your family able to pay t he heat, water, or electric bill? (Household - for ages 0-17 years) Not on file 12/05/2023 Does your family have access to good internet? (Household - for ages 0-17 years) Not on file 12/05/2023 Employment Status Answer Date Recorded Are you unemployed or without regular income? Ye s 12/05/2023 Does the household have a re gular source of income? (Household - for ages 0-17 years) Not on file 12/05/2023 Social Connections Answer Date Recorded How often do you feel lonely or isolated from th ose around you? Rarely 12/05/2023 Financial Resource Strain Answer Date R ecorded Do you have any trouble payi ng for your medications, or do you think you might in the future? Yes 12/05/2023 Does your family have troubl e paying for medicine? (Household - for ages 0-17 years) Not on file 12/05/2023 Transportation Needs Answer Date Record ed Do you have trouble getting a ride to medical visits or work? (Adult - for ages 18 years and over) Not on file 12/05/2023 Does your family have a hard time getting a ride to doctors visits? (Household - for ages 0-17 years) Not on file 12/05/2023 Has lack of transportation k ept you from medical appointments, meetings, work, or from getting things needed for daily living? Check all that apply. Yes, it has kept me from non-medical meetings, appointments, work, or from getting things that I need 12/05/2023 Do you (or your family) have trouble finding or paying for a ride (transportation)? (Household - for ages 0-17 years) Not on file 12/05/2023 Housing Stability Answer Date Recorded Do you currently live in a s helter or have no steady place to sleep at night? No 12/05/2023 Do you think you are at risk of becoming homeless? (Adult - for ages 18 years and over) Not on file 12/05/2023 Does your family worry about paying for your home or becoming homeless? (Household - for ages 0-17 years) Not on file 0 12/05/2023 Are you homeless or worried that you might be in the future? No 12/05/2023 Are you (or your family) armando eless or worried that you might be in the future? (Household - for ages 0-17 years) Not on file Food Insecurity Answer Date Recorded Do you need food for this week? No 12/05/2023 Are you able to get enough f ood for your family? (Household - for ages 0-17 years) Not on file 12/05/2023 Does your family need food t his week? (Household - for ages 0-17 years) Not on file 12/05/2023 Do you always have enough fo od for your family? (Household - for ages 0-17 years) Not on file 12/05/2023 Estimated Date of Delivery Comme nts Yes [...] Sign Reading Time Taken Comments Blood Pressure 116/70 04/15/2024 1:10 PM EST Pulse - - Temperature - - Respiratory Rate - - Oxygen Saturation - - Inhaled Oxygen Concentration - - Weight 97.1 kg (214 lb) 04/15/2024 1:10 PM EST Height 160 cm (5' 3") 04/15/2024 1:10 PM EST Body Mass Index 37.91 04/15/2024 1:10 PM EST documented in this encounter Progress Notes * Shantel Bowman CRNP - 04/15/2024 1:41 PM EST 17w1d C/o hip pain and carpal tunnel. Suggested chiropractor. No other concerns. N/v nearly resolved. +FM. No bleeding. Anatomy u/s in 3-4 weeks. VALORIE Jade documented in this encounter Nursing Notes * Yajaira Castro LPN - 04/15/2024 1:16 PM EST 17w1d Choline supplement? documented in this encounter Miscellaneous Notes * Assessment & Plan Note - Nila Sheldon RN - 04/15/2024 1:56 PM EST Associated Problem(s): Health counseling Problem Action Taken Date entered Entered by Date resolved Current needs or questions Patient denies having any current needs or questions 04/15/2024 Nila Sheldon RN 04/15/2024 documented in this encounter Plan of Treatment Upcoming Encounters Date Type Department Care Team (Late st Contact Info) Description 05/07/2024 12:30 PM EST Imaging Radiology [facility] 2nd [facility] [address] [facility] [place] [address] 05/07/2024 2:00 PM EST Office Visit Gynecology/Obstetrics [facility] [address] [facility] [place] [address] Shantel Bowman CRNP [address] [place] [address] Nurse Alfred [facility] Beginnings Return [facility] [address] [facility] [place] [address] 07/23/2024 1:00 PM EST Office Visit [address] [place] [phone] Tenisha Castañeda PA-C [address] [place] [address] [place] [address] 12/19/2024 10:00 AM EDT Office Visit Family Practice [facility] [address] [place] [address] Tenisha Gardner DO [address] [place] [address] Scheduled Referrals Name Type Priority Associated Diagnoses Order Schedule CHIROPRACTOR REFERRAL OP Referral Within 10 days (routine) related hip pain in second trimester, antepartum Ordered: 04/15/2024 Health Maintenance Due Date Last Done Comments Pneumococcal Vaccine: Pediatrics (0 to 5 Years) and At-Risk Patients (6 to 64 Years) (1 of 2 - PCV) 1995 Depression Screening 2001 Hepatitis B Vaccine (2 of 3 - 19+ 3-dose series) 09/01/2016 08/04/2016 COVID-19 Vaccine (2 - 2023-2 5 season) 2024 12/27/2020 DTap/Tdap Vaccines (3 - Td o r Tdap) 08/04/2026 08/04/2016, 10/29/2013 Pap Smear 02/19/2027 02/20/2024, 02/25/2010, 02/08/2008 Cervical [...] related hip pain in second trimester, antepartum documented in this encounter Additional Health Concerns Active Problems Noted Date Diagnosed Date OB Reminders 02/20/2024 documented as of this encounter Care Teams Mold Making Plastics Sheets Supervisor Relationship Specialty Start Date End Date Tenisha Gardner DO [address] [place] [address] PCP - General Family Medicine 12/19/23 documented as of this encounter
--- OUTSIDE RECORDS SUMMARY | 2024-09-26 07:47 | External Medical Summary | Summary of Care ---
Author Name Unknown Organization [facility] Address [address] [place] [address] Phone [phone] Care Team Providers Care Grades 7 8 Tutor Name Role Phone Tenisha Gardner DO Primary Care Provider [phone] Reason for Referral * Evaluate & Treat - Unlimited Visits (Within 10 days (routine)) - Authorized Specialty Diagnoses / Procedures Referred By Gatito stoner Referred To Contact Chiropractor Diagnoses related hip pain in second trimester, antepartum Shantel Bowman CRNP [address] [place] [address] Phone: tel: fax: Referral ID Status Reason Start Date Expiration Date Visits Requested Visits Authorized [id number] Authorized Specialty Services Required 4 [phone] Question Answer Referral Priority Within 10 days (routine) Where should this appointment be scheduled? External Comments Hip pain in Reason for Visit * Reason Comments [facility] Return Encounter Details Date Type Department Care Team (Late st Contact Info) Description 04/15/2024 1:15 PM EST Office Visit Gynecology/Obstetri ender [facility] [address] [place] [address] Shantel Bowman CRNP [address] [place] [address] Nurse Alfred [facility] Return Annika [address] [place] [address] Encounter for supervision of other normal in [...] resolved Need for food assistance referred to [facility] and local food [place] 02/20/2024 Laurie Chaudhari [...] have money to get more. Sometimes true [place] Depression Scale Answer Date Recorded [place] Depression Scale Total 9 02/20/2024 The thought [...] Description 05/07/2024 12:30 PM EST Imaging Radiology [facility] 2nd [facility] [address] [facility] [place] [address] 05/07/2024 2:00 PM EST Office Visit Gynecology/Obstetrics [facility] [address] [facility] [place] [address] Shantel Bowman CRNP [address] [place] [address] Nurse Alfred [facility] Beginnings Return [facility] [address] [facility] [place] [address] 07/23/2024 1:00 PM EST Office Visit [address] [place] [phone] Tenisha Castañeda PA-C [address] [place] [address] [place] [address] 12/19/2024 10:00 AM EDT Office Visit Family Practice [facility] [address] [place] [address] Tenisha Gardner DO [address] [place] [address] Scheduled Referrals Name Type Priority Associated Diagnoses [...] documented as of this encounter Care Teams Grades 7 8 Tutor Relationship Specialty Start Date End Date Tenisha Gardner DO [address] [place] [address] PCP - General Family Medicine 12/19/23 documented as of this encounter
--- OUTSIDE RECORDS SUMMARY | 2024-09-26 07:47 | External Medical Summary | Summary of Care ---
Author Name Unknown Organization [facility] Address [address] [place] [address] Phone [phone] Care Team Providers Care Reefer Truck Driver Name Role Phone Tenisha Gardner DO Primary Care Provider Encounter Details Date Type Department Care Team (Late st Contact Info) Description 2024 Population Health External Data Unspecified Department Allergies Active Allergy Reactions Criticality Noted Date Comments Dust Mite Extract 02/08/2008 Penicillins 02/25/2010 documented as of this encounter (statuses as of 2024) Medications Melatonin 10 MG Oral Capsule Take [...] as of this encounter (statuses as of 2024) Active Problems Problem Noted Date Diagnosed Date Supervision of other normal , antepartu m 04/15/2024 Class 1 obesity due to excess calories in adult 03/19/2024 Obesity in , antepartum 02/20/2024 Health counseling 02/20/2024 Overview (04/15/2024): Problem Action Taken Date entered Entered by Date resolved Need for food assistance referred to [facility] and local food [place] 02/20/2024 Laurie Chaudhari [...] as of this encounter (statuses as of 2024) Resolved Problems Problem Noted Date Diagnosed Date Resolved Date Encounter for supervision of other normal 09/26/2008 10/17/2008 Overview (09/22/2015): ICD-10 update of inactive term MA pending 03/18/2008 02/25/2010 Overview (08/01/2008): Enroll once active - enrolled documented as of this encounter (statuses as of 2024) Immunizations Name Administration Dates Next Due Hepatitis [...] money to get more. Never true 04/24/2024 [place] Depression Scale Answer Date Recorded [place] Depression Scale Total 9 02/20/2024 The thought [...] 12:30 PM EST Imaging Radiology [facility] 2nd [facility] [address] [place] [address] 05/07/2024 2:00 PM EST Office Visit Gynecology/Obstetrics [facility] [place] [address] Shantel Bowman CRNP [address] [place] [address] Nurse Alfred [facility] Return [email or web address] [address] [facility] [place] [address] 07/23/2024 1:00 PM EST Office Visit Dermatology, [address] [place] [phone] Tenisha Castañeda PA-C [address] [place] [address] [place] [address] 12/19/2024 10:00 AM EDT Office Visit Family Practice [facility] [address] [facility] [place] [address] Tenisha Gardner DO [address] [place] [address] Health Maintenance Due Date Last Done Comments [...] documented as of this encounter Care Teams Reefer Truck Driver Relationship Specialty Start Date End Date Tenisha Gardner DO [address] [place] [address] PCP - General Family Medicine 12/19/23 documented as of this encounter
--- OUTSIDE RECORDS SUMMARY | 2024-09-26 07:47 | External Medical Summary | Summary of Care ---
Author Name Unknown Organization [facility] Address [address] [place] [address] Phone [phone] Care Team Providers Care Research Rn Spec Name Role Phone Tenisha Gardner DO Primary Care Provider [phone] Encounter Details Date Type Department Care Team (Late st Contact Info) Description 05/07/2024 Telephone Gynecology/Obstetrics [facility] [address] [facility] [place] [address] Shantel Bowman CRNP [address] [facility] [address] Allergies Active Allergy Reactions Criticality Noted Date [...] resolved Need for food assistance referred to [facility] and local food [place] 02/20/2024 Laurie [...] money to get more. Never true 04/24/2024 [place] Depression Scale Answer Date Recorded [place] Depression Scale Total 9 02/20/2024 The thought [...] encounter Miscellaneous Notes * Telephone Encounter - Lucita Espinosa LPN - 05/07/2024 3:39 PM EST Phone call from pt. Pt aware and verbalizes understanding Lucita Espinosa LPN 05/07/2024 3:39 PM * Telephone Encounter - Tameka Wells LPN - 05/07/2024 3:34 PM EST left message for patient to call office * Telephone Encounter - Shantel Bowman CRNP - 05/07/2024 3:29 PM EST Needs u/s in about 2 weeks for missed anatomy, please help schedule. Order placed. documented in this encounter Plan of Treatment Upcoming Encounters Date Type Department Care Team (Late st Contact Info) Description 05/21/2024 9:45 AM EST Imaging Radiology [facility] 2nd [facility] [address] [place] [address] 06/05/2024 10:45 AM EST Office Visit Gynecology/Obstetrics [facility] [address] [place] [address] Shantel Bowman CRNP [address] [place] [address] 07/01/2024 10:00 AM EST Office Visit Dermatology [facility] [address] [place] [address] Tenisha Castañeda PA-C [address] [place] [address] [place] [address] 12/19/2024 10:00 AM EDT Office Visit Family [facility] [address] [place] [address] Tenisha Gardner DO [address] [place] [address] Scheduled Orders Name Type Priority Associated Diagnoses Orde r Schedule US PREG LIMITED 1 OR MORE FETUSES Medical Imaging Routine Encounter for follow-up ultrasound of anatomy Expected: 05/21/2024 (Approximate), Expires: 06/07/2025 Health Maintenance Due Date Last Done Comments [...] related hip pain in second trimester, antepartum Encounter for follow-up ultrasound of anatomy- Primary documented in this encounter Additional Health Concerns Active Problems Noted Date Diagnosed Date OB Reminders 02/20/2024 documented as of this encounter Care Teams Research Rn Spec Relationship Specialty Start Date End Date Tenisha Gardner DO [address] [place] [address] PCP - General Family Medicine 12/19/23 documented as of this encounter
[2024-09-26] MEDS ORDERED: OXYTOCIN 30 UNITS/NSS 30 UNITS/500 ML BAG IV PRN (08:46)
[2024-09-26] MEDS ORDERED: LIDOCAINE 1% LOCAL 20 ML VIAL INFIL PRN (08:46)
--- NOTE | 2024-09-26 09:05 | History & Physical Report ---
Date of Service September 26, 2024 Assessment & Plan (1) Encounter for induction of labor: Present on Admission?: Yes (2) AMA (advanced maternal age) multigravida 35+: Present on Admission?: Yes Plan Admit to L and D regular diet x 3 then NPO/IV Fluids Cytotec PO q 4 hrly prn labs urine drug screen GBS Negative pain meds including epidural as the pt desires Admission and Anticipated Discharge Date Admission Date: September 26, 2024 History of Present Illness Chief Complaint: Pt 34 yr IUP at 40 weeks 5 days for indcution of labor for postdates. Primary Care Provider: Tenisha Gardner, Pt 34 yr IUP at 40 weeks 4 days for induction of labor for postdates. Pt denies regua;r uterine contractions, vaginal bleeding, leaking of fluid per vagina etc. Reports god movement. Allergies Allergy/AdvReac Type Severity Reaction Status Date / Time Penicillins Allergy Unknown RX Verified 09/26/24 08:44 CHILD;HAD AMOXICILLIN W/O PROBLEM Home Medications Medication Instructions Recorded Confirmed Type vitamins no.144-folic 2 tab PO QAM 01/28/24 09/26/24 History acid 400 mcg chewable tablet () Patient History Medical History No pertinent past medical history Surgical History No history of previous surgery Family History Other Family history non-contributory Social History Smoking Status: Current every day smoker Tobacco Type: E-cigarettes / Vaping Cigarettes Per Day: 2-3 times weekly; Second Hand Exposure: No; Do You Dip or Chew Tobacco: No; Hx Alcohol Use: No Hx Substance Use: Yes Last Used Substance: Days (ago) Substance Use Type Other:: marijuana gummies 2 weeks ago for sleep Preferred Language: Chinese Communication Ability: Effective Application Coordinator Required: No Beliefs That Will Affect Care: None marital status: Legally Current Living Situation: Significant Other Current Living Situation Comment: [place] children son (8), daughter (15) Feels Safe at Home: Yes Safety Concerns: Feels Safe At This Time Assistive Devices: None OB History SAB X 2 . one at 19 weeks and one at 6 weeks Review of Systems All systems reviewed & are unremarkable except as noted in HPI & below as per Subjective / HPI as per Subjective / HPI as per Subjective / HPI as per Subjective / HPI Physical Exam Constitutional: WD/WN, vitals as above Respiratory: normal respiratory effort, lungs clear to auscultation Cardiovascular: RRR, no murmur, no edema Gastrointestinal (Abdomen): normal bowel sounds, soft, nontender, no hepatosplenomegaly Genitourinary: no vaginal lesions, no adnexal mass Speculum/Bimanual Exam: normal appearance of the vagina OB Exam Abdomen: + fundal height (41 cm), + heart tones (140s, good variability ) and + vertex Manual OB Exam: + cervical dilation 1 cm, + cervical effacement 50% and + station -2 OB Exam Monitor Tracing: + external FHT monitor used, + external uterine monitor used, + category I and + normal FHT variability Results & Data Vital Signs (Past 12 Hours) Vital Signs Temp Pulse Resp BP 09/26/24 08:00 37.1 C 20 09/26/24 07:55 100 H 129/76 Code Status & VTE Plan VTE Prophylaxis Plan VTE Prophylaxis will be ordered: No Monitoring External Monitor 140s, Good variability, positive accelerations Tocodynamometer irregular uterine contractions
[2024-09-26] MEDS: miSOPROStoL 50 MCG TAB PO SCH (09:12)
[2024-09-26 10:39] LABS: Amphetamines+Metham, Urine Neg (Neg); Barbiturates, Urine Neg (Neg); Benzodiazepine, Urine Neg (Neg); Cocaine, Urine Neg (Neg); Fentanyl, Urine Neg (Neg); MDMA (Ecstacy), Urine Neg (Neg); Marijuana, Urine Pos (Neg); Methadone, Urine Neg (Neg); Opiate, Urine Neg (Neg); Phencyclidine, Urine Neg (Neg)
[2024-09-26 11:53] LABS: Hematocrit (blood only) 33.8 % (37.0-47.0); Hemoglobin 11.8 g/dl (12.0-16.0); Mean Corpuscular Hgb Conc 34.9 g/dL (32.0-36.0); Mean Platelet Volume 9.1 fL (9.4-12.4); Platelet Count 295 K/uL (130-400); RDW Coefficient of Variation 13.5 % (11.5-14.5); RDW Standard Deviation 41.9 fL (36.4-46.3); Red Blood Count 3.93 M/uL (4.20-5.40); White Blood Count 17.07 K/ul (4.8-10.8)
[2024-09-26] MEDS: BUTORPHANOL TARTRATE 1 MG/ML VIAL IV ONE (18:20)
[2024-09-26] MEDS: LACTATED RINGER'S 1,000 ML IV PRN (18:20)
[2024-09-26] MEDS: OXYTOCIN 30 UNITS/NSS 30 UNITS/500 ML BAG IV PRN (20:37)
[2024-09-26 20:58] VITALS: RESP 18
--- NOTE | 2024-09-27 00:19 | Anesthesiology Consultation ---
Date of Service September 27, 2024 Assessment & Plan (1) Encounter for pre-operative examination: Chart Review Chart Review: Acceptable Risk for Labor Epidural History Height/Weight Height: 5 ft 4 in Weight: 104.78 kg Allergies Allergy/AdvReac Type Severity Reaction Status Date / Time Penicillins Allergy Unknown RX Verified 09/26/24 08:44 CHILD;HAD AMOXICILLIN W/O PROBLEM Medications Home Medications Medication Instructions Recorded Confirmed Last Taken vitamins no.144-folic 2 tab PO QAM 01/28/24 09/26/24 09/25/24 08:00 acid 400 mcg chewable tablet () Active Medications Generic Name Dose Route Start Last Admin Trade Name Freq PRN Reason Stop Dose Admin Lactated Ringer's 1,000 mls @ 125 mls/hr 09/26/24 08:46 09/26/24 18:20 Lr IV 09/28/24 08:45 125 mls/hr .Q8H PRN Administration L&D Protocol Protocol Oxytocin 30 units in 500 mls @ 8 mls/hr 09/26/24 19:41 09/26/24 22:30 Pitocin 30 Units/Nss IV 09/28/24 19:40 0.48 units/hr .Q24H PRN 8 mls/hr Labor Induction/Augmentation Titration Protocol 0.48 UNITS/HR Misoprostol 50 mcg 09/26/24 09:00 09/26/24 09:12 Misoprostol 50 Mcg Tab PO 10/26/24 08:59 50 mcg BID SHAWN Administration Past Medical History Medical History No pertinent past medical history Past Family History Family History Other Family history non-contributory Past Surgical History Surgical History No history of previous surgery Social History Smoking Status: Current every day smoker tobacco type: cigarettes Smoking cigarettes per day: 2-3 times weekly Do You Dip or Chew Tobacco: No Hx Alcohol Use: No Alcohol type: beer, wine and hard liquor alcohol intake frequency: a few times a week Hx Substance Use: Yes substance use type: marijuana Substance Use Type Other:: marijuana gummies 2 weeks ago for sleep Last Used Substance: Days (ago) Physical Exam Vital Signs Last Vital Signs Temp 37.0 C 09/26/24 22:30 Pulse 72 09/26/24 23:38 Resp 18 09/26/24 20:30 BP 121/77 09/26/24 23:38 Testing Laboratory Results 09/26/24 09:27 Blood Type A Positive 09/26/24 09:27 Antibody Screen NEGATIVE 09/26/24 09:27
[2024-09-27] MEDS: BUPIVACAINE 0.25% PF 30 ML VIAL ONE (00:47)
[2024-09-27] MEDS: fentaNYL citrate PF 100 MCG/2 ML VIAL ONE (00:48)
[2024-09-27] MEDS: LIDOCAINE 2%/EPINEPHRINE 1:200,000 20 ML PF ONE (00:57)
[2024-09-27] MEDS ORDERED: ROPIVACAINE 0.5% PF 5 MG/ML 20 ML VIAL EPI PRN (00:59)
[2024-09-27] MEDS ORDERED: NALOXONE HCL 0.4 MG/1 ML VIAL/CARP IV PRN (00:59)
[2024-09-27] MEDS ORDERED: BUPIVACAINE 0.25% PF 30 ML VIAL EPI PRN (00:59)
[2024-09-27] MEDS ORDERED: NALOXONE HCL 1 MG in SODIUM CHLORIDE 0.9% 1,000 ML IV PRN (00:59)
[2024-09-27] MEDS ORDERED: fentaNYL citrate PF 100 MCG/2 ML VIAL EPI PRN (00:59)
[2024-09-27] MEDS ORDERED: SODIUM CHLORIDE 0.9% PF INJ 10 ML VIAL EPI PRN (00:59)
[2024-09-27] MEDS ORDERED: ePHEDrine sulfate 50 MG/ML AMP IV PRN (00:59)
[2024-09-27] MEDS ORDERED: LIDOCAINE 2% MPF LOCAL 5 ML VIAL EPI PRN (00:59)
[2024-09-27] MEDS ORDERED: ONDANSETRON INJ 2 MG/ML 2 ML VIAL IV PRN (00:59)
[2024-09-27] MEDS: fentANYL 2 MCG/ML BUPIVacaine 0.125%-NSS 100ML BAG EPI PRN (01:39)
[2024-09-27] MEDS ORDERED: OXYTOCIN 30 UNITS/NSS 30 UNITS/500 ML BAG IV PRN (02:45)
[2024-09-27] MEDS ORDERED: DIPHTHER/TETAN/PERTUS Vaccine (Tdap, Adol/Adult) 0.5mL IM ONE (02:45)
[2024-09-27] MEDS ORDERED: ACETAMINOPHEN 325 MG TAB PO PRN (02:45)
[2024-09-27] MEDS ORDERED: HYDROCORTISONE ACETATE 25 MG SUPP PR PRN (02:45)
[2024-09-27] MEDS ORDERED: BENZOCAINE 20% SPRY 85 APPLN/85 GM CAN EXT PRN (02:45)
[2024-09-27] MEDS ORDERED: bisacodyL 10 MG SUPP PR PRN (02:45)
--- NOTE | 2024-09-27 02:51 | Delivery Summary ---
Vaginal Delivery Summary Date of Service September 27, 2024 Vaginal Delivery Summary pt fully dilated and pushing, placed in dorsal lithotomy position,, prepped and draped in usual fashion, pt pushed for couple of minutes, delivered a live viable male infant in PEGGY position, placed the infant on the mothers abdomen, bulb suctioned nose and mouth, cord clamped and cut by the FOB. placenta delivered spontaneously and complete. IV Pitocin started. EBL; 220 cc APGARS: 8, 9 at 1 and 5 min Time of the delivery: 2: 34 AM placenta delivered: 2: 28 AM
[2024-09-27] MEDS: ePHEDrine sulfate 50 MG/ML AMP ONE (03:06)
[2024-09-27] MEDS: SODIUM CHLORIDE 0.9% PF INJ 10 ML VIAL ONE (03:06)
[2024-09-27] MEDS: LIDOCAINE 2%/EPINEPHRINE 1:200,000 20 ML PF EPI STA (03:07)
[2024-09-27] MEDS: fentaNYL citrate PF 100 MCG/2 ML VIAL EPI STA (03:07)
[2024-09-27] MEDS: BUPIVACAINE 0.25% PF 30 ML VIAL EPI STA (03:07)
[2024-09-27] MEDS: fentANYL 2 MCG/ML BUPIVacaine 0.125%-NSS 100ML BAG ONE (03:09)
[2024-09-27] MEDS: SODIUM CHLORIDE 0.9% PF INJ 10 ML VIAL EPI STA (03:09)
[2024-09-27] MEDS: IBUPROFEN 600 MG TAB PO PRN (05:52)
[2024-09-27] MEDS: DOCUSATE SODIUM 100 MG CAP PO SCH (09:12)
[2024-09-27] MEDS: PRENATAL VITAMIN 1 TAB PO SCH (09:12)
[2024-09-28 07:28] LABS: Hematocrit (blood only) 36.1 % (37.0-47.0); Hemoglobin 12.2 g/dl (12.0-16.0); Mean Corpuscular Hemoglobin 29.5 pg (25.0-34.0); Mean Corpuscular Hgb Conc 33.8 g/dL (32.0-36.0); Mean Corpuscular Volume 87.2 fL (80.0-100.0); Mean Platelet Volume 9.2 fL (9.4-12.4); Platelet Count 286 K/uL (130-400); RDW Coefficient of Variation 13.8 % (11.5-14.5); RDW Standard Deviation 43.2 fL (36.4-46.3); Red Blood Count 4.14 M/uL (4.20-5.40); White Blood Count 15.79 K/ul (4.8-10.8)
[2024-09-28 08:42] VITALS: BP 104/71; PULSE 77; TEMP 97.9; O2SAT 97
--- NOTE | 2024-09-28 09:58 | Obstetrical Progress Note ---
Date of Service September 28, 2024 Subjective Ambulation: ambulating normally Voiding: no voiding problems Passing Gas:: Yes Diet Tolerance:: regular diet Lochia:: Small Feeding Type:: breast feeding Current Pain Level(1-10): 0 doing well. wants to go home Physical Exam Constitutional WD/WN, vitals as above Gastrointestinal (Abdomen) Inspection/Auscultation: abdomen normal to inspection abdomen soft and non-tender uterus firm below U Musculoskeletal Extremities: extremities normal to inspection Skin no rashes, warm and dry Neurologic patellar DTR's 2+ bilat, sensation intact Psychiatric A+Ox3, euthymic affect Results & Data Vital Signs (Past 12 Hours) Vital Signs Temp Pulse Resp BP Pulse Ox O2 Del Method 09/28/24 07:40 36.6 C 77 18 104/71 97 Room Air 09/28/24 00:30 36.9 C 84 18 104/73 98 Room Air Laboratory Results Laboratory Results - last 72 hr 09/26/24 09/26/24 09/28/24 08:15 09:27 06:50 WBC 17.07 H 15.79 H RBC 3.93 L 4.14 L Hgb 11.8 L 12.2 Hct 33.8 L 36.1 L MCV 86.0 87.2 MCH 30.0 29.5 MCHC 34.9 33.8 RDW Std Deviation 41.9 43.2 RDW Coeff of Amber 13.5 13.8 Plt Count 295 286 MPV 9.1 L 9.2 L Urine Opiates Screen Neg Ur Methadone, Qual Neg Urine Fentanyl Screen Neg Urine Barbiturates Neg Ur Phencyclidine (PCP) Neg U Amphetamin/Meth Scrn Neg MDMA (Ecstasy) Screen Neg U Benzodiazepines Scrn Neg Ur Cocaine Metabolite Neg U Marijuana (THC) Screen Pos H Treponema pallidum Ab Negative Blood Type A Positive Antibody Screen NEGATIVE
[2024-09-28] MEDS ORDERED: bisacodyL 5 MG TABEC PO SCH (20:00)
[2024-09-29 12:23] LABS: Marijuana Quant, GCMS Urine 497 ng/mL (<5)
== END 2024-09-28 14:39 | disposition home or self-care (01) | DRG 807 ==
LOC: 4S1 07:31 → 4E2 09-27 05:50